=== PATIENT | female | born 1970 | race African-American/Black ===

== ENCOUNTER 2016-06-13 09:30 | Inpatient (IN) | payer OTHER ==
[2016-06-13 10:55] VITALS: BMI 25.2
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
[2016-06-13] MEDS ORDERED: guaiFENesin/D-METHORPHAN HB 10 ML UNIT-DOSE CUPS PO PRN (13:16)
[2016-06-13] MEDS ORDERED: ACETAMINOPHEN 325 MG TABLET (FP) PO PRN (13:16)
[2016-06-13] MEDS ORDERED: MAGNESIUM CITRATE 300 ML BOTTLE PO PRN (13:16)
[2016-06-13] MEDS ORDERED: MAGNESIUM HYDROX 2400MG/30ML ORAL SUSPENSION 30 ML CUP PO PRN (13:16)
[2016-06-13] MEDS ORDERED: LOPERAMIDE HCL 2 MG CAPSULE PO PRN (13:16)
[2016-06-13] MEDS ORDERED: IBUPROFEN 400 MG TABLET (FP) PO PRN (13:16)
[2016-06-13] MEDS ORDERED: MENTHOL/PHENOL 1 EACH UD MM PRN (13:16)
[2016-06-13] MEDS ORDERED: P-EPHED 60MG/TRIPROLIDI 2.5MG TABLET PO PRN (13:16)
[2016-06-13] MEDS ORDERED: MAG HYDROX/AL HYDROX/SIMETH 30 ML UNIT-DOSE CUP PO PRN (13:16)
[2016-06-13] MEDS ORDERED: NICOTINE POLACRILEX 2 MG GUM BUC PRN (13:19)
[2016-06-13] MEDS ORDERED: METHADONE HCL 10 MG TABLET (FOR DETOX USE ONLY) PO ONE ×2 (13:52→23:00)
[2016-06-13] MEDS: chlordiazePOXIDE HCL 25 MG CAPSULE PO PRN (14:44)
[2016-06-13] MEDS: NICOTINE 21 MG/24 HOURS TOPICAL PATCH TD SCH (14:45)
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
[2016-06-13] MEDS: chlordiazePOXIDE HCL 25 MG CAPSULE PO SCH ×2 (17:32→22:56)
[2016-06-13 20:03] LABS: URINE APPEARANCE TURBID; URINE BILIRUBIN NEGATIVE (NEGATIVE); URINE BLOOD NEGATIVE (NEGATIVE); URINE COLOR YELLOW; URINE GLUCOSE (UA) NEGATIVE (NEGATIVE); URINE KETONE NEGATIVE (NEGATIVE); URINE LEUK ESTERASE NEGATIVE (NEGATIVE); URINE NITRITE NEGATIVE (NEGATIVE); URINE PROTEIN NEGATIVE (NEGATIVE); URINE UROBILINOGEN NEGATIVE E.U./dl (0.2-1.0)
[2016-06-13] MEDS ORDERED: QUEtiapine FUMARATE 50 MG TABLET PO SCH (22:00)
[2016-06-13] MEDS: NEO/POLYMYX B SULF/DEXAMETH OPHTHALMIC OINTMENT 3.5 GM OU SCH (22:56)
[2016-06-13] MEDS: THIAMINE HCL 100 MG TABLET (FP) PO SCH (22:57)
[2016-06-14] MEDS: chlordiazePOXIDE HCL 25 MG CAPSULE PO PRN ×2 (02:25→19:56)
[2016-06-14] MEDS: chlordiazePOXIDE HCL 25 MG CAPSULE PO SCH ×4 (05:48→22:42)
[2016-06-14] MEDS ORDERED: METHADONE HCL 10 MG TABLET (FOR DETOX USE ONLY) PO SCH (10:00)
[2016-06-14 10:29] LABS: MCH 30.6 pg (25.7-33.7); MCHC 32.4 g/dl (32.0-36.0); MEAN CELL VOLUME 94.3 fl (80-96); MEAN PLT VOLUME 9.6 fl (7.5-11.1); PLATELET COUNT 344 K/MM3 (134-434); RDW 20.3 % (11.6-15.6); WHITE BLOOD COUNT 6.7 K/mm3 (4.0-10.0)
[2016-06-14] MEDS ORDERED: COLLOIDAL OATMEAL 1 BAR EACH TP PRN (10:39)
[2016-06-14 10:59] LABS: ALBUMIN 3.8 g/dl (3.4-5.0); ALK PHOS 112 U/L (45-117); ANION GAP 10 (8-16); BILIRUBIN,TOTAL 0.3 mg/dL (0.2-1.0); CALCIUM 9.2 mg/dL (8.5-10.1); CO2 28 mmol/L (21-32); CREATININE 0.8 mg/dL (0.55-1.02); GLUCOSE,RANDOM 161 mg/dL (74-106); SGOT/AST 47 U/L (15-37); SGPT/ALT 48 U/L (12-78); TOT PROT 7.2 g/dl (6.4-8.2)
[2016-06-14] MEDS: NEO/POLYMYX B SULF/DEXAMETH OPHTHALMIC OINTMENT 3.5 GM OU SCH ×2 (11:03→22:42)
[2016-06-14] MEDS: PRENATAL VITAMINS W/ FOLIC ACID TABLET (FP) PO SCH (11:04)
[2016-06-14] MEDS: NICOTINE 21 MG/24 HOURS TOPICAL PATCH TD SCH (11:04)
[2016-06-14] MEDS: FLUoxetine HCL 10 MG TABLET PO SCH (11:05)
[2016-06-14] MEDS: diphenhydrAMINE HCL 25 MG CAPSULE (FP) PO PRN ×2 (11:06→18:18)
--- NOTE | 2016-06-14 13:15 | PN ---
BHS COWS - Scale Resting Pulse: 1= [place] 81-100 Sweatin= Chills/Flushing Restless Observation: 3= Extraneous Movement Pupil Size: 1= Pupils >than Normal Bone or Joint Aches: 2= Severe Diffuse Aches Runny Nose/ Eye Tearin= Runny Nose/Eyes GI Upset > 30mins: 3= Vomiting/Diarrhea Tremor Observation of Outstretched Hands: 2= Slight Tremor Visible Yawning Observation: 1= 1-2x During Session Anxiety or Irritability: 2=Irritable/Anxious Goose Flesh Skin: 0=Smooth Skin COWS Score: 18 S Progress Note (SOAP) Subjective: ALERT,IRRITABLE,ANXIOUS,INTERRUPTED SLEEP,TREMOR,PAIN IN THE BODY,JOINT AND BACK ,TREMOR ITCHING OF FACIAL AREA Objective: 06/14/16 13:14 Vital Signs Temperature 98.4 F 06/14/16 10:56 Pulse Rate 90 06/14/16 10:56 Respiratory Rate 139 H 06/14/16 10:56 Blood Pressure 131/79 06/14/16 10:56 O2 Sat by Pulse Oximetry (%) Laboratory Last Values WBC 6.7 K/mm3 (4.0-10.0) D 06/14/16 06:20 RBC 4.53 M/mm3 (3.60-5.2) 06/14/16 06:20 Hgb 13.8 GM/dL (10.7-15.3) D 06/14/16 06:20 Hct 42.7 % (32.4-45.2) 06/14/16 06:20 MCV 94.3 fl (80-96) 06/14/16 06:20 MCHC 32.4 g/dl (32.0-36.0) 06/14/16 06:20 RDW 20.3 % (11.6-15.6) H D 06/14/16 06:20 Plt Count 344 K/MM3 (134-434) D 06/14/16 06:20 MPV 9.6 fl (7.5-11.1) 06/14/16 06:20 Sodium 139 mmol/L (136-145) 06/14/16 06:20 Potassium 4.4 mmol/L (3.5-5.1) 06/14/16 06:20 Chloride 101 mmol/L (98-107) 06/14/16 06:20 Carbon Dioxide 28 mmol/L (21-32) 06/14/16 06:20 Anion Gap 10 (8-16) 06/14/16 06:20 BUN 11 mg/dL (7-18) 06/14/16 06:20 Creatinine 0.8 mg/dL (0.55-1.02) D 06/14/16 06:20 Creat Clearance w eGFR > 60 (>60) 06/14/16 06:20 Random Glucose 161 mg/dL (74-106) H 06/14/16 06:20 Calcium 9.2 mg/dL (8.5-10.1) 06/14/16 06:20 Total Bilirubin 0.3 mg/dL (0.2-1.0) D 06/14/16 06:20 AST 47 U/L (15-37) H D 06/14/16 06:20 ALT 48 U/L (12-78) D 06/14/16 06:20 Alkaline Phosphatase 112 U/L (45-117) 06/14/16 06:20 Total Protein 7.2 g/dl (6.4-8.2) 06/14/16 06:20 Albumin 3.8 g/dl (3.4-5.0) 06/14/16 06:20 Urine Color Yellow 06/13/16 19:45 Urine Appearance Turbid 06/13/16 19:45 Urine pH 8.0 (5.0-8.0) 06/13/16 19:45 Ur Specific [place] 1.018 (1.001-1.035) 06/13/16 19:45 Urine Protein Negative (NEGATIVE) 06/13/16 19:45 Urine Glucose (UA) Negative (NEGATIVE) 06/13/16 19:45 Urine Ketones Negative (NEGATIVE) 06/13/16 19:45 Urine Blood Negative (NEGATIVE) 06/13/16 19:45 Urine Nitrite Negative (NEGATIVE) 06/13/16 19:45 Urine Bilirubin Negative (NEGATIVE) 06/13/16 19:45 Urine Urobilinogen Negative E.U./dl (0.2-1.0) 06/13/16 19:45 Ur Leukocyte Esterase Negative (NEGATIVE) 06/13/16 19:45 Assessment: 06/14/16 13:15 WITHDRAWAL SYMPTOM Plan: CONTINUE DETOX,BGM MONITORING INITIAL GLUCOSE IS 161
--- NOTE | 2016-06-14 18:31 | EKG ---
Test Reason : Blood Pressure : / mmHG Vent. Rate : 098 BPM Atrial Rate : 098 BPM P-R Int : 122 ms QRS Dur : 078 ms QT Int : 348 ms P-R-T Axes : 062 042 037 degrees QTc Int : 444 ms NORMAL SINUS RHYTHM POSSIBLE LEFT ATRIAL ENLARGEMENT SEPTAL INFARCT , AGE UNDETERMINED ABNORMAL ECG NO PREVIOUS ECGS AVAILABLE Confirmed by IRINA CHRIS MD ([id number]) on 06/14/2016 6:31:14 PM Referred By: Confirmed By:IRINA CHRIS MD
[2016-06-14] MEDS: diphenhydrAMINE HCL 50 MG CAPSULE PO PRN (22:41)
[2016-06-14] MEDS: THIAMINE HCL 100 MG TABLET (FP) PO SCH (22:41)
[2016-06-14] MEDS: QUEtiapine FUMARATE 100 MG TABLET (FP) PO SCH (22:42)
[2016-06-14] MEDS: HYDROCORTISONE 1% TOPICAL CREAM 30 GM TUBE TP SCH (22:42)
[2016-06-15] MEDS: hydrOXYzine PAMOATE 50 MG CAPSULE (FP) PO PRN (03:51)
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
[2016-06-15] MEDS: chlordiazePOXIDE HCL 25 MG CAPSULE PO SCH ×2 (06:24→10:42)
[2016-06-15] MEDS: PRENATAL VITAMINS W/ FOLIC ACID TABLET (FP) PO SCH (10:40)
[2016-06-15] MEDS: METHADONE HCL 5 MG TABLET (FOR DETOX USE ONLY) PO SCH (10:42)
[2016-06-15] MEDS: HYDROCORTISONE 1% TOPICAL CREAM 30 GM TUBE TP SCH ×2 (10:42→22:45)
[2016-06-15] MEDS: NEO/POLYMYX B SULF/DEXAMETH OPHTHALMIC OINTMENT 3.5 GM OU SCH ×2 (10:42→22:47)
[2016-06-15] MEDS: NICOTINE 21 MG/24 HOURS TOPICAL PATCH TD SCH (10:43)
[2016-06-15] MEDS: FLUoxetine HCL 10 MG TABLET PO SCH (10:45)
[2016-06-15] MEDS: chlordiazePOXIDE HCL 25 MG CAPSULE PO PRN (13:46)
--- NOTE | 2016-06-15 17:10 | PN ---
S CIWA - CIWA Score Nausea/Vomitin Muscle Tremors: 4-Moderate,w/Arms Extend Anxiety: 4-Mod. Anxious/Guarded Agitation: 4-Moderately Restless Paroxysmal Sweats: No Perspiration Orientation: 0-Oriented Tacttile Disturbances: 1-Very Mild Itch/Numbness Auditory Disturbances: 0-None Visual Disturbances: 0-None Headache: 2-Mild CIWA-Ar Total Score: 18 BHS COWS - Scale Resting Pulse: 1= [place] 81-100 Sweatin= Chills/Flushing Restless Observation: 3= Extraneous Movement Pupil Size: 0= Normal to Room Light Bone or Joint Aches: 2= Severe Diffuse Aches Runny Nose/ Eye Tearin= Runny Nose/Eyes GI Upset > 30mins: 2= Nausea/Diarrhea Tremor Observation of Outstretched Hands: 2= Slight Tremor Visible Yawning Observation: 0= None Anxiety or Irritability: 2=Irritable/Anxious Goose Flesh Skin: 0=Smooth Skin COWS Score: 15 BHS Progress Note (SOAP) Subjective: Back pain, rhinorrhea, sweating, anxious, restless, interrupted sleep, chills; patient reported she was sitting at edge of her bed last night and fell to the floor hitting her left shoulder. She denies hitting her head and denies shoulder pain. Objective: 06/15/16 17:09 Last Vital Signs Temp Pulse Resp BP Pulse Ox 98.1 F 81 18 103/64 06/15/16 16:50 06/15/16 16:50 06/15/16 16:50 06/15/16 16:50 Laboratory Tests 06/13/16 06/14/16 06/14/16 19:45 06:20 06:20 WBC 6.7 D RBC 4.53 Hgb 13.8 D Hct 42.7 MCV 94.3 MCHC 32.4 RDW 20.3 H D Plt Count 344 D MPV 9.6 Sodium 139 Potassium 4.4 Chloride 101 Carbon Dioxide 28 Anion Gap 10 BUN 11 Creatinine 0.8 D Creat Clearance w eGFR > 60 POC Glucometer Random Glucose 161 H Calcium 9.2 Total Bilirubin 0.3 D AST 47 H D ALT 48 D Alkaline Phosphatase 112 Total Protein 7.2 Albumin 3.8 Urine Color Yellow Urine Appearance Turbid Urine pH 8.0 Ur Specific [place] 1.018 Urine Protein Negative Urine Glucose (UA) Negative Urine Ketones Negative Urine Blood Negative Urine Nitrite Negative Urine Bilirubin Negative Urine Urobilinogen Negative Ur Leukocyte Esterase Negative RPR Titer 06/14/16 06/14/16 06/15/16 06:20 16:34 06:32 WBC RBC Hgb Hct MCV MCHC RDW Plt Count MPV Sodium Potassium Chloride Carbon Dioxide Anion Gap BUN Creatinine Creat Clearance w eGFR POC Glucometer 105 119 Random Glucose Calcium Total Bilirubin AST ALT Alkaline Phosphatase Total Protein Albumin Urine Color Urine Appearance Urine pH Ur Specific [place] Urine Protein Urine Glucose (UA) Urine Ketones Urine Blood Urine Nitrite Urine Bilirubin Urine Urobilinogen Ur Leukocyte Esterase RPR Titer Nonreactive Labs noted RN reported + ppd reading Assessment: 06/15/16 17:09 Withdrawal symptoms Noted with PPD + S/P Fall without injury Plan: Continue detox Positive PPD: chest xray PA/Lateral in AM S/P Fall: fall precaution maintained, continue safe milieu
[2016-06-15] MEDS: chlordiazePOXIDE 5 MG CAPSULE PO SCH ×2 (17:25→22:46)
[2016-06-15] MEDS: diphenhydrAMINE HCL 25 MG CAPSULE (FP) PO PRN (18:25)
[2016-06-15] MEDS: AMMONIUM LACTATE 12% LOTION 225 GM BOTTLE TP SCH (22:46)
[2016-06-15] MEDS: THIAMINE HCL 100 MG TABLET (FP) PO SCH (22:47)
[2016-06-15] MEDS: QUEtiapine FUMARATE 100 MG TABLET (FP) PO SCH (22:47)
[2016-06-15] MEDS: diphenhydrAMINE HCL 50 MG CAPSULE PO PRN (22:49)
[2016-06-16] MEDS: hydrOXYzine PAMOATE 50 MG CAPSULE (FP) PO PRN (01:35)
[2016-06-16] MEDS: chlordiazePOXIDE 5 MG CAPSULE PO SCH ×2 (05:46→10:43)
[2016-06-16] MEDS: PRENATAL VITAMINS W/ FOLIC ACID TABLET (FP) PO SCH (10:43)
[2016-06-16] MEDS: HYDROCORTISONE 1% TOPICAL CREAM 30 GM TUBE TP SCH ×2 (10:43→22:31)
[2016-06-16] MEDS: NEO/POLYMYX B SULF/DEXAMETH OPHTHALMIC OINTMENT 3.5 GM OU SCH ×2 (10:43→22:32)
[2016-06-16] MEDS: METHADONE HCL 5 MG TABLET (FOR DETOX USE ONLY) PO SCH (10:43)
[2016-06-16] MEDS: FLUoxetine HCL 10 MG TABLET PO SCH (10:44)
[2016-06-16] MEDS: NICOTINE 21 MG/24 HOURS TOPICAL PATCH TD SCH (10:44)
[2016-06-16] MEDS: AMMONIUM LACTATE 12% LOTION 225 GM BOTTLE TP SCH ×2 (10:44→22:31)
--- NOTE | 2016-06-16 12:20 | PN ---
BHS Progress Note (SOAP) Subjective: interrupted sleep, sweats, itchy eyes-skin Objective: 06/16/16 12:18 Vital Signs Temperature 97.9 F 06/16/16 10:00 Pulse Rate 90 06/16/16 10:00 Respiratory Rate 20 06/16/16 10:00 Blood Pressure 126/74 06/16/16 10:00 O2 Sat by Pulse Oximetry (%) Laboratory Tests 06/13/16 06/14/16 06/14/16 19:45 06:20 06:20 WBC 6.7 D RBC 4.53 Hgb 13.8 D Hct 42.7 MCV 94.3 MCHC 32.4 RDW 20.3 H D Plt Count 344 D MPV 9.6 Sodium 139 Potassium 4.4 Chloride 101 Carbon Dioxide 28 Anion Gap 10 BUN 11 Creatinine 0.8 D Creat Clearance w eGFR > 60 POC Glucometer Random Glucose 161 H Calcium 9.2 Total Bilirubin 0.3 D AST 47 H D ALT 48 D Alkaline Phosphatase 112 Total Protein 7.2 Albumin 3.8 Urine Color Yellow Urine Appearance Turbid Urine pH 8.0 Ur Specific [place] 1.018 Urine Protein Negative Urine Glucose (UA) Negative Urine Ketones Negative Urine Blood Negative Urine Nitrite Negative Urine Bilirubin Negative Urine Urobilinogen Negative Ur Leukocyte Esterase Negative RPR Titer 06/14/16 06/14/16 06/15/16 06:20 16:34 06:32 WBC RBC Hgb Hct MCV MCHC RDW Plt Count MPV Sodium Potassium Chloride Carbon Dioxide Anion Gap BUN Creatinine Creat Clearance w eGFR POC Glucometer 105 119 Random Glucose Calcium Total Bilirubin AST ALT Alkaline Phosphatase Total Protein Albumin Urine Color Urine Appearance Urine pH Ur Specific [place] Urine Protein Urine Glucose (UA) Urine Ketones Urine Blood Urine Nitrite Urine Bilirubin Urine Urobilinogen Ur Leukocyte Esterase RPR Titer Nonreactive 06/15/16 06/16/16 16:48 06:29 WBC RBC Hgb Hct MCV MCHC RDW Plt Count MPV Sodium Potassium Chloride Carbon Dioxide Anion Gap BUN Creatinine Creat Clearance w eGFR POC Glucometer 134 199 Random Glucose Calcium Total Bilirubin AST ALT Alkaline Phosphatase Total Protein Albumin Urine Color Urine Appearance Urine pH Ur Specific [place] Urine Protein Urine Glucose (UA) Urine Ketones Urine Blood Urine Nitrite Urine Bilirubin Urine Urobilinogen Ur Leukocyte Esterase RPR Titer pt aox3 in nad ambulating eyes emir lateral skin redness Assessment: 06/16/16 12:19 withdrawl sx's itchy eye s Plan: cont. detox increase fluids cont ab/sterriod cream
--- NOTE | 2016-06-16 13:50 | CONSULT ---
[facility] Psychiatric Consult - Data Date of interview: 06/16/16 Admission source: [facility] Psychiatric Findings - Problem List ([place] 1, 2,3) (1) Alcohol dependence with uncomplicated withdrawal Current Visit: Yes Status: Acute (2) Opioid dependence with withdrawal Current Visit: Yes Status: Acute (3) Opioid dependence on agonist therapy Current Visit: Yes Status: Acute (4) Nicotine dependence Current Visit: Yes Status: Acute (5) Substance induced mood disorder Current Visit: Yes Status: Acute (6) Chronic low back pain Current Visit: Yes Status: Chronic (7) Insomnia Current Visit: Yes Status: Acute
[2016-06-16] MEDS: chlordiazePOXIDE HCL 10 MG CAPSULE PO SCH ×2 (17:13→22:32)
[2016-06-16] MEDS: diphenhydrAMINE HCL 25 MG CAPSULE (FP) PO PRN (17:15)
--- NOTE | 2016-06-16 17:44 | PN ---
Psychiatric Progress Note Vital Signs: Vital Signs Period Temp Pulse Resp BP Sys/Barton Pulse Ox Last 24 Hr 97.9 F-98.2 F 75-90 16-20 103-126/63-76 Date of Session: 06/16/16 Chief Complaint:: " I cannot sleep at night." HPI: Day 4 of detox treatment for alcohol and heroin dependence.Uneventful hospital course except for complaint of chronic insomnia.Patient is requesting zolpidem at bedtime.This is the reason for this re-consult. ROS: Unremarkable.Patient is ambulatory,visible and well controlled.Intact cognition. Current Medications: Active Medications Generic Name Dose Route Start Last Admin Trade Name Freq PRN Reason Stop Dose Admin Acetaminophen 650 mg 06/13/16 13:16 Tylenol - PO Q4H PRN FEVER OR PAIN Al Hydroxide/Mg Hydroxide 30 ml 06/13/16 13:16 Mylanta Oral Suspension - PO Q6H PRN DYSPEPSIA Chlordiazepoxide HCl 10 mg 06/16/16 17:00 06/16/16 17:13 Librium - PO 06/17/16 11:01 10 mg [id number] NORIS Administration Colloidal Oatmeal 1 applic 06/14/16 10:39 06/14/16 18:19 Aveeno Soap - TP 1 applic DAILY PRN Administration HYGEINE Diphenhydramine HCl 50 mg 06/13/16 13:16 06/15/16 22:49 Benadryl - PO 50 mg HSMR1 PRN Administration INSOMNIA Diphenhydramine HCl 25 mg 06/14/16 10:39 06/16/16 17:15 Benadryl - PO 25 mg Q6H PRN Administration FOR ITCHING Eucalyptus/Menthol/Phenol/Sorbitol 1 each 06/13/16 13:16 Cepastat Lozenge - MM Q4H PRN SORE THROAT Fluoxetine HCl 10 mg 06/14/16 10:00 06/16/16 10:44 Prozac - PO 10 mg DAILY NORIS Administration Guaifenesin 10 ml 06/13/16 13:16 Robitussin Dm - PO Q6H PRN COUGH Hydrocortisone 1 applic 06/14/16 22:00 06/16/16 10:43 Hytone 1% Cream - TP 1 applic BID NORIS Administration Hydroxyzine Pamoate 50 mg 06/15/16 00:41 06/16/16 01:35 Vistaril - PO 50 mg Q4H PRN Administration FOR ITCHING Ibuprofen 400 mg 06/13/16 13:16 06/15/16 18:25 Motrin - PO 400 mg Q6H PRN Administration SEVERE PAIN Lactic Acid 1 applic 06/15/16 22:00 06/16/16 10:44 Lac-Hydrin 12 TP 1 applic BID NORIS Administration Loperamide HCl 4 mg 06/13/16 13:16 Imodium - PO Q6H PRN DIARRHEA Magnesium Citrate 300 ml 06/13/16 13:16 Citroma - PO Q48H PRN CONSTIPATION Magnesium Hydroxide 30 ml 06/13/16 13:16 Milk Of Magnesia - PO DAILY PRN CONSTIPATION Methadone HCl 10 mg 06/17/16 10:00 Dolophine - PO 06/17/16 10:01 DAILY NORIS Methadone HCl 5 mg 06/18/16 06:00 Dolophine - PO 06/18/16 06:01 DAILY@0600 NORIS Neomycin/Polymyxin/Dexamethasone 1 applic 06/13/16 22:00 06/16/16 10:43 Maxitrol Eye Ointment - OU 1 applic BID NORIS Administration Nicotine 21 mg 06/13/16 13:52 06/16/16 10:44 Nicoderm Patch - TD Not Given DAILY NORIS Nicotine Polacrilex 2 mg 06/13/16 13:19 Nicorette Gum - BUC Q2H PRN NICOTINE REPLACEMENT RX Multivit/Folic Acid/Iron 1 tab 06/14/16 10:00 06/16/16 10:43 Vitamins ([facility]) - PO 1 tab DAILY NORIS Administration Pseudoephedrine/Triprolidine 1 combo 06/13/16 13:16 Actifed - PO TID PRN NASAL CONGESTION Quetiapine Fumarate 100 mg 06/14/16 22:00 06/15/16 22:47 Seroquel - PO 100 mg HS NORIS Administration Thiamine HCl 100 mg 06/13/16 22:00 06/15/16 22:47 Vitamin B1 - PO 100 mg HS NORIS Administration Medication(s) Change(s): Ambien 10 mg po hs prn.Patient is made aware of the risk of parasomnias.She states that she never experienced adverse effects with zolpidem.She agrees with this careplan. Current Side Effect: No Lab tests ordered: No Lab tests reviewed: Yes Provider note:: Patient is doing fine.No evidence of psychosis or mood swings.Ms Butler has clearly indicated to this verse writer that she wanted " ambien to be given to me at bedtime ".No other request or complaints.Ms Butler expressed her satisfaction at the information that zolpidem will be added to her regimen of medications.Stable mental status (see report).Unremarkable hospital course. Total face to face time:: 30 Mental Status Exam - Mental Status Exam Alert and Oriented to: Time, Place, Person Cognitive Function: Good Patient Appearance: Well Groomed Mood: Hopeful, Euthymic Affect: Appropriate, Normal Range Patient Behavior: Appropriate, Cooperative Speech Pattern: Clear Voice Loudness: Normal Thought Process: Goal Oriented Thought Disorder: Not Present Hallucinations: Denies Suicidal Ideation: Denies Homicidal Ideation: Denies Insight/Judgement: Poor Sleep: Poorly, Difficulty falling asleep Appetite: Good Muscle strength/Tone: Normal Gait/Station: Normal Psychiatric Treatment Plan - Problem List (1) Alcohol dependence with uncomplicated withdrawal Current Visit: Yes (2) Opioid dependence with withdrawal Current Visit: Yes (3) Opioid dependence on agonist therapy Current Visit: Yes (4) Nicotine dependence Current Visit: Yes (5) Substance induced mood disorder Current Visit: Yes (6) Chronic low back pain Current Visit: Yes (7) Insomnia Current Visit: Yes
[2016-06-16] MEDS ORDERED: ZOLPIDEM TARTRATE 10 MG TABLET (PARK CARE ONLY) PO PRN (17:48)
[2016-06-16] MEDS: diphenhydrAMINE HCL 50 MG CAPSULE PO PRN (22:30)
[2016-06-16] MEDS: QUEtiapine FUMARATE 100 MG TABLET (FP) PO SCH (22:32)
[2016-06-16] MEDS: THIAMINE HCL 100 MG TABLET (FP) PO SCH (22:32)
[2016-06-17] MEDS: chlordiazePOXIDE HCL 10 MG CAPSULE PO SCH ×2 (05:49→10:26)
[2016-06-17] MEDS: diphenhydrAMINE HCL 25 MG CAPSULE (FP) PO PRN ×2 (05:51→15:42)
[2016-06-17] MEDS ORDERED: chlordiazePOXIDE 5 MG CAPSULE ONE (09:23)
[2016-06-17] MEDS ORDERED: METHADONE HCL 10 MG TABLET (FOR DETOX USE ONLY) PO SCH (10:00)
[2016-06-17] MEDS: PRENATAL VITAMINS W/ FOLIC ACID TABLET (FP) PO SCH (10:24)
[2016-06-17] MEDS: NICOTINE 21 MG/24 HOURS TOPICAL PATCH TD SCH (10:25)
[2016-06-17] MEDS: FLUoxetine HCL 10 MG TABLET PO SCH (10:25)
[2016-06-17] MEDS: NEO/POLYMYX B SULF/DEXAMETH OPHTHALMIC OINTMENT 3.5 GM OU SCH ×2 (10:25→22:55)
[2016-06-17] MEDS: AMMONIUM LACTATE 12% LOTION 225 GM BOTTLE TP SCH ×2 (10:27→22:55)
[2016-06-17] MEDS: HYDROCORTISONE 1% TOPICAL CREAM 30 GM TUBE TP SCH ×2 (10:33→22:56)
--- NOTE | 2016-06-17 10:53 | PN ---
BHS Progress Note (SOAP) Subjective: irritable agitation interrupted sleep Objective: 06/17/16 10:52 Vital Signs Temperature 99.6 F 06/17/16 10:06 Pulse Rate 78 06/17/16 10:06 Respiratory Rate 18 06/17/16 10:06 Blood Pressure 125/75 06/17/16 10:06 O2 Sat by Pulse Oximetry (%) awake/alert ambulating no acute distress Assessment: 06/17/16 10:53 withdrawal sx Plan: continue detox increase fluids d/c in am
[2016-06-17] MEDS: QUEtiapine FUMARATE 100 MG TABLET (FP) PO SCH (22:55)
[2016-06-17] MEDS: THIAMINE HCL 100 MG TABLET (FP) PO SCH (22:55)
[2016-06-17] MEDS: diphenhydrAMINE HCL 50 MG CAPSULE PO PRN (22:56)
[2016-06-18] MEDS: hydrOXYzine PAMOATE 50 MG CAPSULE (FP) PO PRN ×3 (02:19→11:04)
[2016-06-18] MEDS ORDERED: METHADONE HCL 5 MG TABLET (FOR DETOX USE ONLY) PO SCH (06:00)
--- NOTE | 2016-06-18 09:27 | DS ---
[facility] Detox Discharge Summary Admission Date: 06/13/16 - History Present History: Alcohol Dependence, Cocaine Dependence, Opioid Dependence - Physical Exam Results Vital Signs: Vital Signs Temperature 97.1 F L 06/18/16 07:02 Pulse Rate 84 06/18/16 07:02 Respiratory Rate 18 06/18/16 07:02 Blood Pressure 110/60 06/18/16 07:02 O2 Sat by Pulse Oximetry (%) - Treatment Hospital Course: Detox Protocol Followed, Detoxed Safely, Responded well, Discharged Condition Good - Medication Discharge Medications: Ambulatory Orders Fluoxetine HCl [Prozac -] 10 mg PO DAILY #30 capsule 06/14/16 Quetiapine Fumarate [Seroquel] 100 mg PO HS #30 tablet 06/14/16 - AMA Did Patient Leave Against Medical Advice: No
[2016-06-18] MEDS ORDERED: FLUoxetine HCL 10 MG CAPSULE (FP) PO SCH (10:00)
[2016-06-18 10:49] VITALS: BP 127/60; PULSE 91; TEMP 98.2
[2016-06-18] MEDS: PRENATAL VITAMINS W/ FOLIC ACID TABLET (FP) PO SCH (10:59)
[2016-06-18] MEDS: HYDROCORTISONE 1% TOPICAL CREAM 30 GM TUBE TP SCH (11:00)
[2016-06-18] MEDS: NEO/POLYMYX B SULF/DEXAMETH OPHTHALMIC OINTMENT 3.5 GM OU SCH (11:01)
[2016-06-18] MEDS: NICOTINE 21 MG/24 HOURS TOPICAL PATCH TD SCH (11:03)
[2016-06-18] MEDS: AMMONIUM LACTATE 12% LOTION 225 GM BOTTLE TP SCH (11:04)
== END 2016-06-18 11:11 | disposition other institution (70) | DRG 773 ==
LOC: YASAS 09:30 → Y6N 13:24
PROVIDERS: ADMIT Internal Medicine; ATTEND Internal Medicine
PROC: HZ2ZZZZ Detoxification Services for Substance Abuse Treatment (ICD-10-PCS; principal; 2016-06-13)
DX: F11.23 Opioid dependence with withdrawal (principal); F10.230 Alcohol dependence with withdrawal, uncomplicated; F14.20 Cocaine dependence, uncomplicated; F17.210 Nicotine dependence, cigarettes, uncomplicated; F19.24 Other psychoactive substance dependence with psychoactive substance-induced mood disorder; M54.5 Low back pain; G89.29 Other chronic pain; G47.00 Insomnia, unspecified; H57.8 Other specified disorders of eye and adnexa; R76.11 Nonspecific reaction to tuberculin skin test without active tuberculosis; I10 Essential (primary) hypertension; M19.90 Unspecified osteoarthritis, unspecified site; Z91.14 Patient's other noncompliance with medication regimen; W06.XXXA Fall from bed, initial encounter; Z91.81 History of falling; Y93.89 Activity, other specified; Y92.230 Patient room in hospital as the place of occurrence of the external cause
CPT/HCPCS: 36415; 71020-TC; 80053; 81003; 85027; 86593; 93005; 93010

== ENCOUNTER 2016-06-18 11:26 | Inpatient (IN) | payer OTHER ==
--- NOTE | 2016-06-18 13:51 | HP ---
Psychiatrist Admission - Data Date of interview: 06/18/16 Admission source: [address] [place] [address] detox Identifying data: This is the fourth admission to [address] [place] [address] for this 45 years old AA single mother of 4 adult children, unemployed,homeless,supported by PA and family. Medical History: Significant for Low back pain. Psychiatric History: Patient reports first contact with psychiatrist at school age due to behavioral problems,poor concentration.She was dx with ADHD and placed on Ritalin for a while.Patient denies psychiatric admissions.she was seen psychiatrist on outpatient basis mostly when she is at Drug rehabilitation treatment .Currently she is on Seroquel 100 mg po hs and Prozac 10 mg po daily prescribed by psychiatrist at [facility] a few months ago and then continued in Detox on [address] [place] [address] . Vital Signs: Vital Signs - 24 hr 06/18/16 11:53 Temperature 98.1 F Pulse Rate 91 H Respiratory 18 Rate Blood Pressure 121/79 Allergies/Adverse Reactions: Allergies Allergy/AdvReac Type Severity Reaction Status Date / Time pork derived (porcine) Allergy Severe Hives Verified 06/13/16 12:23 No Known Drug Allergies Allergy Verified 06/13/16 12:23 red sauce Allergy Severe Hives Uncoded 06/13/16 12:23 NKDA Allergy Uncoded 06/13/16 12:23 Date of last physical exam: 06/13/16 Concur with the findings of this exam: Yes - Substance Abuse/Tx History Hx Alcohol Use: Yes (reports drinking since 19 yo,2 pints of vodka) Hx Substance Use: Yes (heroin since 42 -5 bags,cocaine) Substance Use Type: Alcohol, Cocaine, Heroin Hx Substance Use Treatment: Yes (completed this program in 2016) - Admission Criteria Previous failed treatment: Yes Poor recovery environment: Yes Comorbidities: Yes Lacks judgement: Yes Mental Status Exam - Mental Status Exam Alert and Oriented to: Time, Place, Person Cognitive Function: Grossly Intact Patient Appearance: Unkempt Mood: Sad, Irritable Affect: Labile Patient Behavior: Cooperative Speech Pattern: Clear Voice Loudness: Mildly Loud Thought Process: Goal Oriented Thought Disorder: Being Controlled Hallucinations: Denies Suicidal Ideation: Denies Homicidal Ideation: Denies Insight/Judgement: Fair Sleep: Difficulty falling asleep Appetite: Good Muscle strength/Tone: Normal Gait/Station: Normal Psychiatric Findings - Problem List ([place] 1, 2,3) (1) Nicotine dependence Current Visit: No Status: Acute (2) Opioid dependence on agonist therapy Current Visit: No Status: Acute (3) Substance induced mood disorder Current Visit: No Status: Acute (4) Alcohol dependence Current Visit: No Status: Chronic - Initial Treatment Plan Initial Treatment Plan: Continue Seroquel 100 mg po hs,start Belsomra 10 mg po hs. Will monitor progress.
--- NOTE | 2016-06-18 14:26 | HP ---
[facility] Rehab Assess/Revision - Admission History Admitted to Rehab from: [facility] Date of Admission to Rehab: 06/18/16 - Vital signs Vital Signs: Vital Signs Period Temp Pulse Resp BP Sys/Barton Pulse Ox Last 24 Hr 98.1 F 91 18 121/79 - Findings Detox History & Physical reviewed: Yes Concur with findings: Yes
[2016-06-18] MEDS ORDERED: P-EPHED 60MG/TRIPROLIDI 2.5MG TABLET PO PRN (14:29)
[2016-06-18] MEDS ORDERED: NICOTINE POLACRILEX 2 MG GUM BUC PRN (14:29)
[2016-06-18] MEDS ORDERED: MENTHOL/PHENOL 1 EACH UD MM PRN (14:29)
[2016-06-18] MEDS ORDERED: guaiFENesin/D-METHORPHAN HB 10 ML UNIT-DOSE CUPS PO PRN (14:29)
[2016-06-18] MEDS ORDERED: MAGNESIUM HYDROX 2400MG/30ML ORAL SUSPENSION 30 ML CUP PO PRN (14:29)
[2016-06-18] MEDS ORDERED: MAGNESIUM CITRATE 300 ML BOTTLE PO PRN (14:29)
[2016-06-18] MEDS ORDERED: LOPERAMIDE HCL 2 MG CAPSULE PO PRN (14:29)
[2016-06-18] MEDS ORDERED: MAG HYDROX/AL HYDROX/SIMETH 30 ML UNIT-DOSE CUP PO PRN (14:29)
[2016-06-18] MEDS ORDERED: diphenhydrAMINE HCL 50 MG CAPSULE PO PRN (14:29)
[2016-06-18] MEDS: hydrOXYzine PAMOATE 50 MG CAPSULE (FP) PO PRN (17:09)
[2016-06-18] MEDS: QUEtiapine FUMARATE 100 MG TABLET (FP) PO SCH (21:50)
[2016-06-18] MEDS: THIAMINE HCL 100 MG TABLET (FP) PO SCH (21:50)
[2016-06-18] MEDS ORDERED: PT OWN MED DRAWER 7, Y5N ONE (21:51)
[2016-06-18] MEDS: NEO/POLYMYX B SULF/DEXAMETH OPHTHALMIC OINTMENT 3.5 GM OU SCH (21:52)
[2016-06-19] MEDS: IBUPROFEN 400 MG TABLET (FP) PO PRN (03:50)
[2016-06-19] MEDS: hydrOXYzine PAMOATE 50 MG CAPSULE (FP) PO PRN ×3 (03:54→15:22)
[2016-06-19] MEDS: ACETAMINOPHEN 325 MG TABLET (FP) PO PRN (03:55)
[2016-06-19] MEDS: AMMONIUM LACTATE 12% LOTION 225 GM BOTTLE TP PRN (06:37)
[2016-06-19] MEDS ORDERED: PT OWN MED DRAWER 7, Y5N ONE ×2 (08:29→10:34)
[2016-06-19] MEDS: NEO/POLYMYX B SULF/DEXAMETH OPHTHALMIC OINTMENT 3.5 GM OU SCH (10:28)
[2016-06-19] MEDS: PRENATAL VITAMINS W/ FOLIC ACID TABLET (FP) PO SCH (10:28)
[2016-06-19] MEDS: QUEtiapine FUMARATE 100 MG TABLET (FP) PO SCH (21:50)
[2016-06-19] MEDS: THIAMINE HCL 100 MG TABLET (FP) PO SCH (21:50)
[2016-06-19] MEDS: NEO/POLYMYX B SULF/DEXAMETH OPHTHALMIC OINTMENT 3.5 GM TP SCH (21:51)
[2016-06-20] MEDS: ACETAMINOPHEN 325 MG TABLET (FP) PO PRN (00:33)
[2016-06-20] MEDS: hydrOXYzine PAMOATE 50 MG CAPSULE (FP) PO PRN ×5 (00:34→21:56)
[2016-06-20] MEDS: COLLOIDAL OATMEAL 1 BAR EACH TP PRN (06:19)
[2016-06-20] MEDS: AMMONIUM LACTATE 12% LOTION 225 GM BOTTLE TP PRN (06:19)
[2016-06-20] MEDS ORDERED: PT OWN MED DRAWER 7, Y5N ONE ×3 (08:38→20:08)
[2016-06-20] MEDS: PRENATAL VITAMINS W/ FOLIC ACID TABLET (FP) PO SCH (10:36)
[2016-06-20] MEDS: NEO/POLYMYX B SULF/DEXAMETH OPHTHALMIC OINTMENT 3.5 GM TP SCH ×2 (10:37→21:53)
--- NOTE | 2016-06-20 15:05 | PN ---
BHS Progress Note Note: edema of right leg,swelling of right leg ,denied trauma,pain on palpation,homann 's sign negative,will do venous droppler of right lower leg to r/o dvt on thu06/23/16
[2016-06-20] MEDS: THIAMINE HCL 100 MG TABLET (FP) PO SCH (21:53)
[2016-06-20] MEDS: QUEtiapine FUMARATE 100 MG TABLET (FP) PO SCH (21:53)
[2016-06-21] MEDS: hydrOXYzine PAMOATE 50 MG CAPSULE (FP) PO PRN ×4 (04:16→19:51)
[2016-06-21] MEDS: PRENATAL VITAMINS W/ FOLIC ACID TABLET (FP) PO SCH (10:38)
[2016-06-21] MEDS: NEO/POLYMYX B SULF/DEXAMETH OPHTHALMIC OINTMENT 3.5 GM TP SCH ×2 (10:38→21:44)
[2016-06-21] MEDS ORDERED: PT OWN MED DRAWER 7, Y5N ONE (10:39)
[2016-06-21] MEDS: AMMONIUM LACTATE 12% LOTION 225 GM BOTTLE TP PRN (10:42)
[2016-06-21] MEDS: diphenhydrAMINE HCL 25 MG CAPSULE (FP) PO PRN (14:02)
[2016-06-21] MEDS: THIAMINE HCL 100 MG TABLET (FP) PO SCH (21:44)
[2016-06-21] MEDS: QUEtiapine FUMARATE 100 MG TABLET (FP) PO SCH (21:44)
[2016-06-22] MEDS: hydrOXYzine PAMOATE 50 MG CAPSULE (FP) PO PRN ×3 (05:10→15:24)
[2016-06-22] MEDS: NEO/POLYMYX B SULF/DEXAMETH OPHTHALMIC OINTMENT 3.5 GM TP SCH ×2 (10:01→21:50)
[2016-06-22] MEDS: PRENATAL VITAMINS W/ FOLIC ACID TABLET (FP) PO SCH (10:02)
[2016-06-22] MEDS ORDERED: PT OWN MED DRAWER 7, Y5N ONE (14:05)
[2016-06-22] MEDS: diphenhydrAMINE HCL 25 MG CAPSULE (FP) PO PRN (18:11)
[2016-06-22] MEDS: QUEtiapine FUMARATE 100 MG TABLET (FP) PO SCH (21:49)
[2016-06-22] MEDS: THIAMINE HCL 100 MG TABLET (FP) PO SCH (21:49)
[2016-06-23] MEDS: hydrOXYzine PAMOATE 50 MG CAPSULE (FP) PO PRN ×4 (06:25→22:02)
[2016-06-23] MEDS ORDERED: PT OWN MED DRAWER 7, Y5N ONE (06:26)
[2016-06-23] MEDS: AMMONIUM LACTATE 12% LOTION 225 GM BOTTLE TP PRN (06:26)
[2016-06-23] MEDS: PRENATAL VITAMINS W/ FOLIC ACID TABLET (FP) PO SCH (10:39)
[2016-06-23] MEDS: NEO/POLYMYX B SULF/DEXAMETH OPHTHALMIC OINTMENT 3.5 GM TP SCH (10:39)
[2016-06-23] MEDS: IBUPROFEN 400 MG TABLET (FP) PO PRN (15:33)
[2016-06-23] MEDS: QUEtiapine FUMARATE 100 MG TABLET (FP) PO SCH (22:01)
[2016-06-23] MEDS: THIAMINE HCL 100 MG TABLET (FP) PO SCH (22:01)
[2016-06-24] MEDS: hydrOXYzine PAMOATE 50 MG CAPSULE (FP) PO PRN ×2 (06:07→13:33)
[2016-06-24] MEDS: COLLOIDAL OATMEAL 1 BAR EACH TP PRN (06:26)
[2016-06-24] MEDS: diphenhydrAMINE HCL 50 MG CAPSULE PO PRN ×2 (08:28→22:42)
[2016-06-24] MEDS: PRENATAL VITAMINS W/ FOLIC ACID TABLET (FP) PO SCH (10:41)
[2016-06-24] MEDS: BACITRACIN 0.9 GM PACKET TP SCH ×2 (15:23→21:59)
[2016-06-24] MEDS ORDERED: PT OWN MED DRAWER 7, Y5N ONE (20:23)
[2016-06-24] MEDS: QUEtiapine FUMARATE 100 MG TABLET (FP) PO SCH (21:59)
[2016-06-24] MEDS: THIAMINE HCL 100 MG TABLET (FP) PO SCH (22:00)
[2016-06-25] MEDS: ACETAMINOPHEN 325 MG TABLET (FP) PO PRN (06:43)
[2016-06-25] MEDS: hydrOXYzine PAMOATE 50 MG CAPSULE (FP) PO PRN ×3 (06:46→15:45)
[2016-06-25] MEDS: PRENATAL VITAMINS W/ FOLIC ACID TABLET (FP) PO SCH (10:45)
[2016-06-25] MEDS: BACITRACIN 0.9 GM PACKET TP SCH ×2 (10:45→23:22)
[2016-06-25] MEDS: QUEtiapine FUMARATE 100 MG TABLET (FP) PO SCH (23:21)
[2016-06-25] MEDS: diphenhydrAMINE HCL 50 MG CAPSULE PO PRN (23:22)
[2016-06-25] MEDS: THIAMINE HCL 100 MG TABLET (FP) PO SCH (23:22)
[2016-06-26] MEDS: hydrOXYzine PAMOATE 50 MG CAPSULE (FP) PO PRN ×3 (06:30→18:02)
[2016-06-26] MEDS: BACITRACIN 0.9 GM PACKET TP SCH ×2 (11:05→21:36)
[2016-06-26] MEDS: PRENATAL VITAMINS W/ FOLIC ACID TABLET (FP) PO SCH (11:05)
[2016-06-26] MEDS: diphenhydrAMINE HCL 50 MG CAPSULE PO PRN (21:36)
[2016-06-26] MEDS: QUEtiapine FUMARATE 100 MG TABLET (FP) PO SCH (21:36)
[2016-06-26] MEDS: THIAMINE HCL 100 MG TABLET (FP) PO SCH (21:37)
[2016-06-26] MEDS ORDERED: PT OWN MED DRAWER 7, Y5N ONE (22:21)
[2016-06-27] MEDS: hydrOXYzine PAMOATE 50 MG CAPSULE (FP) PO PRN (07:10)
[2016-06-27] MEDS: IBUPROFEN 400 MG TABLET (FP) PO PRN ×2 (09:06→15:53)
[2016-06-27] MEDS ORDERED: PT OWN MED DRAWER 7, Y5N ONE (09:13)
[2016-06-27] MEDS: PRENATAL VITAMINS W/ FOLIC ACID TABLET (FP) PO SCH (10:27)
[2016-06-27] MEDS: BACITRACIN 0.9 GM PACKET TP SCH ×2 (10:28→21:34)
[2016-06-27] MEDS: diphenhydrAMINE HCL 25 MG CAPSULE (FP) PO PRN (15:53)
[2016-06-27] MEDS: THIAMINE HCL 100 MG TABLET (FP) PO SCH (21:34)
[2016-06-27] MEDS: QUEtiapine FUMARATE 100 MG TABLET (FP) PO SCH (21:34)
[2016-06-28] MEDS: hydrOXYzine PAMOATE 50 MG CAPSULE (FP) PO PRN ×2 (07:01→15:26)
[2016-06-28] MEDS: PRENATAL VITAMINS W/ FOLIC ACID TABLET (FP) PO SCH (10:10)
[2016-06-28] MEDS: BACITRACIN 0.9 GM PACKET TP SCH ×2 (10:10→21:25)
[2016-06-28] MEDS ORDERED: PT OWN MED DRAWER 7, Y5N ONE (21:24)
[2016-06-28] MEDS: QUEtiapine FUMARATE 100 MG TABLET (FP) PO SCH (21:25)
[2016-06-28] MEDS: THIAMINE HCL 100 MG TABLET (FP) PO SCH (21:25)
[2016-06-28] MEDS: diphenhydrAMINE HCL 50 MG CAPSULE PO PRN (21:25)
[2016-06-28] MEDS: AMMONIUM LACTATE 12% LOTION 225 GM BOTTLE TP PRN (21:26)
[2016-06-29] MEDS: diphenhydrAMINE HCL 25 MG CAPSULE (FP) PO PRN (06:20)
[2016-06-29] MEDS: BACITRACIN 0.9 GM PACKET TP SCH ×2 (10:09→22:01)
[2016-06-29] MEDS: PRENATAL VITAMINS W/ FOLIC ACID TABLET (FP) PO SCH (10:09)
[2016-06-29] MEDS: hydrOXYzine PAMOATE 50 MG CAPSULE (FP) PO PRN ×2 (10:10→18:35)
[2016-06-29] MEDS: THIAMINE HCL 100 MG TABLET (FP) PO SCH (21:23)
[2016-06-29] MEDS: QUEtiapine FUMARATE 100 MG TABLET (FP) PO SCH (21:23)
[2016-06-29] MEDS: diphenhydrAMINE HCL 50 MG CAPSULE PO PRN (21:24)
[2016-06-30] MEDS: hydrOXYzine PAMOATE 50 MG CAPSULE (FP) PO PRN ×2 (02:43→07:40)
[2016-06-30 07:10] VITALS: BP 118/83; PULSE 86; TEMP 99
[2016-06-30] MEDS: PRENATAL VITAMINS W/ FOLIC ACID TABLET (FP) PO SCH (09:33)
[2016-06-30] MEDS: BACITRACIN 0.9 GM PACKET TP SCH (09:33)
--- NOTE | 2016-06-30 10:01 | PN ---
Psychiatric Progress Note Vital Signs: Vital Signs Period Temp Pulse Resp BP Sys/Barton Pulse Ox Last 24 Hr 99.0 F 86 18-18 118/83 Date of Session: 06/30/16 Chief Complaint:: Psychiatrist Discharge Note HPI: Patient addressing Alcohol Dependence comorbid with Opoid Dependence on Agonist Therapy, Nicotine Dependence and Substance-Induced Mood Disorder Current Medications: Active Medications Generic Name Dose Route Start Last Admin Trade Name Freq PRN Reason Stop Dose Admin Acetaminophen 650 mg 06/18/16 14:29 06/25/16 06:43 Tylenol - PO 650 mg Q4H PRN Administration FEVER OR PAIN Al Hydroxide/Mg Hydroxide 30 ml 06/18/16 14:29 Mylanta Oral Suspension - PO Q6H PRN DYSPEPSIA Bacitracin 0.9 gm 06/24/16 13:54 06/30/16 09:33 Bacitracin - TP 0.9 gm BID NORIS Administration Colloidal Oatmeal 1 applic 06/18/16 14:30 06/24/16 06:26 Aveeno Soap - TP 1 applic DAILY PRN Administration HYGEINE Diphenhydramine HCl 50 mg 06/23/16 16:52 06/29/16 21:24 Benadryl - PO 50 mg HSMR1 PRN Administration ANXIETY Diphenhydramine HCl 25 mg 06/26/16 14:18 06/29/16 06:20 Benadryl - PO 25 mg Q4H PRN Administration FOR ITCHING Eucalyptus/Menthol/Phenol/Sorbitol 1 each 06/18/16 14:29 Cepastat Lozenge - MM Q4H PRN SORE THROAT Guaifenesin 10 ml 06/18/16 14:29 Robitussin Dm - PO Q6H PRN COUGH Hydroxyzine Pamoate 50 mg 06/18/16 15:17 06/30/16 07:40 Vistaril - PO 50 mg Q4H PRN Administration ANXIETY Ibuprofen 400 mg 06/18/16 14:29 06/27/16 15:53 Motrin - PO 400 mg Q6H PRN Administration PAIN Lactic Acid 1 applic 06/18/16 14:31 06/28/16 21:26 Lac-Hydrin 12 TP 1 applic BID PRN Administration DRY SKIN Loperamide HCl 4 mg 06/18/16 14:29 Imodium - PO Q6H PRN DIARRHEA Magnesium Hydroxide 30 ml 06/18/16 14:29 Milk Of Magnesia - PO DAILY PRN CONSTIPATION Nicotine Polacrilex 2 mg 06/18/16 14:29 Nicorette Gum - BUC Q2H PRN NICOTINE REPLACEMENT RX Multivit/Folic Acid/Iron 1 tab 06/19/16 10:00 06/30/16 09:33 Vitamins (Sjr) - PO 1 tab DAILY NORIS Administration Pseudoephedrine/Triprolidine 1 combo 06/18/16 14:29 Actifed - PO TID PRN NASAL CONGESTION Quetiapine Fumarate 100 mg 06/18/16 22:00 06/29/16 21:23 Seroquel - PO 100 mg HS NORIS Administration Thiamine HCl 100 mg 06/18/16 22:00 06/29/16 21:23 Vitamin B1 - PO 100 mg HS NORIS Administration Current Side Effect: No Lab tests ordered: Yes Lab tests reviewed: Yes Provider note:: Patient has completed this program today. She has met her treatment goals and will continue to address her issues in outpatient program at [facility]. Told content writer that her participation in this program, she has learned how to stay clean.She responded well to Seroquel 100 mg po HS. Script for that medication is electronically transmitted to [facility] at [address] [place] [id number] Total face to face time:: 35 Mental Status Exam - Mental Status Exam Alert and Oriented to: Time, Place, Person Cognitive Function: Fair Patient Appearance: Well Groomed Mood: Hopeful, Euthymic Affect: Appropriate Patient Behavior: Cooperative Speech Pattern: Clear Voice Loudness: Normal Thought Process: Intact Thought Disorder: Not Present Hallucinations: Denies Suicidal Ideation: Denies Homicidal Ideation: Denies Insight/Judgement: Fair Sleep: Fair Appetite: Fair Muscle strength/Tone: Normal Gait/Station: Normal
== END 2016-06-30 10:24 | disposition home or self-care (01) | DRG 772 ==
LOC: YASAS 11:26 → Y3E 11:27
PROVIDERS: ADMIT Psychiatry & Neurology Psychiatry; ATTEND Psychiatry & Neurology Psychiatry
PROC: HZ42ZZZ Group Counseling for Substance Abuse Treatment, Cognitive-Behavioral (ICD-10-PCS; principal; 2016-06-30)
DX: F11.20 Opioid dependence, uncomplicated (principal); F10.230 Alcohol dependence with withdrawal, uncomplicated; F17.210 Nicotine dependence, cigarettes, uncomplicated; F19.24 Other psychoactive substance dependence with psychoactive substance-induced mood disorder
CPT/HCPCS: 93971-TC

== ENCOUNTER 2016-12-13 11:00 | Inpatient (IN) | payer OTHER ==
[2016-12-13 11:16] VITALS: BMI 26.7
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
[2016-12-13] MEDS ORDERED: ACETAMINOPHEN 325 MG TABLET (FP) PO PRN (11:42)
[2016-12-13] MEDS ORDERED: guaiFENesin/D-METHORPHAN HB 10 ML UNIT-DOSE CUPS PO PRN (11:42)
[2016-12-13] MEDS ORDERED: IBUPROFEN 400 MG TABLET (FP) PO PRN (11:42)
[2016-12-13] MEDS ORDERED: MAGNESIUM HYDROX 2400MG/30ML ORAL SUSPENSION 30 ML CUP PO PRN (11:42)
[2016-12-13] MEDS ORDERED: chlordiazePOXIDE HCL 25 MG CAPSULE PO PRN (11:42)
[2016-12-13] MEDS ORDERED: chlordiazePOXIDE HCL 25 MG CAPSULE PO ONE ×2 (11:42→12:30)
[2016-12-13] MEDS ORDERED: MAGNESIUM CITRATE 300 ML BOTTLE PO PRN (11:42)
[2016-12-13] MEDS ORDERED: P-EPHED 60MG/TRIPROLIDI 2.5MG TABLET PO PRN (11:42)
[2016-12-13] MEDS ORDERED: LOPERAMIDE HCL 2 MG CAPSULE PO PRN (11:42)
[2016-12-13] MEDS ORDERED: MENTHOL/PHENOL 1 EACH UD MM PRN (11:42)
[2016-12-13] MEDS ORDERED: MAG HYDROX/AL HYDROX/SIMETH 30 ML UNIT-DOSE CUP PO PRN (11:42)
[2016-12-13] MEDS ORDERED: METHADONE HCL 10 MG TABLET (FOR DETOX USE ONLY) PO ONE ×2 (11:49→23:00)
[2016-12-13] MEDS: BACITRACIN 0.9 GM PACKET TP SCH ×2 (13:39→22:14)
[2016-12-13] MEDS ORDERED: chlordiazePOXIDE HCL 25 MG CAPSULE PO SCH (17:00)
[2016-12-13] MEDS: chlordiazePOXIDE HCL 25 MG CAPSULE PO SCH ×2 (17:04→22:13)
[2016-12-13 17:18] LABS: URINE APPEARANCE CLEAR; URINE BILIRUBIN NEGATIVE (NEGATIVE); URINE BLOOD NEGATIVE (NEGATIVE); URINE COLOR YELLOW; URINE GLUCOSE (UA) NEGATIVE (NEGATIVE); URINE KETONE NEGATIVE (NEGATIVE); URINE LEUK ESTERASE NEGATIVE (NEGATIVE); URINE NITRITE NEGATIVE (NEGATIVE); URINE PROTEIN NEGATIVE (NEGATIVE); URINE UROBILINOGEN NEGATIVE mg/dL (0.2-1.0)
[2016-12-13] MEDS: chlordiazePOXIDE HCL 25 MG CAPSULE PO PRN (18:03)
[2016-12-13] MEDS: hydrOXYzine PAMOATE 50 MG CAPSULE (FP) PO PRN (18:03)
[2016-12-13] MEDS ORDERED: diphenhydrAMINE HCL 50 MG CAPSULE PO PRN (22:00)
[2016-12-13] MEDS: THIAMINE HCL 100 MG TABLET (FP) PO SCH (22:13)
[2016-12-14] MEDS: chlordiazePOXIDE HCL 25 MG CAPSULE PO SCH ×4 (07:01→22:41)
--- NOTE | 2016-12-14 08:46 | EKG ---
Test Reason : Blood Pressure : / mmHG Vent. Rate : 076 BPM Atrial Rate : 076 BPM P-R Int : 112 ms QRS Dur : 082 ms QT Int : 398 ms P-R-T Axes : 058 059 057 degrees QTc Int : 447 ms NORMAL SINUS RHYTHM NORMAL ECG Confirmed by MD VIGNESH, WADE ([id number]) on 12/14/2016 8:46:06 AM Referred By: Confirmed By:WADE MEDELLIN MD
--- NOTE | 2016-12-14 08:59 | PN ---
[facility] CIWA - CIWA Score Nausea/Vomitin Muscle Tremors: 3 Anxiety: 3 Agitation: 3 Paroxysmal Sweats: 1-Minimal Palms Moist Orientation: 0-Oriented Tacttile Disturbances: 1-Very Mild Itch/Numbness Auditory Disturbances: 1-Very Mild Visual Disturbances: 0-None Headache: 2-Mild CIWA-Ar Total Score: 17 BHS COWS - Scale Resting Pulse: 1= [place] 81-100 Sweatin= Chills/Flushing Restless Observation: 3= Extraneous Movement Pupil Size: 1= Pupils >than Normal Bone or Joint Aches: 2= Severe Diffuse Aches Runny Nose/ Eye Tearin= Runny Nose/Eyes GI Upset > 30mins: 3= Vomiting/Diarrhea Tremor Observation of Outstretched Hands: 2= Slight Tremor Visible Yawning Observation: 1= 1-2x During Session Anxiety or Irritability: 2=Irritable/Anxious Goose Flesh Skin: 0=Smooth Skin COWS Score: 18 [facility] Progress Note (SOAP) Subjective: ALERT,IRRITABLE,ANXIOUS,INTERRUPTED SLEEP,PAIN IN THE BODY AND BACK,TREMOR Objective: 12/14/16 08:58 Vital Signs Temperature 98.2 F 12/14/16 06:00 Pulse Rate 95 H 12/14/16 06:00 Respiratory Rate 18 12/14/16 06:00 Blood Pressure 125/80 12/14/16 06:00 O2 Sat by Pulse Oximetry (%) EKG NSR,NORMAL ECG Laboratory Last Values Urine Color Yellow 12/13/16 15:45 Urine Appearance Clear 12/13/16 15:45 Urine pH 6.0 (5.0-8.0) D 12/13/16 15:45 Ur Specific [place] 1.015 (1.005-1.025) 12/13/16 15:45 Urine Protein Negative (NEGATIVE) 12/13/16 15:45 Urine Glucose (UA) Negative (NEGATIVE) 12/13/16 15:45 Urine Ketones Negative (NEGATIVE) 12/13/16 15:45 Urine Blood Negative (NEGATIVE) 12/13/16 15:45 Urine Nitrite Negative (NEGATIVE) 12/13/16 15:45 Urine Bilirubin Negative (NEGATIVE) 12/13/16 15:45 Urine Urobilinogen Negative mg/dL (0.2-1.0) 12/13/16 15:45 LABS PENDING Assessment: 12/14/16 08:59 WITHDRAWAL SYMPTOM Plan: CONTINUE DETOX
[2016-12-14] MEDS ORDERED: METHADONE HCL 10 MG TABLET (FOR DETOX USE ONLY) PO SCH (10:00)
[2016-12-14 10:18] LABS: MCH 30.3 pg (25.7-33.7); MEAN CELL VOLUME 91.7 fl (80-96); MEAN PLT VOLUME 9.1 fl (7.5-11.1); PLATELET COUNT 162 K/MM3 (134-434); RDW 15.7 % (11.6-15.6); WHITE BLOOD COUNT 5.4 K/mm3 (4.0-10.0)
[2016-12-14] MEDS: BACITRACIN 0.9 GM PACKET TP SCH ×2 (10:22→22:44)
[2016-12-14] MEDS: PRENATAL VITAMINS W/ FOLIC ACID TABLET (FP) PO SCH (10:22)
[2016-12-14 10:29] LABS: ALBUMIN 3.2 g/dl (3.4-5.0); ALK PHOS 95 U/L (45-117); ANION GAP 6 (8-16); BILIRUBIN,TOTAL 0.6 mg/dL (0.2-1.0); CALCIUM 8.6 mg/dL (8.5-10.1); CO2 30 mmol/L (21-32); CREATININE 0.8 mg/dL (0.55-1.02); GLUCOSE,RANDOM 121 mg/dL (74-106); SGOT/AST 35 U/L (15-37); SGPT/ALT 40 U/L (12-78); TOT PROT 6.3 g/dl (6.4-8.2)
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
[2016-12-14] MEDS: CIPROFLOXACIN HCL 0.3% OPHTH 2.5ML BOTTLE OD SCH ×3 (15:51→22:44)
[2016-12-14] MEDS ORDERED: chlordiazePOXIDE HCL 25 MG CAPSULE PO SCH (17:00)
[2016-12-14] MEDS: THIAMINE HCL 100 MG TABLET (FP) PO SCH (22:44)
[2016-12-14] MEDS: ZOLPIDEM TARTRATE 10 MG TABLET (PARK CARE ONLY) PO PRN (22:50)
[2016-12-15] MEDS: chlordiazePOXIDE HCL 25 MG CAPSULE PO SCH ×2 (06:46→11:16)
[2016-12-15] MEDS: CIPROFLOXACIN HCL 0.3% OPHTH 2.5ML BOTTLE OD SCH ×5 (06:47→22:18)
[2016-12-15] MEDS ORDERED: CYCLOBENZAPRINE HCL 10 MG TABLET (FP) PO ONE (09:33)
[2016-12-15] MEDS ORDERED: CYCLOBENZAPRINE HCL 10 MG TABLET (FP) PO PRN (09:33)
--- NOTE | 2016-12-15 09:50 | PN ---
S CIWA - CIWA Score Nausea/Vomitin Muscle Tremors: 3 Anxiety: 3 Agitation: 3 Paroxysmal Sweats: 1-Minimal Palms Moist Orientation: 0-Oriented Tacttile Disturbances: 1-Very Mild Itch/Numbness Auditory Disturbances: 1-Very Mild Visual Disturbances: 1-Very Mild Sensitivity Headache: 2-Mild CIWA-Ar Total Score: 18 BHS COWS - Scale Resting Pulse: 0= [place] 80 or Below Sweatin= Chills/Flushing Restless Observation: 3= Extraneous Movement Pupil Size: 1= Pupils >than Normal Bone or Joint Aches: 2= Severe Diffuse Aches Runny Nose/ Eye Tearin= Nasal Congestion GI Upset > 30mins: 3= Vomiting/Diarrhea Tremor Observation of Outstretched Hands: 2= Slight Tremor Visible Yawning Observation: 1= 1-2x During Session Anxiety or Irritability: 2=Irritable/Anxious Goose Flesh Skin: 0=Smooth Skin COWS Score: 16 BHS Progress Note (SOAP) Subjective: ALERT,IRRITABLE,ANXIOUS,INTERRUPTED SLEEP,TREMOR,PAIN IN THE BODY AND BACK, ECCHYMOSIS OF EYEBROW Objective: 12/15/16 09:49 Vital Signs Temperature 97.9 F 12/15/16 06:34 Pulse Rate 61 12/15/16 06:34 Respiratory Rate 16 12/15/16 06:34 Blood Pressure 100/66 12/15/16 06:34 O2 Sat by Pulse Oximetry (%) Laboratory Last Values WBC 5.4 K/mm3 (4.0-10.0) 12/14/16 07:30 RBC 4.41 M/mm3 (3.60-5.2) 12/14/16 07:30 Hgb 13.4 GM/dL (10.7-15.3) 12/14/16 07:30 Hct 40.5 % (32.4-45.2) 12/14/16 07:30 MCV 91.7 fl (80-96) 12/14/16 07:30 MCH 30.3 pg (25.7-33.7) 12/14/16 07:30 MCHC 33.0 g/dl (32.0-36.0) 12/14/16 07:30 RDW 15.7 % (11.6-15.6) H D 12/14/16 07:30 Plt Count 162 K/MM3 (134-434) D 12/14/16 07:30 MPV 9.1 fl (7.5-11.1) 12/14/16 07:30 Sodium 139 mmol/L (136-145) 12/14/16 07:30 Potassium 3.7 mmol/L (3.5-5.1) 12/14/16 07:30 Chloride 103 mmol/L (98-107) 12/14/16 07:30 Carbon Dioxide 30 mmol/L (21-32) 12/14/16 07:30 Anion Gap 6 (8-16) L 12/14/16 07:30 BUN 11 mg/dL (7-18) 12/14/16 07:30 Creatinine 0.8 mg/dL (0.55-1.02) 12/14/16 07:30 Creat Clearance w eGFR > 60 (>60) 12/14/16 07:30 Random Glucose 121 mg/dL (74-106) H D 12/14/16 07:30 Calcium 8.6 mg/dL (8.5-10.1) 12/14/16 07:30 Total Bilirubin 0.6 mg/dL (0.2-1.0) D 12/14/16 07:30 AST 35 U/L (15-37) D 12/14/16 07:30 ALT 40 U/L (12-78) 12/14/16 07:30 Alkaline Phosphatase 95 U/L (45-117) 12/14/16 07:30 Total Protein 6.3 g/dl (6.4-8.2) L 12/14/16 07:30 Albumin 3.2 g/dl (3.4-5.0) L 12/14/16 07:30 Urine Color Yellow 12/13/16 15:45 Urine Appearance Clear 12/13/16 15:45 Urine pH 6.0 (5.0-8.0) D 12/13/16 15:45 Ur Specific [place] 1.015 (1.005-1.025) 12/13/16 15:45 Urine Protein Negative (NEGATIVE) 12/13/16 15:45 Urine Glucose (UA) Negative (NEGATIVE) 12/13/16 15:45 Urine Ketones Negative (NEGATIVE) 12/13/16 15:45 Urine Blood Negative (NEGATIVE) 12/13/16 15:45 Urine Nitrite Negative (NEGATIVE) 12/13/16 15:45 Urine Bilirubin Negative (NEGATIVE) 12/13/16 15:45 Urine Urobilinogen Negative mg/dL (0.2-1.0) 12/13/16 15:45 RPR Titer Nonreactive (NONREACTIVE) 12/14/16 07:30 Assessment: 12/15/16 09:50 WITHDRAWAL SYMPTOM Plan: CONTINUE DETOX,BGM 121,CONTINUE DETOX,FASTING GLUCOSE IN AM
[2016-12-15] MEDS: BACITRACIN 0.9 GM PACKET TP SCH ×2 (11:16→22:13)
[2016-12-15] MEDS: PRENATAL VITAMINS W/ FOLIC ACID TABLET (FP) PO SCH (11:16)
[2016-12-15] MEDS: METHADONE HCL 5 MG TABLET (FOR DETOX USE ONLY) PO SCH (11:17)
[2016-12-15] MEDS: cloNIDine HCL 0.1 MG TABLET PO SCH ×2 (11:24→22:17)
[2016-12-15] MEDS: chlordiazePOXIDE HCL 25 MG CAPSULE PO PRN (15:08)
[2016-12-15] MEDS ORDERED: chlordiazePOXIDE 5 MG CAPSULE PO SCH (17:00)
[2016-12-15] MEDS: chlordiazePOXIDE 5 MG CAPSULE PO SCH ×2 (17:55→22:14)
[2016-12-15] MEDS: THIAMINE HCL 100 MG TABLET (FP) PO SCH (22:14)
[2016-12-15] MEDS: ZOLPIDEM TARTRATE 10 MG TABLET (PARK CARE ONLY) PO PRN (22:16)
[2016-12-16] MEDS: chlordiazePOXIDE 5 MG CAPSULE PO SCH ×2 (06:44→10:29)
[2016-12-16] MEDS: CIPROFLOXACIN HCL 0.3% OPHTH 2.5ML BOTTLE OD SCH ×4 (06:44→22:21)
--- NOTE | 2016-12-16 09:41 | PN ---
BHS Progress Note (SOAP) Subjective: nausea, sweats, interrupted sleep, anxiety, tremors Objective: 12/16/16 09:43 Vital Signs - 8 hr 12/16/16 12/16/16 03:30 06:38 Temperature 96.3 F L Pulse Rate 64 Respiratory 18 16 Rate Blood Pressure 135/77 Laboratory Tests 12/13/16 12/14/16 12/14/16 15:45 07:30 07:30 WBC 5.4 RBC 4.41 Hgb 13.4 Hct 40.5 MCV 91.7 MCH 30.3 MCHC 33.0 RDW 15.7 H D Plt Count 162 D MPV 9.1 Sodium 139 Potassium 3.7 Chloride 103 Carbon Dioxide 30 Anion Gap 6 L BUN 11 Creatinine 0.8 Creat Clearance w eGFR > 60 Random Glucose 121 H D Calcium 8.6 Total Bilirubin 0.6 D AST 35 D ALT 40 Alkaline Phosphatase 95 Total Protein 6.3 L Albumin 3.2 L Urine Color Yellow Urine Appearance Clear Urine pH 6.0 D Ur Specific Early 1.015 Urine Protein Negative Urine Glucose (UA) Negative Urine Ketones Negative Urine Blood Negative Urine Nitrite Negative Urine Bilirubin Negative Urine Urobilinogen Negative RPR Titer 12/14/16 07:30 WBC RBC Hgb Hct MCV MCH MCHC RDW Plt Count MPV Sodium Potassium Chloride Carbon Dioxide Anion Gap BUN Creatinine Creat Clearance w eGFR Random Glucose Calcium Total Bilirubin AST ALT Alkaline Phosphatase Total Protein Albumin Urine Color Urine Appearance Urine pH Ur Specific Early Urine Protein Urine Glucose (UA) Urine Ketones Urine Blood Urine Nitrite Urine Bilirubin Urine Urobilinogen RPR Titer Nonreactive Assessment: 12/16/16 09:44 withdrawal sx, hypoalbuminemia/malnutrition 2/2 substance use Plan: cont detox, fluids, encourage ambulation.
[2016-12-16] MEDS: METHADONE HCL 5 MG TABLET (FOR DETOX USE ONLY) PO SCH (10:29)
[2016-12-16] MEDS: cloNIDine HCL 0.1 MG TABLET PO SCH ×2 (10:30→22:21)
[2016-12-16] MEDS: BACITRACIN 0.9 GM PACKET TP SCH ×2 (10:30→22:20)
[2016-12-16] MEDS: PRENATAL VITAMINS W/ FOLIC ACID TABLET (FP) PO SCH (10:30)
[2016-12-16] MEDS ORDERED: chlordiazePOXIDE HCL 10 MG CAPSULE PO SCH (17:00)
[2016-12-16] MEDS: chlordiazePOXIDE HCL 10 MG CAPSULE PO SCH ×2 (17:42→22:19)
[2016-12-16] MEDS: ZOLPIDEM TARTRATE 10 MG TABLET (PARK CARE ONLY) PO PRN (22:19)
[2016-12-16] MEDS: THIAMINE HCL 100 MG TABLET (FP) PO SCH (22:19)
[2016-12-17] MEDS: chlordiazePOXIDE HCL 10 MG CAPSULE PO SCH ×2 (05:34→10:35)
[2016-12-17] MEDS: CIPROFLOXACIN HCL 0.3% OPHTH 2.5ML BOTTLE OD SCH ×6 (06:02→22:09)
--- NOTE | 2016-12-17 08:24 | PN ---
BHS Progress Note (SOAP) Subjective: ALERT,IRRITABLE,ANXIOUS,INTERRUPTED SLEEP,PAIN IN THE BODY Objective: 12/17/16 08:23 Vital Signs Temperature 98.1 F 12/17/16 06:15 Pulse Rate 69 12/17/16 06:15 Respiratory Rate 16 12/17/16 06:15 Blood Pressure 139/74 12/17/16 06:15 O2 Sat by Pulse Oximetry (%) 12/17/16 08:24 Assessment: 12/17/16 08:24 WITHDRAWAL SYMPTOM Plan: CONTINUE DETOX,DISCHARGE IN AM
[2016-12-17] MEDS ORDERED: METHADONE HCL 10 MG TABLET (FOR DETOX USE ONLY) PO SCH (10:00)
[2016-12-17] MEDS: cloNIDine HCL 0.1 MG TABLET PO SCH ×2 (10:35→22:10)
[2016-12-17] MEDS: PRENATAL VITAMINS W/ FOLIC ACID TABLET (FP) PO SCH (10:35)
[2016-12-17] MEDS: BACITRACIN 0.9 GM PACKET TP SCH ×2 (10:35→22:10)
--- NOTE | 2016-12-17 10:43 | PN ---
BHS Progress Note (SOAP) Subjective: ALERT,IRRITABLE,ANXIOUS,INTERRUPTED SLEEP,PAIN IN THE BACK Objective: 12/17/16 10:40 Vital Signs Temperature 98.9 F 12/17/16 10:33 Pulse Rate 80 12/17/16 10:33 Respiratory Rate 20 12/17/16 10:33 Blood Pressure 113/71 12/17/16 10:33 O2 Sat by Pulse Oximetry (%) WITHDRAWAL SYMPTOM Assessment: WITHDRAWAL SYMPTOM Plan: CONTINUE DETOX
[2016-12-17] MEDS: THIAMINE HCL 100 MG TABLET (FP) PO SCH (22:09)
[2016-12-17] MEDS: ZOLPIDEM TARTRATE 10 MG TABLET (PARK CARE ONLY) PO PRN (22:09)
[2016-12-17 22:30] VITALS: BP 118/63; PULSE 85; TEMP 97.7
[2016-12-18] MEDS ORDERED: METHADONE HCL 5 MG TABLET (FOR DETOX USE ONLY) PO SCH (06:00)
[2016-12-18] MEDS: CIPROFLOXACIN HCL 0.3% OPHTH 2.5ML BOTTLE OD SCH (06:58)
[2016-12-18] MEDS: hydrOXYzine PAMOATE 50 MG CAPSULE (FP) PO PRN (06:59)
--- NOTE | 2016-12-18 08:37 | DS ---
[facility] Detox Discharge Summary Admission Date: 12/13/16 Discharge Date: 12/18/16 - History Present History: Alcohol Dependence, Opioid Dependence Additional Comments: FOLLOW UP WITH AFTER CARE PROGRAM ARRANGEMENT Pertinent Past History: NICOTINE DEPENDENCE ABRASION OF RIGHT ORBIT SUBCONJUNCTIVAL HEMORRHAGE OF RIGHT EYE - Physical Exam Results Vital Signs: Vital Signs Temperature 97.7 F 12/17/16 22:30 Pulse Rate 85 12/17/16 22:30 Respiratory Rate 18 12/18/16 00:30 Blood Pressure 118/63 12/17/16 22:30 O2 Sat by Pulse Oximetry (%) Pertinent Admission Physical Exam Findings: WITHDRAWAL SYMPTOM - Treatment Hospital Course: Detox Protocol Followed, Detoxed Safely, Responded well, Discharged Condition Good Patient has Accepted a Rehab Referral to: [facility] - Medication Discharge Medications: Ambulatory Orders Fluoxetine HCl [Prozac -] 10 mg PO DAILY #30 capsule 06/14/16 Quetiapine Fumarate [Seroquel] 100 mg PO HS #30 tablet 06/14/16 - AMA Did Patient Leave Against Medical Advice: No
[2016-12-18] MEDS: PRENATAL VITAMINS W/ FOLIC ACID TABLET (FP) PO SCH (10:17)
[2016-12-18] MEDS: BACITRACIN 0.9 GM PACKET TP SCH (10:17)
[2016-12-18] MEDS: cloNIDine HCL 0.1 MG TABLET PO SCH (10:17)
== END 2016-12-18 11:34 | disposition other institution (70) | DRG 773 ==
LOC: YASAS 11:00 → Y6N 12:21
PROVIDERS: ADMIT Internal Medicine; ATTEND Internal Medicine
PROC: HZ2ZZZZ Detoxification Services for Substance Abuse Treatment (ICD-10-PCS; principal; 2016-12-13)
DX: F11.23 Opioid dependence with withdrawal (principal); F10.230 Alcohol dependence with withdrawal, uncomplicated; F17.210 Nicotine dependence, cigarettes, uncomplicated; F19.24 Other psychoactive substance dependence with psychoactive substance-induced mood disorder; M54.5 Low back pain; G89.29 Other chronic pain; R76.11 Nonspecific reaction to tuberculin skin test without active tuberculosis; S00.211D Abrasion of right eyelid and periocular area, subsequent encounter; E88.09 Other disorders of plasma-protein metabolism, not elsewhere classified; E46 Unspecified protein-calorie malnutrition; Z68.26 Body mass index [BMI] 26.0-26.9, adult; Z91.018 Allergy to other foods; X58.XXXD Exposure to other specified factors, subsequent encounter; H11.31 Conjunctival hemorrhage, right eye
CPT/HCPCS: 36415; 80053; 81003; 85027; 86593; 93005; 93010

== ENCOUNTER 2016-12-18 12:09 | Inpatient (IN) | payer OTHER ==
[2016-12-18 12:43] VITALS: BMI 29.5
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
[2016-12-18] MEDS ORDERED: P-EPHED 60MG/TRIPROLIDI 2.5MG TABLET PO PRN (13:37)
[2016-12-18] MEDS ORDERED: MENTHOL/PHENOL 1 EACH UD MM PRN (13:37)
[2016-12-18] MEDS ORDERED: MAGNESIUM CITRATE 300 ML BOTTLE PO PRN (13:37)
[2016-12-18] MEDS ORDERED: MAG HYDROX/AL HYDROX/SIMETH 30 ML UNIT-DOSE CUP PO PRN (13:37)
[2016-12-18] MEDS ORDERED: guaiFENesin/D-METHORPHAN HB 10 ML UNIT-DOSE CUPS PO PRN (13:37)
[2016-12-18] MEDS ORDERED: IBUPROFEN 400 MG TABLET (FP) PO PRN (13:37)
[2016-12-18] MEDS ORDERED: MAGNESIUM HYDROX 2400MG/30ML ORAL SUSPENSION 30 ML CUP PO PRN (13:37)
[2016-12-18] MEDS ORDERED: NICOTINE POLACRILEX 2 MG GUM BUC PRN (13:37)
[2016-12-18] MEDS ORDERED: LOPERAMIDE HCL 2 MG CAPSULE PO PRN (13:37)
--- NOTE | 2016-12-18 13:39 | HP ---
[facility] Rehab Assess/Revision - Admission History Admitted to Rehab from: [facility] Date of Admission to Rehab: 12/18/2016 - Vital signs Vital Signs: Vital Signs Period Temp Pulse Resp BP Sys/Barton Pulse Ox Last 24 Hr 98.4 F 75 19 123/74 - Findings Detox History & Physical reviewed: Yes Concur with findings: Yes Inpatient Rehab Admission - Initial Determination Are CD services needed?: Yes Free of communicable disease: Yes Not in need of hospitalization: Yes - Rehab Admission Criteria Comorbidities: Yes Patient is meeting Inpatient Rehab admission criteria:: Yes
[2016-12-18] MEDS: hydrOXYzine PAMOATE 50 MG CAPSULE (FP) PO PRN (15:15)
[2016-12-18] MEDS: THIAMINE HCL 100 MG TABLET (FP) PO SCH (22:14)
[2016-12-19] MEDS: hydrOXYzine PAMOATE 50 MG CAPSULE (FP) PO PRN ×2 (06:30→14:45)
[2016-12-19] MEDS: NICOTINE 14 MG/24 HOURS TOPICAL PATCH TD SCH (10:22)
[2016-12-19] MEDS: PRENATAL VITAMINS W/ FOLIC ACID TABLET (FP) PO SCH (10:22)
[2016-12-19] MEDS ORDERED: cloNIDine HCL 0.1 MG TABLET PO ONE (15:54)
[2016-12-19] MEDS: PANTOPRAZOLE 40 MG TABLET (FP) PO SCH (16:02)
[2016-12-19] MEDS: BACITRACIN 0.9 GM PACKET TP SCH (16:59)
[2016-12-19] MEDS: THIAMINE HCL 100 MG TABLET (FP) PO SCH (22:57)
[2016-12-19] MEDS: NAPROXEN 500 MG TABLET (FP) PO SCH (22:57)
[2016-12-19] MEDS: cloNIDine HCL 0.1 MG TABLET PO SCH (22:57)
[2016-12-19] MEDS: HYDROCORTISONE 0.5% TOPICAL OINTMENT TUBE TP SCH (22:57)
[2016-12-20] MEDS: hydrOXYzine PAMOATE 50 MG CAPSULE (FP) PO PRN ×3 (07:20→17:59)
[2016-12-20] MEDS: PANTOPRAZOLE 40 MG TABLET (FP) PO SCH (10:33)
[2016-12-20] MEDS: BACITRACIN 0.9 GM PACKET TP SCH (10:33)
[2016-12-20] MEDS: NICOTINE 14 MG/24 HOURS TOPICAL PATCH TD SCH (10:33)
[2016-12-20] MEDS: NAPROXEN 500 MG TABLET (FP) PO SCH ×2 (10:33→21:31)
[2016-12-20] MEDS: PRENATAL VITAMINS W/ FOLIC ACID TABLET (FP) PO SCH (10:33)
[2016-12-20] MEDS: cloNIDine HCL 0.1 MG TABLET PO SCH ×2 (10:33→21:31)
[2016-12-20] MEDS: HYDROCORTISONE 0.5% TOPICAL OINTMENT TUBE TP SCH ×2 (10:35→21:31)
[2016-12-20] MEDS: THIAMINE HCL 100 MG TABLET (FP) PO SCH (21:31)
[2016-12-21] MEDS: PANTOPRAZOLE 40 MG TABLET (FP) PO SCH (09:57)
[2016-12-21] MEDS: NAPROXEN 500 MG TABLET (FP) PO SCH ×2 (09:57→21:51)
[2016-12-21] MEDS: cloNIDine HCL 0.1 MG TABLET PO SCH ×2 (09:57→21:48)
[2016-12-21] MEDS: PRENATAL VITAMINS W/ FOLIC ACID TABLET (FP) PO SCH (09:57)
[2016-12-21] MEDS: BACITRACIN 0.9 GM PACKET TP SCH (09:57)
[2016-12-21] MEDS: NICOTINE 14 MG/24 HOURS TOPICAL PATCH TD SCH (09:58)
[2016-12-21] MEDS: HYDROCORTISONE 0.5% TOPICAL OINTMENT TUBE TP SCH ×2 (09:59→21:48)
[2016-12-21] MEDS: hydrOXYzine PAMOATE 50 MG CAPSULE (FP) PO PRN ×2 (12:42→21:48)
[2016-12-21] MEDS ORDERED: SUVOREXANT 10 MG TABLET PO PRN (15:25)
[2016-12-21] MEDS: THIAMINE HCL 100 MG TABLET (FP) PO SCH (21:48)
[2016-12-22] MEDS: PRENATAL VITAMINS W/ FOLIC ACID TABLET (FP) PO SCH (09:53)
[2016-12-22] MEDS: BACITRACIN 0.9 GM PACKET TP SCH (09:53)
[2016-12-22] MEDS: PANTOPRAZOLE 40 MG TABLET (FP) PO SCH (09:53)
[2016-12-22] MEDS: NAPROXEN 500 MG TABLET (FP) PO SCH (09:53)
[2016-12-22] MEDS: HYDROCORTISONE 0.5% TOPICAL OINTMENT TUBE TP SCH ×2 (09:53→21:16)
[2016-12-22] MEDS: NICOTINE 14 MG/24 HOURS TOPICAL PATCH TD SCH (09:53)
[2016-12-22] MEDS: cloNIDine HCL 0.1 MG TABLET PO SCH ×2 (09:53→21:15)
[2016-12-22] MEDS: hydrOXYzine PAMOATE 50 MG CAPSULE (FP) PO PRN ×3 (09:54→21:15)
[2016-12-22] MEDS ORDERED: SUMAtriptan SUCCINATE 25 MG TABLET PO ONE (13:59)
[2016-12-22] MEDS: THIAMINE HCL 100 MG TABLET (FP) PO SCH (21:15)
[2016-12-23] MEDS: hydrOXYzine PAMOATE 50 MG CAPSULE (FP) PO PRN ×2 (06:27→15:09)
[2016-12-23] MEDS: cloNIDine HCL 0.1 MG TABLET PO SCH ×2 (10:10→21:39)
[2016-12-23] MEDS: PRENATAL VITAMINS W/ FOLIC ACID TABLET (FP) PO SCH (10:10)
[2016-12-23] MEDS: PANTOPRAZOLE 40 MG TABLET (FP) PO SCH (10:10)
[2016-12-23] MEDS: HYDROCORTISONE 0.5% TOPICAL OINTMENT TUBE TP SCH ×2 (10:11→21:39)
[2016-12-23] MEDS: BACITRACIN 0.9 GM PACKET TP SCH (10:11)
[2016-12-23] MEDS: NICOTINE 14 MG/24 HOURS TOPICAL PATCH TD SCH (10:12)
[2016-12-23] MEDS: GABAPENTIN 100 MG CAPSULE (FP) PO SCH ×2 (15:52→21:39)
[2016-12-23] MEDS: AMITRIPTYLINE HCL 25 MG TABLET (FP) PO SCH (21:39)
[2016-12-23] MEDS: THIAMINE HCL 100 MG TABLET (FP) PO SCH (21:39)
[2016-12-24] MEDS: GABAPENTIN 100 MG CAPSULE (FP) PO SCH ×3 (06:43→21:42)
[2016-12-24] MEDS: PRENATAL VITAMINS W/ FOLIC ACID TABLET (FP) PO SCH (09:50)
[2016-12-24] MEDS: cloNIDine HCL 0.1 MG TABLET PO SCH ×2 (09:50→21:42)
[2016-12-24] MEDS: hydrOXYzine PAMOATE 50 MG CAPSULE (FP) PO PRN ×3 (09:50→21:42)
[2016-12-24] MEDS: PANTOPRAZOLE 40 MG TABLET (FP) PO SCH (09:51)
[2016-12-24] MEDS: BACITRACIN 0.9 GM PACKET TP SCH (09:51)
[2016-12-24] MEDS: HYDROCORTISONE 0.5% TOPICAL OINTMENT TUBE TP SCH ×2 (09:52→21:42)
[2016-12-24] MEDS: NICOTINE 14 MG/24 HOURS TOPICAL PATCH TD SCH (09:52)
[2016-12-24] MEDS: ACETAMINOPHEN 325 MG TABLET (FP) PO PRN (18:17)
[2016-12-24] MEDS: THIAMINE HCL 100 MG TABLET (FP) PO SCH (21:41)
[2016-12-24] MEDS: AMITRIPTYLINE HCL 25 MG TABLET (FP) PO SCH (21:42)
[2016-12-24] MEDS ORDERED: SUVOREXANT 10 MG TABLET PO PRN (22:00)
[2016-12-25] MEDS: GABAPENTIN 100 MG CAPSULE (FP) PO SCH ×3 (05:57→22:12)
[2016-12-25] MEDS: PRENATAL VITAMINS W/ FOLIC ACID TABLET (FP) PO SCH (10:28)
[2016-12-25] MEDS: PANTOPRAZOLE 40 MG TABLET (FP) PO SCH (10:29)
[2016-12-25] MEDS: cloNIDine HCL 0.1 MG TABLET PO SCH ×2 (10:29→22:12)
[2016-12-25] MEDS: BACITRACIN 0.9 GM PACKET TP SCH (10:29)
[2016-12-25] MEDS: hydrOXYzine PAMOATE 50 MG CAPSULE (FP) PO PRN (10:30)
[2016-12-25] MEDS: NICOTINE 14 MG/24 HOURS TOPICAL PATCH TD SCH (10:31)
[2016-12-25] MEDS: HYDROCORTISONE 0.5% TOPICAL OINTMENT TUBE TP SCH ×2 (10:31→22:11)
[2016-12-25] MEDS: COLLOIDAL OATMEAL 1 BAR EACH TP PRN (13:10)
[2016-12-25] MEDS: THIAMINE HCL 100 MG TABLET (FP) PO SCH (22:11)
[2016-12-25] MEDS: AMITRIPTYLINE HCL 25 MG TABLET (FP) PO SCH (22:12)
[2016-12-26] MEDS: GABAPENTIN 100 MG CAPSULE (FP) PO SCH ×3 (06:33→21:44)
[2016-12-26] MEDS: PRENATAL VITAMINS W/ FOLIC ACID TABLET (FP) PO SCH (10:01)
[2016-12-26] MEDS: HYDROCORTISONE 0.5% TOPICAL OINTMENT TUBE TP SCH ×2 (10:01→21:42)
[2016-12-26] MEDS: cloNIDine HCL 0.1 MG TABLET PO SCH ×2 (10:01→21:43)
[2016-12-26] MEDS: PANTOPRAZOLE 40 MG TABLET (FP) PO SCH (10:01)
[2016-12-26] MEDS: BACITRACIN 0.9 GM PACKET TP SCH (10:01)
[2016-12-26] MEDS: hydrOXYzine PAMOATE 50 MG CAPSULE (FP) PO PRN ×2 (10:01→14:22)
[2016-12-26] MEDS: NICOTINE 14 MG/24 HOURS TOPICAL PATCH TD SCH (10:02)
[2016-12-26] MEDS: AMITRIPTYLINE HCL 25 MG TABLET (FP) PO SCH (21:43)
[2016-12-26] MEDS: THIAMINE HCL 100 MG TABLET (FP) PO SCH (21:43)
[2016-12-27] MEDS: GABAPENTIN 100 MG CAPSULE (FP) PO SCH ×3 (06:23→21:17)
[2016-12-27] MEDS: ACETAMINOPHEN 325 MG TABLET (FP) PO PRN (09:06)
[2016-12-27] MEDS: BACITRACIN 0.9 GM PACKET TP SCH (09:06)
[2016-12-27] MEDS: cloNIDine HCL 0.1 MG TABLET PO SCH ×2 (09:07→21:17)
[2016-12-27] MEDS: PRENATAL VITAMINS W/ FOLIC ACID TABLET (FP) PO SCH (09:07)
[2016-12-27] MEDS: HYDROCORTISONE 0.5% TOPICAL OINTMENT TUBE TP SCH ×2 (09:07→21:19)
[2016-12-27] MEDS: PANTOPRAZOLE 40 MG TABLET (FP) PO SCH (09:07)
[2016-12-27] MEDS: NICOTINE 14 MG/24 HOURS TOPICAL PATCH TD SCH (09:07)
[2016-12-27] MEDS: hydrOXYzine PAMOATE 50 MG CAPSULE (FP) PO PRN ×2 (09:08→14:01)
[2016-12-27] MEDS: THIAMINE HCL 100 MG TABLET (FP) PO SCH (21:17)
[2016-12-27] MEDS: AMITRIPTYLINE HCL 25 MG TABLET (FP) PO SCH (21:18)
[2016-12-28] MEDS: GABAPENTIN 100 MG CAPSULE (FP) PO SCH ×3 (06:17→21:54)
[2016-12-28] MEDS ORDERED: SUVOREXANT 10 MG TABLET PO PRN (07:53)
[2016-12-28] MEDS: BACITRACIN 0.9 GM PACKET TP SCH (09:48)
[2016-12-28] MEDS: PRENATAL VITAMINS W/ FOLIC ACID TABLET (FP) PO SCH (09:49)
[2016-12-28] MEDS: PANTOPRAZOLE 40 MG TABLET (FP) PO SCH (09:49)
[2016-12-28] MEDS: NICOTINE 14 MG/24 HOURS TOPICAL PATCH TD SCH (09:49)
[2016-12-28] MEDS: HYDROCORTISONE 0.5% TOPICAL OINTMENT TUBE TP SCH ×2 (09:49→21:55)
[2016-12-28] MEDS: cloNIDine HCL 0.1 MG TABLET PO SCH ×2 (09:49→21:54)
[2016-12-28] MEDS: hydrOXYzine PAMOATE 50 MG CAPSULE (FP) PO PRN ×3 (09:50→21:57)
[2016-12-28] MEDS: AMITRIPTYLINE HCL 25 MG TABLET (FP) PO SCH (21:54)
[2016-12-28] MEDS: THIAMINE HCL 100 MG TABLET (FP) PO SCH (21:54)
[2016-12-29] MEDS: GABAPENTIN 100 MG CAPSULE (FP) PO SCH ×3 (06:37→21:18)
[2016-12-29] MEDS: PRENATAL VITAMINS W/ FOLIC ACID TABLET (FP) PO SCH (09:59)
[2016-12-29] MEDS: HYDROCORTISONE 0.5% TOPICAL OINTMENT TUBE TP SCH ×2 (09:59→21:18)
[2016-12-29] MEDS: BACITRACIN 0.9 GM PACKET TP SCH (09:59)
[2016-12-29] MEDS: NICOTINE 14 MG/24 HOURS TOPICAL PATCH TD SCH (09:59)
[2016-12-29] MEDS: cloNIDine HCL 0.1 MG TABLET PO SCH ×2 (09:59→21:18)
[2016-12-29] MEDS: PANTOPRAZOLE 40 MG TABLET (FP) PO SCH (09:59)
[2016-12-29] MEDS: hydrOXYzine PAMOATE 50 MG CAPSULE (FP) PO PRN (10:01)
[2016-12-29] MEDS: THIAMINE HCL 100 MG TABLET (FP) PO SCH (21:18)
[2016-12-29] MEDS: AMITRIPTYLINE HCL 25 MG TABLET (FP) PO SCH (21:18)
[2016-12-29] MEDS: diphenhydrAMINE HCL 50 MG CAPSULE PO PRN (21:26)
[2016-12-30] MEDS: ACETAMINOPHEN 325 MG TABLET (FP) PO PRN (06:17)
[2016-12-30] MEDS: GABAPENTIN 100 MG CAPSULE (FP) PO SCH (06:18)
[2016-12-30] MEDS: hydrOXYzine PAMOATE 50 MG CAPSULE (FP) PO PRN ×2 (06:19→10:11)
[2016-12-30] MEDS: NICOTINE 14 MG/24 HOURS TOPICAL PATCH TD SCH (10:10)
[2016-12-30] MEDS: HYDROCORTISONE 0.5% TOPICAL OINTMENT TUBE TP SCH ×2 (10:10→21:09)
[2016-12-30] MEDS: PANTOPRAZOLE 40 MG TABLET (FP) PO SCH (10:10)
[2016-12-30] MEDS: PRENATAL VITAMINS W/ FOLIC ACID TABLET (FP) PO SCH (10:10)
[2016-12-30] MEDS: cloNIDine HCL 0.1 MG TABLET PO SCH ×3 (10:10→21:08)
[2016-12-30] MEDS: BACITRACIN 0.9 GM PACKET TP SCH (10:10)
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
[2016-12-30] MEDS: GABAPENTIN 300 MG CAPSULE (FP) PO SCH ×2 (13:39→21:08)
[2016-12-30] MEDS: diphenhydrAMINE HCL 50 MG CAPSULE PO PRN (21:09)
[2016-12-30] MEDS: THIAMINE HCL 100 MG TABLET (FP) PO SCH (21:09)
[2016-12-30] MEDS ORDERED: AMITRIPTYLINE HCL 25 MG TABLET (FP) PO SCH (22:00)
[2016-12-31] MEDS: GABAPENTIN 300 MG CAPSULE (FP) PO SCH ×3 (05:59→21:41)
[2016-12-31] MEDS: cloNIDine HCL 0.1 MG TABLET PO SCH ×3 (05:59→21:40)
--- NOTE | 2016-12-31 07:18 | PN ---
Psychiatric Progress Note Vital Signs: Vital Signs Period Temp Pulse Resp BP Sys/Barton Pulse Ox Last 24 Hr 97.8 F 87-96 18-18 116-132/75-91 Date of Session: 12/31/16 Chief Complaint:: Discharge Note HPI: Patient addressing Alcohol and Opoid Dependence comorbid with Nicotine Dependence and Substance-Induced Mood Disorder ROS: Subconjunctival hemorrhage right eye, chronic low back pain, +PPD Current Medications: Active Medications Generic Name Dose Route Start Last Admin Trade Name Freq PRN Reason Stop Dose Admin Acetaminophen 650 mg 12/18/16 13:37 12/30/16 06:17 Tylenol - PO 650 mg Q4H PRN Administration FEVER OR PAIN Al Hydroxide/Mg Hydroxide 30 ml 12/18/16 13:37 Mylanta Oral Suspension - PO Q6H PRN DYSPEPSIA Amitriptyline HCl 50 mg 12/30/16 22:00 12/30/16 21:09 Elavil - PO 50 mg HS NORIS Administration Bacitracin 0.9 gm 12/19/16 16:00 12/30/16 10:10 Bacitracin - TP 0.9 gm DAILY NORIS Administration Clonidine 0.1 mg 12/30/16 14:00 12/31/16 05:59 Catapres - PO 0.1 mg TID NORIS Administration Colloidal Oatmeal 1 applic 12/24/16 15:59 12/25/16 13:10 Aveeno Soap - TP 1 bar DAILY PRN Administration HYGEINE Diphenhydramine HCl 50 mg 12/18/16 13:37 12/30/16 21:09 Benadryl - PO 50 mg HSMR1 PRN Administration FOR ITCHING Eucalyptus/Menthol/Phenol/Sorbitol 1 each 12/18/16 13:37 Cepastat Lozenge - MM Q4H PRN SORE THROAT Gabapentin 300 mg 12/30/16 14:00 12/31/16 05:59 Neurontin - PO 300 mg TID NORIS Administration Guaifenesin 10 ml 12/18/16 13:37 Robitussin Dm - PO Q6H PRN COUGH Hydrocortisone 1 applic 12/19/16 22:00 12/30/16 21:09 Hytone 0.5% Ointment - TP 1 applic BID NORIS Administration Hydroxyzine Pamoate 50 mg 12/18/16 13:37 12/30/16 10:11 Vistaril - PO 50 mg Q4H PRN Administration AGITATION Loperamide HCl 4 mg 12/18/16 13:37 Imodium - PO Q6H PRN DIARRHEA Magnesium Hydroxide 30 ml 12/18/16 13:37 Milk Of Magnesia - PO DAILY PRN CONSTIPATION Nicotine 14 mg 12/19/16 10:00 12/30/16 10:10 Nicoderm Patch - TD Not Given DAILY NORIS Nicotine Polacrilex 2 mg 12/18/16 13:37 Nicorette Gum - BUC Q2H PRN NICOTINE REPLACEMENT RX Pantoprazole Sodium 40 mg 12/19/16 16:00 12/30/16 10:10 Protonix - PO 40 mg DAILY NORIS Administration Multivit/Folic Acid/Iron 1 tab 12/19/16 10:00 12/30/16 10:10 Vitamins (Sjr) - PO 1 tab DAILY NORIS Administration Pseudoephedrine/Triprolidine 1 combo 12/18/16 13:37 Actifed - PO TID PRN NASAL CONGESTION Thiamine HCl 100 mg 12/18/16 22:00 12/30/16 21:09 Vitamin B1 - PO 100 mg HS NORIS Administration Current Side Effect: No Lab tests ordered: Yes Lab tests reviewed: Yes Provider note:: Patient will complete this program on 01/01/17. She has met her treatment goals and will continue to address her issues in. She is stable for discharge on 01/01/17 Total face to face time:: 35 Mental Status Exam - Mental Status Exam Alert and Oriented to: Time, Place, Person Cognitive Function: Fair Patient Appearance: Well Groomed Mood: Hopeful, Euthymic Affect: Appropriate Patient Behavior: Cooperative Speech Pattern: Clear Voice Loudness: Normal Thought Process: Intact, Goal Oriented Thought Disorder: Not Present Hallucinations: Denies Suicidal Ideation: Denies Homicidal Ideation: Denies Insight/Judgement: Fair Sleep: Fair Appetite: Good Muscle strength/Tone: Normal Gait/Station: Normal Psychiatric Treatment Plan - Problem List (1) Alcohol dependence Current Visit: Yes (2) Opioid dependence Current Visit: Yes (3) Nicotine dependence Current Visit: No Qualifiers: Nicotine product type: cigarettes (4) Substance induced mood disorder Current Visit: No (5) Abrasion of right orbit Current Visit: No Qualifiers: Encounter type: subsequent encounter Qualified Code(s): S00.211D - Abrasion of right eyelid and periocular area, subsequent encounter; S00.211D - Abrasion of right eyelid and periocular area, subsequent encounter Comment: evaluated at [facility] ED yesterday per patient (6) Subconjunctival hemorrhage of right eye Current Visit: No (7) Chronic low back pain Current Visit: No (8) PPD positive Current Visit: No Comment: not treated but CXR negative 06/16/16 Initial treatment plan: Patient will be discharged tomorro and referred to
[2016-12-31] MEDS: BACITRACIN 0.9 GM PACKET TP SCH (10:10)
[2016-12-31] MEDS: PANTOPRAZOLE 40 MG TABLET (FP) PO SCH (10:10)
[2016-12-31] MEDS: HYDROCORTISONE 0.5% TOPICAL OINTMENT TUBE TP SCH ×2 (10:10→21:42)
[2016-12-31] MEDS: PRENATAL VITAMINS W/ FOLIC ACID TABLET (FP) PO SCH (10:10)
[2016-12-31] MEDS: NICOTINE 14 MG/24 HOURS TOPICAL PATCH TD SCH (10:11)
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
[2016-12-31] MEDS: COLLOIDAL OATMEAL 1 BAR EACH TP PRN (21:40)
[2016-12-31] MEDS: THIAMINE HCL 100 MG TABLET (FP) PO SCH (21:40)
[2016-12-31] MEDS ORDERED: AMITRIPTYLINE HCL 25 MG TABLET (FP) PO SCH (22:00)
[2017-01-01 07:05] VITALS: BP 142/94; PULSE 94; TEMP 98.6
[2017-01-01] MEDS: GABAPENTIN 300 MG CAPSULE (FP) PO SCH (07:10)
[2017-01-01] MEDS: cloNIDine HCL 0.1 MG TABLET PO SCH (07:12)
== END 2017-01-01 09:45 | disposition home or self-care (01) | DRG 772 ==
LOC: YASAS 12:09 → Y3W 12:10
PROVIDERS: ADMIT Psychiatry & Neurology Psychiatry; ATTEND Psychiatry & Neurology Psychiatry
PROC: HZ42ZZZ Group Counseling for Substance Abuse Treatment, Cognitive-Behavioral (ICD-10-PCS; principal; 2016-12-18)
DX: F11.20 Opioid dependence, uncomplicated (principal); F10.20 Alcohol dependence, uncomplicated; F17.210 Nicotine dependence, cigarettes, uncomplicated; F19.24 Other psychoactive substance dependence with psychoactive substance-induced mood disorder; R51 Headache; H11.31 Conjunctival hemorrhage, right eye; M54.5 Low back pain; G89.29 Other chronic pain; R76.11 Nonspecific reaction to tuberculin skin test without active tuberculosis; S00.211D Abrasion of right eyelid and periocular area, subsequent encounter; X58.XXXD Exposure to other specified factors, subsequent encounter

== ENCOUNTER 2017-03-18 09:30 | Inpatient (IN) | payer OTHER ==
[2017-03-18 12:07] VITALS: BMI 31.2
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
[2017-03-18] MEDS ORDERED: chlordiazePOXIDE HCL 25 MG CAPSULE PO ONE (14:25)
[2017-03-18] MEDS ORDERED: MAGNESIUM HYDROX 2400MG/30ML ORAL SUSPENSION 30 ML CUP PO PRN (14:25)
[2017-03-18] MEDS ORDERED: IBUPROFEN 400 MG TABLET (FP) PO PRN (14:25)
[2017-03-18] MEDS ORDERED: chlordiazePOXIDE HCL 25 MG CAPSULE PO PRN (14:25)
[2017-03-18] MEDS ORDERED: ACETAMINOPHEN 325 MG TABLET (FP) PO PRN (14:25)
[2017-03-18] MEDS ORDERED: LOPERAMIDE HCL 2 MG CAPSULE PO PRN (14:25)
[2017-03-18] MEDS ORDERED: MAGNESIUM CITRATE 300 ML BOTTLE PO PRN (14:25)
[2017-03-18] MEDS ORDERED: MAG HYDROX/AL HYDROX/SIMETH 30 ML UNIT-DOSE CUP PO PRN (14:25)
[2017-03-18] MEDS ORDERED: NICOTINE POLACRILEX 2 MG GUM BUC PRN (14:25)
[2017-03-18] MEDS ORDERED: MENTHOL/PHENOL 1 EACH UD MM PRN (14:25)
[2017-03-18] MEDS ORDERED: P-EPHED 60MG/TRIPROLIDI 2.5MG TABLET PO PRN (14:25)
[2017-03-18] MEDS ORDERED: guaiFENesin/D-METHORPHAN HB 10 ML UNIT-DOSE CUPS PO PRN (14:25)
[2017-03-18] MEDS ORDERED: METHADONE HCL 10 MG TABLET (FOR DETOX USE ONLY) PO ONE ×2 (14:34→23:00)
[2017-03-18] MEDS ORDERED: COLLOIDAL OATMEAL 1 BAR EACH TP PRN (14:39)
[2017-03-18] MEDS: NICOTINE 14 MG/24 HOURS TOPICAL PATCH TD SCH (15:02)
--- NOTE | 2017-03-18 16:08 | CONSULT ---
[facility] Psychiatric Consult - Data Date of interview: 03/18/17 Admission source: [facility] Identifying data: Pt. is a 46 year old female, mother of four, single and unemployed. Pt. with multiple admissions to [facility]. Pt. admitted to for Substance Abuse History: Following information confirmed with Ms. Butler: - Smoking Cessation. Smoking history: Current every day smoker. Have you smoked in the past 12 months: Yes. Aproximately how many cigarettes per day: 20. Hx Chewing Tobacco Use: No. Initiated information on smoking cessation: Yes. ' Breaking Loose' booklet given: 03/18/17. - Substance & Tx. History. Hx Alcohol Use: Yes (BEER/VODKA). Hx Substance Use: Yes (HEROIN). Substance Use Type: Alcohol, Heroin. Hx Substance Use Treatment: Yes (LAST TX AT [facility]) . - Substances Abused. Alcohol. Route: Oral. Frequency: Daily. Amount used: 6pack beer, 5th vodka. Age of first use: 19. Date of Last Use: . Heroin. Route: Inhalation. Frequency: Daily. Amount used: 20+ bags. Age of first use: 22. Date of Last Use: 03/17/17 Medical History: Anemia Psychiatric History: Pt. denies h/o past psychiatric hospitalization and suicide attempt. Pt. reports medication non adherence of prozac for the previous two years. Pt. reports having an outpatient psychiatrist at [facility] since 2013 but "misses lots of appointments." Patient is not interested in resuming prozac since medication has not been effective and is medication non-adherent. As per 's note patient first psychiatric evaluation was at age 9 after she was taken to hospital due to behavioral issues and was diagnosed with ADHD and started on ritalin. Pt. has been on the following medications: Seroquel, trazodone, and prozac. Pt. refusing to take psychotrophic medications at this time but would like to be prescribed a sleep aid, preferrably ambien for insomnia. Physical/Sexual Abuse/Trauma History: Denies Additional Comment: Urine Drug Screen Results: OPI-Opiates, BZO-Benzodiazepines , MTD-Methadone, OXY-Oxycodone Mental Status Exam - Mental Status Exam Alert and Oriented to: Time, Place, Person Cognitive Function: Fair Patient Appearance: Unkempt Mood: Withdrawn Affect: Flat Patient Behavior: Sedated, Guarded Speech Pattern: Delayed Voice Loudness: Moderately Soft/Quiet Thought Process: Goal Oriented Thought Disorder: Not Present Hallucinations: Denies Suicidal Ideation: Denies Homicidal Ideation: Denies Insight/Judgement: Poor Sleep: Poorly Appetite: Fair Muscle strength/Tone: Normal Gait/Station: Other (Did not observe patient's gait. Pt. laying in bed during interview.) Psychiatric Findings - Problem List (Salome 1, 2,3) (1) Alcohol dependence with uncomplicated withdrawal Current Visit: Yes Status: Acute (2) Opioid dependence with withdrawal Current Visit: Yes Status: Acute (3) Alcohol dependence Current Visit: Yes Status: Acute (4) Opioid dependence Current Visit: Yes Status: Acute (5) Insomnia Current Visit: Yes Status: Acute (6) Nicotine dependence Current Visit: Yes Status: Acute Qualifiers: Nicotine product type: cigarettes Substance use status: in withdrawal Qualified Code(s): F17.213 - Nicotine dependence, cigarettes, with withdrawal (7) Substance induced mood disorder Current Visit: No Status: Suspected Comment: Pt. reports a history of taking the following medications: Seroquel, prozac and trazodone. - Initial Treatment Plan Initial Treatment Plan: Psychoeducation provided. Detoxification in progress. Ambien 10mg qhs ordered for insomnia. Pt. reports favorable effect from previously taking ambien. Benefits and side effects discussed. Pt. aware of sleep walking as a side effect. Verbal consent given. Will continue to monitor.
[2017-03-18 17:11] LABS: HEMATOCRIT 39.1 % (32.4-45.2); HEMOGLOBIN 12.9 GM/dL (10.7-15.3); MCH 30.2 pg (25.7-33.7); MCHC 32.9 g/dl (32.0-36.0); MEAN CELL VOLUME 91.6 fl (80-96); MEAN PLT VOLUME 9.3 fl (7.5-11.1); PLATELET COUNT 329 K/MM3 (134-434); RBC 4.27 M/mm3 (3.60-5.2); RDW 15.1 % (11.6-15.6); WHITE BLOOD COUNT 6.9 K/mm3 (4.0-10.0)
[2017-03-18 17:29] LABS: ALBUMIN 3.6 g/dl (3.4-5.0); ANION GAP 12 (8-16); BILIRUBIN,TOTAL 0.2 mg/dL (0.2-1.0); BLOOD UREA NITROGEN 9 mg/dL (7-18); CALCIUM 9.6 mg/dL (8.5-10.1); CHLORIDE 103 mmol/L (98-107); CO2 28 mmol/L (21-32); CREATININE 0.8 mg/dL (0.55-1.02); GLUCOSE,RANDOM 106 mg/dL (74-106); POTASSIUM 3.7 mmol/L (3.5-5.1); SGOT/AST 33 U/L (15-37); SGPT/ALT 32 U/L (12-78); SODIUM 143 mmol/L (136-145); TOT PROT 7.4 g/dl (6.4-8.2)
[2017-03-18 17:30] LABS: ALK PHOS 139 U/L (45-117)
[2017-03-18 18:24] LABS: URINE APPEARANCE SLCLOUDY; URINE BILIRUBIN NEGATIVE (NEGATIVE); URINE BLOOD NEGATIVE (NEGATIVE); URINE COLOR LTYELLOW; URINE GLUCOSE (UA) NEGATIVE (NEGATIVE); URINE KETONE NEGATIVE (NEGATIVE); URINE LEUK ESTERASE NEGATIVE (NEGATIVE); URINE NITRITE NEGATIVE (NEGATIVE); URINE PROTEIN NEGATIVE (NEGATIVE); URINE UROBILINOGEN NEGATIVE mg/dL (0.2-1.0)
[2017-03-18] MEDS: chlordiazePOXIDE HCL 25 MG CAPSULE PO SCH ×2 (20:11→22:42)
[2017-03-18] MEDS: THIAMINE HCL 100 MG TABLET (FP) PO SCH (22:42)
[2017-03-18] MEDS: BACITRACIN 0.9 GM PACKET TP SCH (22:42)
[2017-03-18] MEDS: ZOLPIDEM TARTRATE 10 MG TABLET (PARK CARE ONLY) PO PRN (22:42)
[2017-03-18] MEDS: FLUOCINONIDE 0.05% CREAM (60 GM TUBE) TP SCH (22:43)
[2017-03-19] MEDS: chlordiazePOXIDE HCL 25 MG CAPSULE PO SCH ×4 (06:28→23:20)
[2017-03-19] MEDS ORDERED: METHADONE HCL 10 MG TABLET (FOR DETOX USE ONLY) PO SCH (10:00)
[2017-03-19] MEDS: FLUOCINONIDE 0.05% CREAM (60 GM TUBE) TP SCH ×2 (11:04→23:21)
[2017-03-19] MEDS: PRENATAL VITAMINS W/ FOLIC ACID TABLET (FP) PO SCH (11:05)
[2017-03-19] MEDS: NICOTINE 14 MG/24 HOURS TOPICAL PATCH TD SCH (11:05)
[2017-03-19] MEDS: cloNIDine HCL 0.1 MG TABLET PO PRN (11:07)
[2017-03-19] MEDS: BACITRACIN 0.9 GM PACKET TP SCH ×2 (11:08→23:20)
--- NOTE | 2017-03-19 13:13 | EKG ---
Test Reason : Blood Pressure : / mmHG Vent. Rate : 108 BPM Atrial Rate : 108 BPM P-R Int : 122 ms QRS Dur : 070 ms QT Int : 328 ms P-R-T Axes : 065 053 056 degrees QTc Int : 439 ms SINUS TACHYCARDIA SEPTAL INFARCT , AGE UNDETERMINED ABNORMAL ECG WHEN COMPARED WITH ECG OF 13-DEC-2016 13:00, NO SIGNIFICANT CHANGE WAS FOUND Confirmed by DENI WEST MD ([id number]) on 03/19/2017 1:12:32 PM Referred By: Confirmed By:DENI WEST MD
--- NOTE | 2017-03-19 17:00 | PN ---
[facility] CIWA - CIWA Score Nausea/Vomitin Muscle Tremors: 4-Moderate,w/Arms Extend Anxiety: 4-Mod. Anxious/Guarded Agitation: 4-Moderately Restless Paroxysmal Sweats: 3 Orientation: 0-Oriented Tacttile Disturbances: 0-None Auditory Disturbances: 0-None Visual Disturbances: 0-None Headache: 0-None Present CIWA-Ar Total Score: 18 S COWS - Scale Resting Pulse: 1= NE 81-100 Sweatin= Chills/Flushing Restless Observation: 3= Extraneous Movement Pupil Size: 0= Normal to Room Light Bone or Joint Aches: 2= Severe Diffuse Aches Runny Nose/ Eye Tearin= Runny Nose/Eyes GI Upset > 30mins: 2= Nausea/Diarrhea Tremor Observation of Outstretched Hands: 2= Slight Tremor Visible Yawning Observation: 1= 1-2x During Session Anxiety or Irritability: 2=Irritable/Anxious Goose Flesh Skin: 0=Smooth Skin COWS Score: 16 [facility] Progress Note (SOAP) Subjective: Stomach ache, back pain, diarrhea, sweating, nausea Objective: 03/19/17 16:59 Last Vital Signs Temp Pulse Resp BP Pulse Ox 97.9 F 85 16 117/73 03/19/17 15:30 03/19/17 15:30 03/19/17 15:30 03/19/17 15:30 Laboratory Tests 03/18/17 03/18/17 03/18/17 14:00 14:00 14:00 WBC 6.9 RBC 4.27 Hgb 12.9 Hct 39.1 MCV 91.6 MCH 30.2 MCHC 32.9 RDW 15.1 Plt Count 329 D MPV 9.3 Sodium 143 Potassium 3.7 Chloride 103 Carbon Dioxide 28 Anion Gap 12 BUN 9 Creatinine 0.8 Creat Clearance w eGFR > 60 Random Glucose 106 Calcium 9.6 Total Bilirubin 0.2 D AST 33 ALT 32 Alkaline Phosphatase 139 H D Total Protein 7.4 Albumin 3.6 Urine Color Urine Appearance Urine pH Ur Specific [place] Urine Protein Urine Glucose (UA) Urine Ketones Urine Blood Urine Nitrite Urine Bilirubin Urine Urobilinogen Ur Leukocyte Esterase RPR Titer Nonreactive 03/18/17 14:30 WBC RBC Hgb Hct MCV MCH MCHC RDW Plt Count MPV Sodium Potassium Chloride Carbon Dioxide Anion Gap BUN Creatinine Creat Clearance w eGFR Random Glucose Calcium Total Bilirubin AST ALT Alkaline Phosphatase Total Protein Albumin Urine Color Ltyellow Urine Appearance Slcloudy Urine pH 5.0 Ur Specific [place] 1.006 Urine Protein Negative Urine Glucose (UA) Negative Urine Ketones Negative Urine Blood Negative Urine Nitrite Negative Urine Bilirubin Negative Urine Urobilinogen Negative Ur Leukocyte Esterase Negative RPR Titer Labs noted Assessment: 03/19/17 17:00 Withdrawal symptoms Plan: Continue detox Encouraged to drink lots of water for hydration
[2017-03-19] MEDS: THIAMINE HCL 100 MG TABLET (FP) PO SCH (23:21)
[2017-03-20] MEDS: chlordiazePOXIDE HCL 25 MG CAPSULE PO SCH ×2 (06:56→11:37)
[2017-03-20] MEDS: cloNIDine HCL 0.1 MG TABLET PO PRN (06:56)
[2017-03-20] MEDS: BACITRACIN 0.9 GM PACKET TP SCH ×2 (11:37→23:27)
[2017-03-20] MEDS: METHADONE HCL 5 MG TABLET (FOR DETOX USE ONLY) PO SCH (11:37)
[2017-03-20] MEDS: PRENATAL VITAMINS W/ FOLIC ACID TABLET (FP) PO SCH (11:37)
[2017-03-20] MEDS: FLUOCINONIDE 0.05% CREAM (60 GM TUBE) TP SCH ×2 (11:41→23:27)
[2017-03-20] MEDS: NICOTINE 14 MG/24 HOURS TOPICAL PATCH TD SCH (11:46)
--- NOTE | 2017-03-20 15:57 | PN ---
[facility] CIWA - CIWA Score Nausea/Vomitin-No Nausea/No Vomiting Muscle Tremors: 3 Anxiety: 4-Mod. Anxious/Guarded Agitation: 4-Moderately Restless Paroxysmal Sweats: 3 Orientation: 0-Oriented Tacttile Disturbances: 1-Very Mild Itch/Numbness Auditory Disturbances: 0-None Visual Disturbances: 0-None Headache: 0-None Present CIWA-Ar Total Score: 15 [facility] Progress Note (SOAP) Subjective: Back pain, stomach ache, irritable, angry Objective: 03/20/17 15:56 Last Vital Signs Temp Pulse Resp BP Pulse Ox 98 F 80 20 112/70 03/20/17 14:48 03/20/17 14:48 03/20/17 14:48 03/20/17 14:48 Laboratory Tests 03/18/17 03/18/17 03/18/17 14:00 14:00 14:00 WBC 6.9 RBC 4.27 Hgb 12.9 Hct 39.1 MCV 91.6 MCH 30.2 MCHC 32.9 RDW 15.1 Plt Count 329 D MPV 9.3 Sodium 143 Potassium 3.7 Chloride 103 Carbon Dioxide 28 Anion Gap 12 BUN 9 Creatinine 0.8 Creat Clearance w eGFR > 60 Random Glucose 106 Calcium 9.6 Total Bilirubin 0.2 D AST 33 ALT 32 Alkaline Phosphatase 139 H D Total Protein 7.4 Albumin 3.6 Urine Color Urine Appearance Urine pH Ur Specific [place] Urine Protein Urine Glucose (UA) Urine Ketones Urine Blood Urine Nitrite Urine Bilirubin Urine Urobilinogen Ur Leukocyte Esterase RPR Titer Nonreactive 03/18/17 14:30 WBC RBC Hgb Hct MCV MCH MCHC RDW Plt Count MPV Sodium Potassium Chloride Carbon Dioxide Anion Gap BUN Creatinine Creat Clearance w eGFR Random Glucose Calcium Total Bilirubin AST ALT Alkaline Phosphatase Total Protein Albumin Urine Color Ltyellow Urine Appearance Slcloudy Urine pH 5.0 Ur Specific [place] 1.006 Urine Protein Negative Urine Glucose (UA) Negative Urine Ketones Negative Urine Blood Negative Urine Nitrite Negative Urine Bilirubin Negative Urine Urobilinogen Negative Ur Leukocyte Esterase Negative RPR Titer Labs noted Assessment: 03/20/17 15:57 Withdrawal symptoms Plan: Continue detox Encouraged to drink lots of water
[2017-03-20] MEDS: chlordiazePOXIDE 5 MG CAPSULE PO SCH ×2 (17:14→23:27)
[2017-03-20] MEDS: THIAMINE HCL 100 MG TABLET (FP) PO SCH (23:28)
[2017-03-21] MEDS: chlordiazePOXIDE 5 MG CAPSULE PO SCH ×2 (07:49→10:07)
[2017-03-21] MEDS ORDERED: IBUPROFEN 400 MG TABLET (FP) PO PRN (09:50)
--- NOTE | 2017-03-21 09:53 | PN ---
[facility] Progress Note (SOAP) Subjective: Bone pain,sweating,interrupted sleep,restless Objective: 03/21/17 09:51 Vital Signs - 8 hr 03/21/17 03:30 Respiratory 18 Rate Last Vital Signs Temp Pulse Resp BP Pulse Ox 98.1 F 75 18 135/70 03/20/17 17:52 03/20/17 17:52 03/21/17 03:30 03/20/17 17:52 Laboratory Tests 03/18/17 03/18/17 03/18/17 14:00 14:00 14:00 WBC 6.9 RBC 4.27 Hgb 12.9 Hct 39.1 MCV 91.6 MCH 30.2 MCHC 32.9 RDW 15.1 Plt Count 329 D MPV 9.3 Sodium 143 Potassium 3.7 Chloride 103 Carbon Dioxide 28 Anion Gap 12 BUN 9 Creatinine 0.8 Creat Clearance w eGFR > 60 Random Glucose 106 Calcium 9.6 Total Bilirubin 0.2 D AST 33 ALT 32 Alkaline Phosphatase 139 H D Total Protein 7.4 Albumin 3.6 Urine Color Urine Appearance Urine pH Ur Specific [place] Urine Protein Urine Glucose (UA) Urine Ketones Urine Blood Urine Nitrite Urine Bilirubin Urine Urobilinogen Ur Leukocyte Esterase RPR Titer Nonreactive 03/18/17 14:30 WBC RBC Hgb Hct MCV MCH MCHC RDW Plt Count MPV Sodium Potassium Chloride Carbon Dioxide Anion Gap BUN Creatinine Creat Clearance w eGFR Random Glucose Calcium Total Bilirubin AST ALT Alkaline Phosphatase Total Protein Albumin Urine Color Ltyellow Urine Appearance Slcloudy Urine pH 5.0 Ur Specific [place] 1.006 Urine Protein Negative Urine Glucose (UA) Negative Urine Ketones Negative Urine Blood Negative Urine Nitrite Negative Urine Bilirubin Negative Urine Urobilinogen Negative Ur Leukocyte Esterase Negative RPR Titer labs noted Assessment: 03/21/17 09:53 Withdrawal sx. Plan: Continue detox
[2017-03-21] MEDS: METHADONE HCL 5 MG TABLET (FOR DETOX USE ONLY) PO SCH (10:06)
[2017-03-21] MEDS: PRENATAL VITAMINS W/ FOLIC ACID TABLET (FP) PO SCH (10:07)
[2017-03-21] MEDS: BACITRACIN 0.9 GM PACKET TP SCH ×2 (10:09→22:22)
[2017-03-21] MEDS: NICOTINE 14 MG/24 HOURS TOPICAL PATCH TD SCH (10:10)
[2017-03-21] MEDS: FLUOCINONIDE 0.05% CREAM (60 GM TUBE) TP SCH ×2 (10:10→22:21)
[2017-03-21] MEDS: cloNIDine HCL 0.1 MG TABLET PO PRN ×2 (10:11→22:48)
[2017-03-21] MEDS ORDERED: LIDOCAINE 5% TOPICAL PATCH TP SCH (14:30)
[2017-03-21] MEDS: CYCLOBENZAPRINE HCL 10 MG TABLET (FP) PO SCH ×2 (14:56→22:22)
[2017-03-21] MEDS: chlordiazePOXIDE HCL 10 MG CAPSULE PO SCH ×2 (17:24→22:22)
[2017-03-21 21:22] VITALS: TEMP 98.2
[2017-03-21] MEDS ORDERED: LIDOCAINE PATCH REMOVAL MC SCH (22:00)
[2017-03-21] MEDS: THIAMINE HCL 100 MG TABLET (FP) PO SCH (22:22)
[2017-03-21] MEDS: ZOLPIDEM TARTRATE 10 MG TABLET (PARK CARE ONLY) PO PRN (22:25)
[2017-03-22 06:27] VITALS: BP 107/72; PULSE 78
[2017-03-22] MEDS: chlordiazePOXIDE HCL 10 MG CAPSULE PO SCH (06:27)
[2017-03-22] MEDS: CYCLOBENZAPRINE HCL 10 MG TABLET (FP) PO SCH (06:28)
[2017-03-22] MEDS ORDERED: METHADONE HCL 10 MG TABLET (FOR DETOX USE ONLY) PO SCH (10:00)
--- NOTE | 2017-03-22 13:17 | DS ---
[facility] Detox Discharge Summary Admission Date: 03/18/17 Discharge Date: 03/22/17 - History Present History: Alcohol Dependence, Opioid Dependence, Sedative Dependence Pertinent Past History: Anemia elevated BP without dx of HTN - Physical Exam Results Vital Signs: Vital Signs Temperature 98.2 F 03/22/17 06:00 Pulse Rate 78 03/22/17 06:00 Respiratory Rate 18 03/22/17 06:00 Blood Pressure 107/72 03/22/17 06:00 O2 Sat by Pulse Oximetry (%) Pertinent Admission Physical Exam Findings: Vital Signs Temperature 98.2 F 03/22/17 06:00 Pulse Rate 78 03/22/17 06:00 Respiratory Rate 18 03/22/17 06:00 Blood Pressure 107/72 03/22/17 06:00 O2 Sat by Pulse Oximetry (%) Laboratory Last Values WBC 6.9 K/mm3 (4.0-10.0) 03/18/17 14:00 RBC 4.27 M/mm3 (3.60-5.2) 03/18/17 14:00 Hgb 12.9 GM/dL (10.7-15.3) 03/18/17 14:00 Hct 39.1 % (32.4-45.2) 03/18/17 14:00 MCV 91.6 fl (80-96) 03/18/17 14:00 MCH 30.2 pg (25.7-33.7) 03/18/17 14:00 MCHC 32.9 g/dl (32.0-36.0) 03/18/17 14:00 RDW 15.1 % (11.6-15.6) 03/18/17 14:00 Plt Count 329 K/MM3 (134-434) D 03/18/17 14:00 MPV 9.3 fl (7.5-11.1) 03/18/17 14:00 Sodium 143 mmol/L (136-145) 03/18/17 14:00 Potassium 3.7 mmol/L (3.5-5.1) 03/18/17 14:00 Chloride 103 mmol/L (98-107) 03/18/17 14:00 Carbon Dioxide 28 mmol/L (21-32) 03/18/17 14:00 Anion Gap 12 (8-16) 03/18/17 14:00 BUN 9 mg/dL (7-18) 03/18/17 14:00 Creatinine 0.8 mg/dL (0.55-1.02) 03/18/17 14:00 Creat Clearance w eGFR > 60 (>60) 03/18/17 14:00 Random Glucose 106 mg/dL (74-106) 03/18/17 14:00 Calcium 9.6 mg/dL (8.5-10.1) 03/18/17 14:00 Total Bilirubin 0.2 mg/dL (0.2-1.0) D 03/18/17 14:00 AST 33 U/L (15-37) 03/18/17 14:00 ALT 32 U/L (12-78) 03/18/17 14:00 Alkaline Phosphatase 139 U/L (45-117) H D 03/18/17 14:00 Total Protein 7.4 g/dl (6.4-8.2) 03/18/17 14:00 Albumin 3.6 g/dl (3.4-5.0) 03/18/17 14:00 Urine Color Ltyellow 03/18/17 14:30 Urine Appearance Slcloudy 03/18/17 14:30 Urine pH 5.0 (5.0-8.0) 03/18/17 14:30 Ur Specific [place] 1.006 (1.001-1.035) 03/18/17 14:30 Urine Protein Negative (NEGATIVE) 03/18/17 14:30 Urine Glucose (UA) Negative (NEGATIVE) 03/18/17 14:30 Urine Ketones Negative (NEGATIVE) 03/18/17 14:30 Urine Blood Negative (NEGATIVE) 03/18/17 14:30 Urine Nitrite Negative (NEGATIVE) 03/18/17 14:30 Urine Bilirubin Negative (NEGATIVE) 03/18/17 14:30 Urine Urobilinogen Negative mg/dL (0.2-1.0) 03/18/17 14:30 Ur Leukocyte Esterase Negative (NEGATIVE) 03/18/17 14:30 RPR Titer Nonreactive (NONREACTIVE) 03/18/17 14:00 Labs noted - Medication Discharge Medications: Ambulatory Orders Quetiapine Fumarate [Seroquel] 100 mg PO HS #30 tablet 06/14/16 Fluoxetine HCl [Prozac -] 20 mg PO DAILY 03/18/17 - Diagnosis (1) Alcohol dependence with uncomplicated withdrawal Status: Acute (2) Opioid dependence Status: Acute (3) Elevated blood pressure reading without diagnosis of hypertension Status: Acute (4) Chronic low back pain Status: Chronic Qualifiers: Back pain laterality: unspecified - AMA Did Patient Leave Against Medical Advice: No (Pt d/c s/p non compliance with unit rules)
[2017-03-23] MEDS ORDERED: METHADONE HCL 5 MG TABLET (FOR DETOX USE ONLY) PO SCH (06:00)
== END 2017-03-22 08:54 | disposition home or self-care (01) | DRG 773 ==
LOC: YASAS 09:30 → Y6N 13:17
PROVIDERS: ADMIT Internal Medicine; ATTEND Internal Medicine
PROC: HZ2ZZZZ Detoxification Services for Substance Abuse Treatment (ICD-10-PCS; principal; 2017-03-18)
DX: F11.23 Opioid dependence with withdrawal (principal); F10.230 Alcohol dependence with withdrawal, uncomplicated; F17.213 Nicotine dependence, cigarettes, with withdrawal; F91.8 Other conduct disorders; F19.24 Other psychoactive substance dependence with psychoactive substance-induced mood disorder; R03.0 Elevated blood-pressure reading, without diagnosis of hypertension; M54.5 Low back pain; G89.29 Other chronic pain; G47.00 Insomnia, unspecified; Z91.19 Patient's noncompliance with other medical treatment and regimen; R76.11 Nonspecific reaction to tuberculin skin test without active tuberculosis; Z91.018 Allergy to other foods; Z86.2 Personal history of diseases of the blood and blood-forming organs and certain disorders involving the immune mechanism
CPT/HCPCS: 36415; 80053; 81003; 85027; 86593; 93005; 93010

== ENCOUNTER 2018-04-11 13:03 | Inpatient (IN) | payer OTHER ==
[2018-04-11 13:17] VITALS: BMI 26.5
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
[2018-04-11] MEDS ORDERED: MAGNESIUM HYDROX 2400MG/30ML ORAL SUSPENSION 30 ML CUP PO PRN (15:21)
[2018-04-11] MEDS ORDERED: IBUPROFEN 400 MG TABLET (FP) PO PRN (15:21)
[2018-04-11] MEDS ORDERED: guaiFENesin/D-METHORPHAN HB 10 ML UNIT-DOSE CUPS PO PRN (15:21)
[2018-04-11] MEDS ORDERED: ACETAMINOPHEN 325 MG TABLET (FP) PO PRN (15:21)
[2018-04-11] MEDS ORDERED: MAGNESIUM CITRATE 300 ML BOTTLE PO PRN (15:21)
[2018-04-11] MEDS ORDERED: LOPERAMIDE HCL 2 MG CAPSULE PO PRN (15:21)
[2018-04-11] MEDS ORDERED: MENTHOL/PHENOL 1 EACH UD MM PRN (15:21)
[2018-04-11] MEDS ORDERED: MAG HYDROX/AL HYDROX/SIMETH 30 ML UNIT-DOSE CUP PO PRN (15:21)
[2018-04-11] MEDS ORDERED: P-EPHED 60MG/TRIPROLIDI 2.5MG TABLET PO PRN (15:21)
[2018-04-11] MEDS: chlordiazePOXIDE HCL 25 MG CAPSULE PO SCH ×2 (17:34→22:30)
[2018-04-11] MEDS: chlordiazePOXIDE 5 MG CAPSULE PO PRN (18:45)
[2018-04-11] MEDS: HYDROCORTISONE 1% TOPICAL OINT 30 GM TUBE TP PRN (18:46)
[2018-04-11] MEDS ORDERED: MELATONIN 5 MG TABLETS PO PRN (22:00)
[2018-04-11] MEDS: THIAMINE HCL 100 MG TABLET (FP) PO SCH (22:30)
[2018-04-11] MEDS ORDERED: hydrOXYzine PAMOATE 25 MG CAPSULE (FP) PO ONE (22:41)
[2018-04-12] MEDS: chlordiazePOXIDE 5 MG CAPSULE PO PRN ×2 (01:31→14:59)
[2018-04-12] MEDS ORDERED: METHADONE HCL 10 MG TABLET ONE (04:17)
[2018-04-12] MEDS ORDERED: METHADONE HCL 40 MG DISPERSABLE TABLET ONE (04:18)
[2018-04-12] MEDS: METHADONE 40 MG, METHADONE 20 MG PO SCH (05:55)
[2018-04-12] MEDS: chlordiazePOXIDE HCL 25 MG CAPSULE PO SCH ×2 (05:56→10:08)
[2018-04-12] MEDS ORDERED: METHADONE HCL 5 MG TABLET PO SCH (06:00)
[2018-04-12] MEDS: HYDROCORTISONE 1% TOPICAL OINT 30 GM TUBE TP PRN (06:10)
--- NOTE | 2018-04-12 10:00 | PN ---
[facility] CIWA - CIWA Score Nausea/Vomitin Muscle Tremors: 3 Anxiety: 3 Agitation: 2 Paroxysmal Sweats: 3 Orientation: 0-Oriented Tacttile Disturbances: 0-None Auditory Disturbances: 0-None Visual Disturbances: 0-None Headache: 0-None Present CIWA-Ar Total Score: 14 [facility] Progress Note (SOAP) Subjective: SWEATS DIARRHEA Objective: 04/12/18 09:59 A & o X 3 ambulating on unit Vital Signs Temperature 98.1 F 04/12/18 09:22 Pulse Rate 79 04/12/18 09:22 Respiratory Rate 18 04/12/18 09:22 Blood Pressure 128/87 04/12/18 09:22 O2 Sat by Pulse Oximetry (%) Laboratory Last Values WBC 5.7 K/mm3 (4.0-10.0) 04/12/18 07:55 RBC 4.04 M/mm3 (3.60-5.2) 04/12/18 07:55 Hgb 13.8 GM/dL (10.7-15.3) 04/12/18 07:55 Hct 40.2 % (32.4-45.2) 04/12/18 07:55 MCV 99.5 fl (80-96) H 04/12/18 07:55 MCH 34.1 pg (25.7-33.7) H D 04/12/18 07:55 MCHC 34.2 g/dl (32.0-36.0) 04/12/18 07:55 RDW 14.3 % (11.6-15.6) 04/12/18 07:55 Plt Count 170 K/MM3 (134-434) D 04/12/18 07:55 MPV 9.7 fl (7.5-11.1) 04/12/18 07:55 Sodium 139 mmol/L (136-145) 04/12/18 07:55 Potassium 3.7 mmol/L (3.5-5.1) 04/12/18 07:55 Chloride 100 mmol/L (98-107) 04/12/18 07:55 Carbon Dioxide 31 mmol/L (21-32) 04/12/18 07:55 Anion Gap 8 MMOL/L (8-16) 04/12/18 07:55 BUN 10 mg/dL (7-18) 04/12/18 07:55 Creatinine 0.7 mg/dL (0.55-1.3) 04/12/18 07:55 Creat Clearance w eGFR > 60 (>60) 04/12/18 07:55 Random Glucose 162 mg/dL (74-106) H 04/12/18 07:55 Calcium 9.5 mg/dL (8.5-10.1) 04/12/18 07:55 Total Bilirubin 0.5 mg/dL (0.2-1) 04/12/18 07:55 AST 28 U/L (15-37) 04/12/18 07:55 ALT 25 U/L (13-61) 04/12/18 07:55 Alkaline Phosphatase 173 U/L (45-117) H 04/12/18 07:55 Total Protein 6.6 g/dl (6.4-8.2) 04/12/18 07:55 Albumin 3.7 g/dl (3.4-5.0) 04/12/18 07:55 Urine Color Yellow 04/12/18 07:55 Urine Appearance Cloudy 04/12/18 07:55 Urine pH 7.0 (5.0-8.0) D 04/12/18 07:55 Ur Specific [place] 1.015 (1.010-1.035) 04/12/18 07:55 Urine Protein Negative (NEGATIVE) 04/12/18 07:55 Urine Glucose (UA) Negative (NEGATIVE) 04/12/18 07:55 Urine Ketones Negative (NEGATIVE) 04/12/18 07:55 Urine Blood Negative (NEGATIVE) 04/12/18 07:55 Urine Nitrite Negative (NEGATIVE) 04/12/18 07:55 Urine Bilirubin Negative (<2.0 mg/dL) 04/12/18 07:55 Urine Urobilinogen 4.0 e.u/dl mg/dL (0.2-1.0) H 04/12/18 07:55 Ur Leukocyte Esterase Negative (NEGATIVE) 04/12/18 07:55 labs noted high serum sugar Assessment: 04/12/18 11:15 withdrawal sx Plan: Continue detox increase hydration monitor blood glucose
[2018-04-12 10:07] LABS: HEMATOCRIT 40.2 % (32.4-45.2); HEMOGLOBIN 13.8 GM/dL (10.7-15.3); MCH 34.1 pg (25.7-33.7); MCHC 34.2 g/dl (32.0-36.0); MEAN CELL VOLUME 99.5 fl (80-96); MEAN PLT VOLUME 9.7 fl (7.5-11.1); PLATELET COUNT 170 K/MM3 (134-434); RBC 4.04 M/mm3 (3.60-5.2); RDW 14.3 % (11.6-15.6); WHITE BLOOD COUNT 5.7 K/mm3 (4.0-10.0)
[2018-04-12] MEDS: PRENATAL VITAMINS W/ FOLIC ACID TABLET (FP) PO SCH (10:07)
[2018-04-12 10:16] LABS: ALBUMIN 3.7 g/dl (3.4-5.0); ALK PHOS 173 U/L (45-117); ANION GAP 8 MMOL/L (8-16); BILIRUBIN,TOTAL 0.5 mg/dL (0.2-1); BLOOD UREA NITROGEN 10 mg/dL (7-18); CALCIUM 9.5 mg/dL (8.5-10.1); CHLORIDE 100 mmol/L (98-107); CO2 31 mmol/L (21-32); CREATININE 0.7 mg/dL (0.55-1.3); GLUCOSE,RANDOM 162 mg/dL (74-106); POTASSIUM 3.7 mmol/L (3.5-5.1); SGOT/AST 28 U/L (15-37); SGPT/ALT 25 U/L (13-61); SODIUM 139 mmol/L (136-145); TOT PROT 6.6 g/dl (6.4-8.2)
[2018-04-12 10:17] LABS: URINE APPEARANCE CLOUDY; URINE BILIRUBIN NEGATIVE (<2.0 mg/dL); URINE COLOR YELLOW; URINE GLUCOSE (UA) NEGATIVE (NEGATIVE); URINE KETONE NEGATIVE (NEGATIVE); URINE LEUK ESTERASE NEGATIVE (NEGATIVE); URINE NITRITE NEGATIVE (NEGATIVE); URINE PROTEIN NEGATIVE (NEGATIVE); URINE UROBILINOGEN 4.0 E.U/dl mg/dL (0.2-1.0)
[2018-04-12] MEDS ORDERED: IBUPROFEN 400 MG TABLET (FP) PO PRN (14:45)
[2018-04-12] MEDS ORDERED: INDOMETHACIN 25 MG CAPSULE PO SCH (14:45)
[2018-04-12] MEDS ORDERED: chlordiazePOXIDE HCL 25 MG CAPSULE PO SCH (17:00)
[2018-04-12] MEDS: chlordiazePOXIDE 5 MG CAPSULE PO SCH ×2 (17:52→22:10)
[2018-04-12] MEDS: INDOMETHACIN 25 MG CAPSULE PO SCH (17:54)
[2018-04-12] MEDS: THIAMINE HCL 100 MG TABLET (FP) PO SCH (22:11)
[2018-04-13] MEDS: hydrOXYzine PAMOATE 50 MG CAPSULE (FP) PO PRN ×3 (02:51→22:32)
[2018-04-13] MEDS ORDERED: METHADONE HCL 10 MG TABLET ONE (03:15)
[2018-04-13] MEDS ORDERED: METHADONE HCL 40 MG DISPERSABLE TABLET ONE (03:15)
[2018-04-13] MEDS: METHADONE 40 MG, METHADONE 20 MG PO SCH (05:58)
[2018-04-13] MEDS: chlordiazePOXIDE 5 MG CAPSULE PO SCH ×2 (05:58→10:25)
[2018-04-13] MEDS: INDOMETHACIN 25 MG CAPSULE PO SCH ×3 (10:25→17:46)
[2018-04-13] MEDS: PRENATAL VITAMINS W/ FOLIC ACID TABLET (FP) PO SCH (10:25)
--- NOTE | 2018-04-13 14:08 | PN ---
[facility] CIWA - CIWA Score Nausea/Vomitin-No Nausea/No Vomiting Muscle Tremors: 3 Anxiety: 3 Agitation: 1-Slight > Activity Paroxysmal Sweats: No Perspiration Orientation: 4Disoriented Place/Person Tacttile Disturbances: 2-Mild Itch/Numbness/Burn Auditory Disturbances: 0-None Visual Disturbances: 3-Moderate Sensitivity Headache: 0-None Present CIWA-Ar Total Score: 16 [facility] Progress Note (SOAP) Subjective: Body Aches, Anxious, Tremors, Hot / Cold Sensations, Diarrhea. Objective: PATIENT A & O X 2 (UNCERTAIN ABOUT CURRENT LOCATION). PATIENT OBSERVED AMBULATING ON UNIT. IN NO ACUTE DISTRESS. 04/13/18 14:04 Vital Signs Temperature 96.4 F L 04/13/18 13:22 Pulse Rate 70 04/13/18 13:22 Respiratory Rate 16 04/13/18 13:22 Blood Pressure 117/79 04/13/18 13:22 O2 Sat by Pulse Oximetry (%) Laboratory Tests 04/12/18 04/12/18 04/12/18 07:55 07:55 07:55 WBC 5.7 RBC 4.04 Hgb 13.8 Hct 40.2 MCV 99.5 H MCH 34.1 H D MCHC 34.2 RDW 14.3 Plt Count 170 D MPV 9.7 Sodium 139 Potassium 3.7 Chloride 100 Carbon Dioxide 31 Anion Gap 8 BUN 10 Creatinine 0.7 Creat Clearance w eGFR > 60 Random Glucose 162 H Calcium 9.5 Total Bilirubin 0.5 AST 28 ALT 25 Alkaline Phosphatase 173 H Total Protein 6.6 Albumin 3.7 Urine Color Urine Appearance Urine pH Ur Specific [place] Urine Protein Urine Glucose (UA) Urine Ketones Urine Blood Urine Nitrite Urine Bilirubin Urine Urobilinogen Ur Leukocyte Esterase RPR Titer Nonreactive 04/12/18 07:55 WBC RBC Hgb Hct MCV MCH MCHC RDW Plt Count MPV Sodium Potassium Chloride Carbon Dioxide Anion Gap BUN Creatinine Creat Clearance w eGFR Random Glucose Calcium Total Bilirubin AST ALT Alkaline Phosphatase Total Protein Albumin Urine Color Yellow Urine Appearance Cloudy Urine pH 7.0 D Ur Specific [place] 1.015 Urine Protein Negative Urine Glucose (UA) Negative Urine Ketones Negative Urine Blood Negative Urine Nitrite Negative Urine Bilirubin Negative Urine Urobilinogen 4.0 e.u/dl H Ur Leukocyte Esterase Negative RPR Titer LABS NOTED. Assessment: 01/22/19 14:08 WITHDRAWAL SYMPTOMS. Plan: CONTINUE DETOX. INCREASE DAILY PO FLUID INTAKE. PRN IMMODIUM FOR DIARRHEA. BGM ACBK FOR ELEVATED ADMISSION RANDOM GLUCOSE VALUE.
[2018-04-13] MEDS: chlordiazePOXIDE HCL 10 MG CAPSULE PO SCH ×2 (17:46→22:32)
[2018-04-13] MEDS: THIAMINE HCL 100 MG TABLET (FP) PO SCH (22:30)
[2018-04-14] MEDS: hydrOXYzine PAMOATE 50 MG CAPSULE (FP) PO PRN (03:05)
[2018-04-14] MEDS ORDERED: METHADONE HCL 10 MG TABLET ONE (04:28)
[2018-04-14] MEDS ORDERED: METHADONE HCL 40 MG DISPERSABLE TABLET ONE (04:28)
[2018-04-14] MEDS: chlordiazePOXIDE HCL 10 MG CAPSULE PO SCH ×2 (05:53→10:31)
[2018-04-14] MEDS: METHADONE 40 MG, METHADONE 20 MG PO SCH (05:53)
[2018-04-14] MEDS: HYDROCORTISONE 1% TOPICAL OINT 30 GM TUBE TP PRN (06:10)
[2018-04-14] MEDS: PRENATAL VITAMINS W/ FOLIC ACID TABLET (FP) PO SCH (10:31)
[2018-04-14] MEDS: INDOMETHACIN 25 MG CAPSULE PO SCH ×3 (10:32→17:28)
--- NOTE | 2018-04-14 11:43 | PN ---
[facility] Progress Note (SOAP) Subjective: feeling better less tremor mild sweating sleep better at night methadone 60 mg daily Objective: 04/14/18 11:41 Vital Signs Temperature 97.5 F L 04/14/18 09:20 Pulse Rate 87 04/14/18 09:20 Respiratory Rate 18 04/14/18 09:20 Blood Pressure 127/83 04/14/18 09:20 O2 Sat by Pulse Oximetry (%) Laboratory Last Values WBC 5.7 K/mm3 (4.0-10.0) 04/12/18 07:55 RBC 4.04 M/mm3 (3.60-5.2) 04/12/18 07:55 Hgb 13.8 GM/dL (10.7-15.3) 04/12/18 07:55 Hct 40.2 % (32.4-45.2) 04/12/18 07:55 MCV 99.5 fl (80-96) H 04/12/18 07:55 MCH 34.1 pg (25.7-33.7) H D 04/12/18 07:55 MCHC 34.2 g/dl (32.0-36.0) 04/12/18 07:55 RDW 14.3 % (11.6-15.6) 04/12/18 07:55 Plt Count 170 K/MM3 (134-434) D 04/12/18 07:55 MPV 9.7 fl (7.5-11.1) 04/12/18 07:55 Sodium 139 mmol/L (136-145) 04/12/18 07:55 Potassium 3.7 mmol/L (3.5-5.1) 04/12/18 07:55 Chloride 100 mmol/L (98-107) 04/12/18 07:55 Carbon Dioxide 31 mmol/L (21-32) 04/12/18 07:55 Anion Gap 8 MMOL/L (8-16) 04/12/18 07:55 BUN 10 mg/dL (7-18) 04/12/18 07:55 Creatinine 0.7 mg/dL (0.55-1.3) 04/12/18 07:55 Creat Clearance w eGFR > 60 (>60) 04/12/18 07:55 POC Glucometer 140 UNITS (80-120) 04/14/18 05:52 Random Glucose 162 mg/dL (74-106) H 04/12/18 07:55 Calcium 9.5 mg/dL (8.5-10.1) 04/12/18 07:55 Total Bilirubin 0.5 mg/dL (0.2-1) 04/12/18 07:55 AST 28 U/L (15-37) 04/12/18 07:55 ALT 25 U/L (13-61) 04/12/18 07:55 Alkaline Phosphatase 173 U/L (45-117) H 04/12/18 07:55 Total Protein 6.6 g/dl (6.4-8.2) 04/12/18 07:55 Albumin 3.7 g/dl (3.4-5.0) 04/12/18 07:55 Urine Color Yellow 04/12/18 07:55 Urine Appearance Cloudy 04/12/18 07:55 Urine pH 7.0 (5.0-8.0) D 04/12/18 07:55 Ur Specific [place] 1.015 (1.010-1.035) 04/12/18 07:55 Urine Protein Negative (NEGATIVE) 04/12/18 07:55 Urine Glucose (UA) Negative (NEGATIVE) 04/12/18 07:55 Urine Ketones Negative (NEGATIVE) 04/12/18 07:55 Urine Blood Negative (NEGATIVE) 04/12/18 07:55 Urine Nitrite Negative (NEGATIVE) 04/12/18 07:55 Urine Bilirubin Negative (<2.0 mg/dL) 04/12/18 07:55 Urine Urobilinogen 4.0 e.u/dl mg/dL (0.2-1.0) H 04/12/18 07:55 Ur Leukocyte Esterase Negative (NEGATIVE) 04/12/18 07:55 RPR Titer Nonreactive (NONREACTIVE) 04/12/18 07:55 lab noted Assessment: 04/14/18 11:42 mild withdrawal sx Plan: continue detox
[2018-04-14] MEDS: chlordiazePOXIDE 5 MG CAPSULE PO SCH ×2 (17:28→22:21)
[2018-04-14] MEDS: THIAMINE HCL 100 MG TABLET (FP) PO SCH (22:21)
[2018-04-15] MEDS ORDERED: METHADONE HCL 40 MG DISPERSABLE TABLET ONE ×2 (05:08→05:10)
[2018-04-15] MEDS ORDERED: METHADONE HCL 10 MG TABLET ONE ×2 (05:08→05:10)
[2018-04-15] MEDS: chlordiazePOXIDE 5 MG CAPSULE PO SCH (05:24)
[2018-04-15] MEDS: METHADONE 40 MG, METHADONE 20 MG PO SCH (05:24)
[2018-04-15 06:21] VITALS: BP 125/83; PULSE 93; TEMP 97
--- NOTE | 2018-04-15 12:16 | DS ---
[facility] Detox Discharge Summary Admission Date: 04/11/18 Discharge Date: 04/15/18 - History Present History: Alcohol Dependence Additional Comments: 47 years old female admitted on 04/11/18 for alcohol withdrawal stabilization completed detox regimen tolerated well aftercare methadone maintenance program - Physical Exam Results Vital Signs: Vital Signs Temperature 97 F L 04/15/18 06:21 Pulse Rate 93 H 04/15/18 06:21 Respiratory Rate 16 04/15/18 06:21 Blood Pressure 125/83 04/15/18 06:21 O2 Sat by Pulse Oximetry (%) Pertinent Admission Physical Exam Findings: alcohol withdrawal sx Laboratory Last Values WBC 5.7 K/mm3 (4.0-10.0) 04/12/18 07:55 RBC 4.04 M/mm3 (3.60-5.2) 04/12/18 07:55 Hgb 13.8 GM/dL (10.7-15.3) 04/12/18 07:55 Hct 40.2 % (32.4-45.2) 04/12/18 07:55 MCV 99.5 fl (80-96) H 04/12/18 07:55 MCH 34.1 pg (25.7-33.7) H D 04/12/18 07:55 MCHC 34.2 g/dl (32.0-36.0) 04/12/18 07:55 RDW 14.3 % (11.6-15.6) 04/12/18 07:55 Plt Count 170 K/MM3 (134-434) D 04/12/18 07:55 MPV 9.7 fl (7.5-11.1) 04/12/18 07:55 Sodium 139 mmol/L (136-145) 04/12/18 07:55 Potassium 3.7 mmol/L (3.5-5.1) 04/12/18 07:55 Chloride 100 mmol/L (98-107) 04/12/18 07:55 Carbon Dioxide 31 mmol/L (21-32) 04/12/18 07:55 Anion Gap 8 MMOL/L (8-16) 04/12/18 07:55 BUN 10 mg/dL (7-18) 04/12/18 07:55 Creatinine 0.7 mg/dL (0.55-1.3) 04/12/18 07:55 Creat Clearance w eGFR > 60 (>60) 04/12/18 07:55 POC Glucometer 116 UNITS (80-120) 04/15/18 05:50 Random Glucose 162 mg/dL (74-106) H 04/12/18 07:55 Calcium 9.5 mg/dL (8.5-10.1) 04/12/18 07:55 Total Bilirubin 0.5 mg/dL (0.2-1) 04/12/18 07:55 AST 28 U/L (15-37) 04/12/18 07:55 ALT 25 U/L (13-61) 04/12/18 07:55 Alkaline Phosphatase 173 U/L (45-117) H 04/12/18 07:55 Total Protein 6.6 g/dl (6.4-8.2) 04/12/18 07:55 Albumin 3.7 g/dl (3.4-5.0) 04/12/18 07:55 Urine Color Yellow 04/12/18 07:55 Urine Appearance Cloudy 04/12/18 07:55 Urine pH 7.0 (5.0-8.0) D 04/12/18 07:55 Ur Specific [place] 1.015 (1.010-1.035) 04/12/18 07:55 Urine Protein Negative (NEGATIVE) 04/12/18 07:55 Urine Glucose (UA) Negative (NEGATIVE) 04/12/18 07:55 Urine Ketones Negative (NEGATIVE) 04/12/18 07:55 Urine Blood Negative (NEGATIVE) 04/12/18 07:55 Urine Nitrite Negative (NEGATIVE) 04/12/18 07:55 Urine Bilirubin Negative (<2.0 mg/dL) 04/12/18 07:55 Urine Urobilinogen 4.0 e.u/dl mg/dL (0.2-1.0) H 04/12/18 07:55 Ur Leukocyte Esterase Negative (NEGATIVE) 04/12/18 07:55 RPR Titer Nonreactive (NONREACTIVE) 04/12/18 07:55 lab noted - Treatment Hospital Course: Detox Protocol Followed, Detoxed Safely, Responded well, Discharged Condition Good, Rehab Referral Accepted Patient has Accepted a Rehab Referral to: return to methadone maintenance program for medical mental and addiction is - Medication Discharge Medications: Ambulatory Orders Methadone [Dolophine -] 60 mg PO DAILY 04/11/18 Indomethacin [Indocin -] 25 mg PO TID #90 capsule 04/14/18 - Diagnosis (1) Alcohol dependence with uncomplicated withdrawal Status: Acute (2) Opioid dependence on agonist therapy Status: Chronic (3) Nicotine dependence Status: Acute Qualifiers: Nicotine product type: cigarettes Substance use status: in withdrawal Qualified Code(s): F17.213 - Nicotine dependence, cigarettes, with withdrawal (4) PPD positive Status: Resolved (5) Substance induced mood disorder Status: Suspected - AMA Did Patient Leave Against Medical Advice: No
== END 2018-04-15 07:30 | disposition home or self-care (01) | DRG 773 ==
LOC: YASAS 13:03 → Y3N 16:00
PROVIDERS: ADMIT Neuromusculoskeletal Medicine & OMM; ATTEND Neuromusculoskeletal Medicine & OMM
PROC: HZ2ZZZZ Detoxification Services for Substance Abuse Treatment (ICD-10-PCS; principal; 2018-04-11)
DX: F10.230 Alcohol dependence with withdrawal, uncomplicated (principal); F11.20 Opioid dependence, uncomplicated; F17.210 Nicotine dependence, cigarettes, uncomplicated; F19.24 Other psychoactive substance dependence with psychoactive substance-induced mood disorder; R76.11 Nonspecific reaction to tuberculin skin test without active tuberculosis; F32.9 Major depressive disorder, single episode, unspecified; Z91.018 Allergy to other foods
CPT/HCPCS: 36415; 80053; 81003; 82962; 85027; 86593

== ENCOUNTER 2018-04-30 13:19 | Inpatient (IN) | payer OTHER ==
[2018-04-30 13:37] VITALS: BMI 27.8
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
[2018-04-30] MEDS ORDERED: IBUPROFEN 400 MG TABLET (FP) PO PRN (16:01)
[2018-04-30] MEDS ORDERED: NICOTINE POLACRILEX 2 MG GUM BC PRN (16:01)
[2018-04-30] MEDS ORDERED: MAGNESIUM CITRATE 300 ML BOTTLE PO PRN (16:01)
[2018-04-30] MEDS ORDERED: MAGNESIUM HYDROX 2400MG/30ML ORAL SUSPENSION 30 ML CUP PO PRN (16:01)
[2018-04-30] MEDS ORDERED: MENTHOL/PHENOL 1 EACH UD MM PRN (16:01)
[2018-04-30] MEDS ORDERED: MAG HYDROX/AL HYDROX/SIMETH 30 ML UNIT-DOSE CUP PO PRN (16:01)
[2018-04-30] MEDS ORDERED: TUBERCULIN PPD 5 TU/0.1ML VIAL ID ONE (18:29)
[2018-04-30] MEDS ORDERED: MELATONIN 5 MG TABLETS PO PRN (22:00)
[2018-04-30] MEDS: THIAMINE HCL 100 MG TABLET (FP) PO SCH (23:12)
[2018-04-30] MEDS: TRIAMCINOLONE ACET 0.1% OINT 15 GM TUBE TP SCH (23:12)
[2018-05-01] MEDS: TRIAMCINOLONE ACET 0.1% OINT 15 GM TUBE TP SCH ×3 (06:39→21:17)
[2018-05-01] MEDS: ACETAMINOPHEN 325 MG TABLET (FP) PO PRN (06:39)
[2018-05-01] MEDS ORDERED: CYCLOBENZAPRINE HCL 5 MG TABLET PO PRN (06:46)
[2018-05-01] MEDS ORDERED: IBUPROFEN 400 MG TABLET (FP) PO ONE (06:47)
[2018-05-01] MEDS ORDERED: IBUPROFEN 400 MG TABLET (FP) PO PRN (06:48)
[2018-05-01] MEDS: LIDOCAINE 5% TOPICAL PATCH TP SCH ×2 (07:25→09:34)
[2018-05-01] MEDS ORDERED: METHADONE HCL 10 MG TABLET PO SCH (09:15)
[2018-05-01] MEDS ORDERED: METHADONE HCL 10 MG TABLET ONE (09:22)
[2018-05-01] MEDS ORDERED: METHADONE HCL 40 MG DISPERSABLE TABLET ONE (09:23)
[2018-05-01] MEDS: METHADONE 40 MG, METHADONE 20 MG PO SCH (09:32)
[2018-05-01] MEDS: PRENATAL VITAMINS W/ FOLIC ACID TABLET (FP) PO SCH (09:33)
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
[2018-05-01] MEDS: GABAPENTIN 300 MG CAPSULE (FP) PO PRN (21:17)
[2018-05-01] MEDS: THIAMINE HCL 100 MG TABLET (FP) PO SCH (21:17)
[2018-05-01] MEDS: LIDOCAINE PATCH REMOVAL MC SCH (21:18)
[2018-05-02] MEDS ORDERED: METHADONE HCL 40 MG DISPERSABLE TABLET ONE (03:41)
[2018-05-02] MEDS ORDERED: METHADONE HCL 10 MG TABLET ONE (03:41)
[2018-05-02] MEDS: METHADONE 40 MG, METHADONE 20 MG PO SCH (06:21)
[2018-05-02] MEDS: TRIAMCINOLONE ACET 0.1% OINT 15 GM TUBE TP SCH ×3 (06:22→21:13)
[2018-05-02] MEDS: LIDOCAINE 5% TOPICAL PATCH TP SCH (09:45)
[2018-05-02] MEDS: PRENATAL VITAMINS W/ FOLIC ACID TABLET (FP) PO SCH (09:45)
[2018-05-02] MEDS: GABAPENTIN 300 MG CAPSULE (FP) PO PRN ×2 (10:15→21:13)
[2018-05-02 12:11] LABS: URINE APPEARANCE SLCLOUDY; URINE BILIRUBIN NEGATIVE (<2.0 mg/dL); URINE COLOR YELLOW; URINE GLUCOSE (UA) NEGATIVE (NEGATIVE); URINE KETONE NEGATIVE (NEGATIVE); URINE LEUK ESTERASE NEGATIVE (NEGATIVE); URINE NITRITE NEGATIVE (NEGATIVE); URINE PROTEIN NEGATIVE (NEGATIVE); URINE UROBILINOGEN NEGATIVE mg/dL (0.2-1.0)
[2018-05-02] MEDS: ACETAMINOPHEN 325 MG TABLET (FP) PO PRN (17:47)
[2018-05-02] MEDS: THIAMINE HCL 100 MG TABLET (FP) PO SCH (21:13)
[2018-05-02] MEDS: LIDOCAINE PATCH REMOVAL MC SCH (21:13)
[2018-05-03] MEDS ORDERED: METHADONE HCL 40 MG DISPERSABLE TABLET ONE (03:16)
[2018-05-03] MEDS ORDERED: METHADONE HCL 10 MG TABLET ONE (03:16)
[2018-05-03] MEDS: TRIAMCINOLONE ACET 0.1% OINT 15 GM TUBE TP SCH ×3 (07:16→21:08)
[2018-05-03] MEDS: METHADONE 40 MG, METHADONE 20 MG PO SCH (07:17)
[2018-05-03] MEDS: IBUPROFEN 600 MG TABLET (FP) PO PRN (09:11)
[2018-05-03] MEDS: PRENATAL VITAMINS W/ FOLIC ACID TABLET (FP) PO SCH (10:09)
[2018-05-03] MEDS: LIDOCAINE 5% TOPICAL PATCH TP SCH (10:09)
[2018-05-03] MEDS ORDERED: COLLOIDAL OATMEAL 1 BAR EACH TP PRN (11:03)
--- NOTE | 2018-05-03 11:14 | PN ---
S Progress Note Note: PATIENT C/O INSOMNIA AND DRY SKIN. PATIENT STATES SHE HAS NOT BEEN SLEEPING FOR A FULL NIGHT SINCE ADMISSION. PATIENT CURRENTLY ORDERED MELATONIN PRN FOR INSOMNIA. Vital Signs Temperature 97.7 F 05/03/18 07:01 Pulse Rate 80 05/03/18 07:01 Respiratory Rate 18 05/03/18 07:01 Blood Pressure 116/80 05/03/18 07:01 O2 Sat by Pulse Oximetry (%) PE: ALERT AND ORIENTED X 3 SKIN +DRY PATCHES ON BOTH ARMS, WARM EYES: +PERRLA, EOMS INTACT BL EXT FULL ROM, NO VISIBLE EDEMA +ANXIOUS/RESTLESS A/P: INSOMNIA/ANXIETY DRY SKIN WILL D/C GABAPENTIN/FLEXERIL PER PATIENT REQUEST SHE STATES MEDS DO NOT HELP HER PAIN CONTINUE LIDOCAINE PATCH DAILY ADD VISTARIL 50MG PRN FOR ANXIETY/INSOMNIA AVEENO SOAP/VIT A/D OINTMENT FOR DRY SKIN CONTINUE TO MONITOR
[2018-05-03] MEDS ORDERED: MINERAL OIL/PETROLAT/WATER TOPICAL CREAM 113 GM JAR TP SCH (11:15)
[2018-05-03] MEDS: VITAMINS A AND D TOPICAL OINTMENT 60 GM TUBE TP SCH ×2 (12:55→21:07)
[2018-05-03] MEDS: GABAPENTIN 300 MG CAPSULE (FP) PO SCH ×2 (13:05→21:08)
[2018-05-03] MEDS: hydrOXYzine PAMOATE 50 MG CAPSULE (FP) PO PRN ×2 (13:08→21:08)
[2018-05-03] MEDS ORDERED: GABAPENTIN 300 MG CAPSULE (FP) PO SCH (14:00)
[2018-05-03] MEDS ORDERED: PT OWN MED DRAWER 7, Y5N ONE (14:12)
[2018-05-03] MEDS: THIAMINE HCL 100 MG TABLET (FP) PO SCH (21:07)
[2018-05-04] MEDS: VITAMINS A AND D TOPICAL OINTMENT 60 GM TUBE TP SCH ×4 (00:45→19:53)
[2018-05-04] MEDS ORDERED: METHADONE HCL 10 MG TABLET ONE (06:05)
[2018-05-04] MEDS ORDERED: METHADONE HCL 40 MG DISPERSABLE TABLET ONE (06:06)
[2018-05-04] MEDS: METHADONE 40 MG, METHADONE 20 MG PO SCH (07:26)
[2018-05-04] MEDS: TRIAMCINOLONE ACET 0.1% OINT 15 GM TUBE TP SCH ×3 (07:32→21:52)
[2018-05-04] MEDS: hydrOXYzine PAMOATE 50 MG CAPSULE (FP) PO PRN ×2 (07:32→19:52)
[2018-05-04] MEDS: GABAPENTIN 300 MG CAPSULE (FP) PO SCH ×2 (10:06→21:52)
[2018-05-04] MEDS: PRENATAL VITAMINS W/ FOLIC ACID TABLET (FP) PO SCH (10:06)
[2018-05-04] MEDS ORDERED: guaiFENesin 200 MG/10 ML 10 ML UNIT-DOSE CUPS PO PRN (10:46)
[2018-05-04] MEDS ORDERED: BENZOCAINE 20 % GEL TUBE MM PRN (10:48)
--- NOTE | 2018-05-04 10:55 | PN ---
[facility] Progress Note Note: PATIENT SEEN FOR C/O MOUTH SORES ON LEFT SIDE OF LOWER GUM LINE. PATIENT HAS + TOOTH DECAY AND MISSING TEETH. LEFT LOWER GUM LINE WITH MILDLY INFLAMED. NO VISIBLE SORES/LESIONS NOTED. WILL ORDER ORAGEL FOR SYMPTOM MANAGEMENT/PAIN. CONTINUE TO MONITOR CLINICALLY. Vital Signs Temperature 97.7 F 05/04/18 07:14 Pulse Rate 83 05/04/18 07:14 Respiratory Rate 18 05/04/18 07:14 Blood Pressure 108/72 05/04/18 07:14 O2 Sat by Pulse Oximetry (%)
[2018-05-04] MEDS: THIAMINE HCL 100 MG TABLET (FP) PO SCH (21:52)
[2018-05-05] MEDS: VITAMINS A AND D TOPICAL OINTMENT 60 GM TUBE TP SCH ×4 (00:11→18:25)
[2018-05-05] MEDS ORDERED: METHADONE HCL 10 MG TABLET ONE (03:18)
[2018-05-05] MEDS ORDERED: METHADONE HCL 40 MG DISPERSABLE TABLET ONE (03:18)
[2018-05-05] MEDS: TRIAMCINOLONE ACET 0.1% OINT 15 GM TUBE TP SCH ×3 (06:36→21:45)
[2018-05-05] MEDS: METHADONE 40 MG, METHADONE 20 MG PO SCH (06:36)
[2018-05-05] MEDS: hydrOXYzine PAMOATE 50 MG CAPSULE (FP) PO PRN ×3 (06:37→21:46)
[2018-05-05] MEDS: GABAPENTIN 300 MG CAPSULE (FP) PO SCH ×2 (09:08→21:44)
[2018-05-05] MEDS: PRENATAL VITAMINS W/ FOLIC ACID TABLET (FP) PO SCH (09:08)
--- NOTE | 2018-05-05 11:20 | PN ---
[facility] Progress Note Note: PATIENT'S CXR NEGATIVE FOR ABNORMALITIES. PATIENT REPORTS COUGH WITH YELLOW/ BROWN PHLEGM. NO FEVER, SOB, CP REPORTED. LIKELY RELATED TO TOBACCO USE. WILL CONTINUE ROBITUSSIN PRN, ENCOURAGE ORAL FLUIDS AND CONTINUE TO MONITOR CLINICALLY. Vital Signs Temperature 97.1 F L 05/05/18 06:59 Pulse Rate 93 H 05/05/18 06:59 Respiratory Rate 18 05/05/18 06:59 Blood Pressure 106/69 05/05/18 06:59 O2 Sat by Pulse Oximetry (%) Laboratory Tests 05/02/18 09:15 Urine Color Yellow Urine Appearance Slcloudy Urine pH 7.0 Ur Specific [place] 1.020 Urine Protein Negative Urine Glucose (UA) Negative Urine Ketones Negative Urine Blood Negative Urine Nitrite Negative Urine Bilirubin Negative Urine Urobilinogen Negative Ur Leukocyte Esterase Negative
--- NOTE | 2018-05-05 11:34 | PN ---
[facility] Progress Note Note: CXR REVIEWED. IMPRESSION:NORMAL CHEST EXCEPT FOR SCOLIOSIS ON CXR. Vital Signs 05/05/18 06:59 Temperature 97.1 F L Pulse Rate 93 H Respiratory 18 Rate Blood Pressure 106/69 Laboratory Tests 05/02/18 09:15 Urine Color Yellow Urine Appearance Slcloudy Urine pH 7.0 Ur Specific [employer] 1.020 Urine Protein Negative Urine Glucose (UA) Negative Urine Ketones Negative Urine Blood Negative Urine Nitrite Negative Urine Bilirubin Negative Urine Urobilinogen Negative Ur Leukocyte Esterase Negative
[2018-05-05] MEDS ORDERED: PT OWN MED DRAWER 7, Y5N ONE ×2 (12:03→15:07)
--- NOTE | 2018-05-05 16:05 | PN ---
Psychiatric Progress Note Vital Signs: Vital Signs Period Temp Pulse Resp BP Sys/Barton Pulse Ox Last 24 Hr 97.1 F 93 18-18 106/69 Date of Session: 05/05/18 Chief Complaint:: Eric not sleeping well,i need my medications back. HPI: Patient addressed Alcohol and Opioid dependence (MMTP 60 mg) comorbid with Bipolar disorder. ROS: Significant for BA. Current Medications: Active Medications Generic Name Dose Route Start Last Admin Trade Name Freq PRN Reason Stop Dose Admin Acetaminophen 650 mg 04/30/18 16:01 05/02/18 17:47 Tylenol - PO 650 mg Q4H PRN Administration FEVER Al Hydroxide/Mg Hydroxide 30 ml 04/30/18 16:01 Mylanta Oral Suspension - PO Q6H PRN DYSPEPSIA Benzocaine 1 applic 05/04/18 10:48 Anbesol - MM Q6H PRN ORAL PAIN/MOUTH SORES Colloidal Oatmeal 1 applic 05/03/18 11:03 05/04/18 10:08 Aveeno Soap - TP 1 bar DAILY PRN Administration HYGEINE Eucalyptus/Menthol/Phenol/Sorbitol 1 each 04/30/18 16:01 Cepastat Lozenge - MM Q4H PRN SORE THROAT Gabapentin 600 mg 05/03/18 11:30 05/05/18 09:08 Neurontin - PO 600 mg BID NORIS Administration Guaifenesin 10 ml 05/04/18 10:46 05/05/18 10:25 Robitussin - PO 10 ml Q6H PRN Administration COUGH Hydroxyzine Pamoate 50 mg 05/03/18 11:06 05/05/18 14:53 Vistaril - PO 50 mg Q6H PRN Administration ANXIETY Ibuprofen 600 mg 05/01/18 09:22 05/03/18 09:11 Motrin - PO 600 mg Q6H PRN Administration PAIN LEVEL 6-10 Magnesium Citrate 300 ml 04/30/18 16:01 Citroma - PO Q48H PRN CONSTIPATION Magnesium Hydroxide 30 ml 04/30/18 16:01 Milk Of Magnesia - PO DAILY PRN CONSTIPATION Melatonin 5 mg 04/30/18 22:00 05/02/18 21:13 Melatonin PO 5 mg HS PRN Administration INSOMNIA Methadone HCl 40 mg/ Methadone 60 mg 05/01/18 09:30 05/05/18 06:36 HCl 20 mg PO 60 mg DAILY@0600 NORIS Administration Nicotine Polacrilex 2 mg 04/30/18 16:01 Nicorette Gum - BC Q2H PRN NICOTINE REPLACEMENT RX Multivit/Folic Acid/Iron 1 tab 05/01/18 10:00 05/05/18 09:08 Vitamins (Sjr) - PO 1 tab DAILY NORIS Administration Thiamine HCl 100 mg 04/30/18 22:00 05/04/18 21:52 Vitamin B1 - PO 100 mg HS NORIS Administration Triamcinolone Acetonide 1 applic 04/30/18 22:00 05/05/18 14:37 Aristocort 0.1% Ointment - TP 1 applic TID NORIS Administration Vitamin A/Vitamin D 1 applic 05/03/18 12:00 05/05/18 12:02 Vitamin A & D Top Oint - TP 1 applic Q6HPO NORIS Administration Current Side Effect: No Lab tests ordered: No Lab tests reviewed: Yes Provider note:: Chart was revuewed,patient was seen in my office to address mood instability,irritability,depression,insomnia.Her medication history has been discussed with the patient.Consider her unreliability proposal writer called the patient's pharmacy,confirmed her psychotropic medications:Abilify 5 mg po daily, Prozac 20 mg po daily and Ambien 5 mg po hs. Supportive therapy provided. Mental Status Exam - Mental Status Exam Alert and Oriented to: Time, Place, Person Cognitive Function: Grossly Intact Patient Appearance: Unkempt Mood: Anxious, Irritable Affect: Mood Congruent, Labile Patient Behavior: Restless, Distractible, Impulsive Speech Pattern: Clear Voice Loudness: Mildly Loud Thought Process: Goal Oriented Thought Disorder: Not Present Hallucinations: Denies Suicidal Ideation: Denies Homicidal Ideation: Denies Insight/Judgement: Fair Sleep: Difficulty falling asleep Appetite: Good Muscle strength/Tone: Normal Gait/Station: Normal Psychiatric Treatment Plan - Problem List (1) Alcohol dependence Qualifiers: Substance use status: in remission Qualified Code(s): F10.21 - Alcohol dependence, in remission (2) Asthma Qualifiers: Asthma severity: mild (3) Nicotine dependence Qualifiers: Nicotine product type: cigarettes
[2018-05-05] MEDS: ARIPiprazole 5 MG TABLET (FP) PO SCH (18:25)
[2018-05-05] MEDS: FLUoxetine HCL 20 MG CAPSULE (FP) PO SCH (18:25)
[2018-05-05] MEDS: THIAMINE HCL 100 MG TABLET (FP) PO SCH (21:44)
[2018-05-05] MEDS: MIRTAZAPINE 15 MG TABLET (FP) PO SCH (21:45)
[2018-05-06] MEDS: VITAMINS A AND D TOPICAL OINTMENT 60 GM TUBE TP SCH ×5 (01:12→23:58)
[2018-05-06] MEDS ORDERED: METHADONE HCL 10 MG TABLET ONE (04:32)
[2018-05-06] MEDS ORDERED: METHADONE HCL 40 MG DISPERSABLE TABLET ONE (04:32)
[2018-05-06] MEDS: METHADONE 40 MG, METHADONE 20 MG PO SCH (06:54)
[2018-05-06] MEDS: TRIAMCINOLONE ACET 0.1% OINT 15 GM TUBE TP SCH ×3 (06:55→22:29)
[2018-05-06] MEDS: hydrOXYzine PAMOATE 50 MG CAPSULE (FP) PO PRN ×2 (06:58→14:28)
[2018-05-06] MEDS: GABAPENTIN 300 MG CAPSULE (FP) PO SCH ×2 (09:53→17:55)
[2018-05-06] MEDS: PRENATAL VITAMINS W/ FOLIC ACID TABLET (FP) PO SCH (09:53)
[2018-05-06] MEDS: ACETAMINOPHEN 325 MG TABLET (FP) PO PRN (09:57)
[2018-05-06] MEDS: ARIPiprazole 5 MG TABLET (FP) PO SCH (09:58)
[2018-05-06] MEDS: FLUoxetine HCL 20 MG CAPSULE (FP) PO SCH (09:58)
[2018-05-06] MEDS ORDERED: PT OWN MED DRAWER 7, Y5N ONE ×3 (12:58→22:27)
[2018-05-06] MEDS: IBUPROFEN 600 MG TABLET (FP) PO PRN (22:28)
[2018-05-06] MEDS: THIAMINE HCL 100 MG TABLET (FP) PO SCH (22:29)
[2018-05-06] MEDS: MIRTAZAPINE 15 MG TABLET (FP) PO SCH (22:29)
[2018-05-07] MEDS ORDERED: METHADONE HCL 10 MG TABLET ONE (05:53)
[2018-05-07] MEDS ORDERED: PT OWN MED DRAWER 7, Y5N ONE (05:54)
[2018-05-07] MEDS ORDERED: METHADONE HCL 40 MG DISPERSABLE TABLET ONE (05:54)
[2018-05-07] MEDS: TRIAMCINOLONE ACET 0.1% OINT 15 GM TUBE TP SCH ×3 (06:41→21:25)
[2018-05-07] MEDS: VITAMINS A AND D TOPICAL OINTMENT 60 GM TUBE TP SCH ×3 (06:41→18:00)
[2018-05-07] MEDS: METHADONE 40 MG, METHADONE 20 MG PO SCH (06:43)
[2018-05-07] MEDS: hydrOXYzine PAMOATE 50 MG CAPSULE (FP) PO PRN (06:47)
[2018-05-07] MEDS: IBUPROFEN 600 MG TABLET (FP) PO PRN ×3 (07:43→21:25)
[2018-05-07] MEDS: ARIPiprazole 5 MG TABLET (FP) PO SCH (10:15)
[2018-05-07] MEDS: FLUoxetine HCL 20 MG CAPSULE (FP) PO SCH (10:15)
[2018-05-07] MEDS: GABAPENTIN 300 MG CAPSULE (FP) PO SCH ×2 (10:16→18:00)
[2018-05-07] MEDS: PRENATAL VITAMINS W/ FOLIC ACID TABLET (FP) PO SCH (10:16)
--- NOTE | 2018-05-07 12:51 | PN ---
Psychiatric Progress Note Vital Signs: Vital Signs Period Temp Pulse Resp BP Sys/Barton Pulse Ox Last 24 Hr 97.9 F 88 16-18 117/81 Date of Session: 05/07/18 Chief Complaint:: I am aggravated easily,sleep is big problem. HPI: Opioid,Alcohol dependence comorbid with Substance induced mood disorder. ROS: BA. Current Medications: Active Medications Generic Name Dose Route Start Last Admin Trade Name Freq PRN Reason Stop Dose Admin Acetaminophen 650 mg 04/30/18 16:01 05/06/18 09:57 Tylenol - PO 650 mg Q4H PRN Administration FEVER Al Hydroxide/Mg Hydroxide 30 ml 04/30/18 16:01 Mylanta Oral Suspension - PO Q6H PRN DYSPEPSIA Aripiprazole 5 mg 05/05/18 16:15 05/07/18 10:15 Abilify PO Not Given DAILY NORIS Benzocaine 1 applic 05/04/18 10:48 Anbesol - MM Q6H PRN ORAL PAIN/MOUTH SORES Colloidal Oatmeal 1 applic 05/03/18 11:03 05/04/18 10:08 Aveeno Soap - TP 1 bar DAILY PRN Administration HYGEINE Eucalyptus/Menthol/Phenol/Sorbitol 1 each 04/30/18 16:01 Cepastat Lozenge - MM Q4H PRN SORE THROAT Fluoxetine HCl 20 mg 05/05/18 16:15 05/07/18 10:15 Prozac - PO Not Given DAILY NORIS Gabapentin 600 mg 05/06/18 18:00 05/07/18 10:16 Neurontin - PO 600 mg BID@1000,1800 NORIS Administration Guaifenesin 10 ml 05/04/18 10:46 05/05/18 10:25 Robitussin - PO 10 ml Q6H PRN Administration COUGH Hydroxyzine Pamoate 50 mg 05/03/18 11:06 05/07/18 06:47 Vistaril - PO 50 mg Q6H PRN Administration ANXIETY Ibuprofen 600 mg 05/01/18 09:22 05/07/18 07:43 Motrin - PO 600 mg Q6H PRN Administration PAIN LEVEL 6-10 Magnesium Citrate 300 ml 04/30/18 16:01 Citroma - PO Q48H PRN CONSTIPATION Magnesium Hydroxide 30 ml 04/30/18 16:01 Milk Of Magnesia - PO DAILY PRN CONSTIPATION Melatonin 5 mg 04/30/18 22:00 05/02/18 21:13 Melatonin PO 5 mg HS PRN Administration INSOMNIA Methadone HCl 40 mg/ Methadone 60 mg 05/08/18 06:00 HCl 20 mg PO 05/14/18 05:59 DAILY@0600 NORIS Mirtazapine 15 mg 05/05/18 22:00 05/06/18 22:29 Remeron - PO Not Given HS NORIS Nicotine Polacrilex 2 mg 04/30/18 16:01 Nicorette Gum - BC Q2H PRN NICOTINE REPLACEMENT RX Multivit/Folic Acid/Iron 1 tab 05/01/18 10:00 05/07/18 10:16 Vitamins (Sjr) - PO 1 tab DAILY NORIS Administration Thiamine HCl 100 mg 04/30/18 22:00 05/06/18 22:29 Vitamin B1 - PO 100 mg HS NORIS Administration Triamcinolone Acetonide 1 applic 04/30/18 22:00 05/07/18 06:41 Aristocort 0.1% Ointment - TP 1 applic TID NORIS Administration Vitamin A/Vitamin D 1 applic 05/03/18 12:00 05/07/18 06:41 Vitamin A & D Top Oint - TP 1 applic Q6HPO NORIS Administration Current Side Effect: No Lab tests ordered: No Lab tests reviewed: Yes Provider note:: Patient was seen in my office to address sleeping difficulties, inavbility to fall asleep and stay in sleep,Patient reports that Remeron makes her feel drowsy. Current medications has been discussed with the patient including side effctes,benefits and dose a adjustment.According to the patient all medications make her drowsy.Abilify 5 mg po daily and Remeron 15 mg po hs will be discontinued. Supportive therapy provided. Mental Status Exam - Mental Status Exam Alert and Oriented to: Time, Place, Person Cognitive Function: Grossly Intact Patient Appearance: Disheveled Mood: Sad, Anxious, Irritable Affect: Mood Congruent, Labile Patient Behavior: Sedated, Distractible, Cooperative Speech Pattern: Clear Voice Loudness: Normal Thought Process: Goal Oriented Thought Disorder: Not Present Hallucinations: Denies Suicidal Ideation: Denies Homicidal Ideation: Denies Insight/Judgement: Fair Sleep: Difficulty falling asleep Appetite: Good Muscle strength/Tone: Normal Gait/Station: Normal Psychiatric Treatment Plan - Problem List (1) Alcohol dependence Qualifiers: Substance use status: in remission Qualified Code(s): F10.21 - Alcohol dependence, in remission (2) Asthma Qualifiers: Asthma severity: mild (3) Nicotine dependence Qualifiers: Nicotine product type: cigarettes
[2018-05-07] MEDS: THIAMINE HCL 100 MG TABLET (FP) PO SCH (21:23)
[2018-05-07] MEDS ORDERED: SUVOREXANT 10 MG TABLET PO PRN (22:00)
[2018-05-08] MEDS: VITAMINS A AND D TOPICAL OINTMENT 60 GM TUBE TP SCH ×4 (00:15→17:15)
[2018-05-08] MEDS ORDERED: METHADONE HCL 10 MG TABLET ONE (05:56)
[2018-05-08] MEDS ORDERED: METHADONE HCL 40 MG DISPERSABLE TABLET ONE (05:56)
[2018-05-08] MEDS: TRIAMCINOLONE ACET 0.1% OINT 15 GM TUBE TP SCH ×3 (06:26→21:59)
[2018-05-08] MEDS: METHADONE 40 MG, METHADONE 20 MG PO SCH (06:27)
[2018-05-08] MEDS: hydrOXYzine PAMOATE 50 MG CAPSULE (FP) PO PRN ×3 (06:29→22:00)
[2018-05-08] MEDS: PRENATAL VITAMINS W/ FOLIC ACID TABLET (FP) PO SCH (10:16)
[2018-05-08] MEDS: GABAPENTIN 300 MG CAPSULE (FP) PO SCH ×2 (10:16→17:15)
[2018-05-08] MEDS: FLUoxetine HCL 20 MG CAPSULE (FP) PO SCH (10:17)
[2018-05-08 11:16] LABS: ALBUMIN 3.6 g/dl (3.4-5.0); ALK PHOS 133 U/L (45-117); ANION GAP 4 MMOL/L (8-16); BILIRUBIN,TOTAL 0.2 mg/dL (0.2-1); BLOOD UREA NITROGEN 18 mg/dL (7-18); CALCIUM 8.7 mg/dL (8.5-10.1); CHLORIDE 102 mmol/L (98-107); CO2 35 mmol/L (21-32); CREATININE 0.7 mg/dL (0.55-1.3); GLUCOSE,RANDOM 148 mg/dL (74-106); POTASSIUM 4.4 mmol/L (3.5-5.1); SGOT/AST 55 U/L (15-37); SGPT/ALT 98 U/L (13-61); SODIUM 141 mmol/L (136-145)
[2018-05-08] MEDS ORDERED: PT OWN MED DRAWER 7, Y5N ONE (11:46)
[2018-05-08] MEDS: THIAMINE HCL 100 MG TABLET (FP) PO SCH (21:59)
[2018-05-09] MEDS: VITAMINS A AND D TOPICAL OINTMENT 60 GM TUBE TP SCH ×5 (00:15→23:05)
[2018-05-09] MEDS: ACETAMINOPHEN 325 MG TABLET (FP) PO PRN ×2 (05:27→16:08)
[2018-05-09] MEDS ORDERED: METHADONE HCL 40 MG DISPERSABLE TABLET ONE (06:02)
[2018-05-09] MEDS ORDERED: METHADONE HCL 10 MG TABLET ONE (06:02)
[2018-05-09] MEDS ORDERED: PT OWN MED DRAWER 7, Y5N ONE (06:03)
[2018-05-09] MEDS: METHADONE 40 MG, METHADONE 20 MG PO SCH (06:37)
[2018-05-09] MEDS: TRIAMCINOLONE ACET 0.1% OINT 15 GM TUBE TP SCH ×3 (06:37→21:47)
[2018-05-09] MEDS: hydrOXYzine PAMOATE 50 MG CAPSULE (FP) PO PRN ×2 (06:38→19:29)
[2018-05-09] MEDS: GABAPENTIN 300 MG CAPSULE (FP) PO SCH ×2 (10:02→17:05)
[2018-05-09] MEDS: PRENATAL VITAMINS W/ FOLIC ACID TABLET (FP) PO SCH (10:02)
[2018-05-09] MEDS: FLUoxetine HCL 20 MG CAPSULE (FP) PO SCH (10:03)
[2018-05-09] MEDS: THIAMINE HCL 100 MG TABLET (FP) PO SCH (21:47)
[2018-05-10] MEDS ORDERED: METHADONE HCL 10 MG TABLET ONE (06:06)
[2018-05-10] MEDS ORDERED: METHADONE HCL 40 MG DISPERSABLE TABLET ONE (06:06)
[2018-05-10] MEDS ORDERED: PT OWN MED DRAWER 7, Y5N ONE ×2 (06:08→13:05)
[2018-05-10] MEDS: METHADONE 40 MG, METHADONE 20 MG PO SCH (06:46)
[2018-05-10] MEDS: VITAMINS A AND D TOPICAL OINTMENT 60 GM TUBE TP SCH ×4 (06:46→23:35)
[2018-05-10] MEDS: TRIAMCINOLONE ACET 0.1% OINT 15 GM TUBE TP SCH ×3 (06:46→21:51)
[2018-05-10] MEDS: hydrOXYzine PAMOATE 50 MG CAPSULE (FP) PO PRN ×3 (07:50→21:32)
[2018-05-10] MEDS: FLUoxetine HCL 20 MG CAPSULE (FP) PO SCH (10:16)
[2018-05-10] MEDS: PRENATAL VITAMINS W/ FOLIC ACID TABLET (FP) PO SCH (10:16)
[2018-05-10] MEDS: GABAPENTIN 300 MG CAPSULE (FP) PO SCH ×2 (10:16→17:34)
[2018-05-10] MEDS: IBUPROFEN 600 MG TABLET (FP) PO PRN (21:32)
[2018-05-10] MEDS: THIAMINE HCL 100 MG TABLET (FP) PO SCH (21:32)
[2018-05-11] MEDS ORDERED: METHADONE HCL 10 MG TABLET ONE (06:17)
[2018-05-11] MEDS ORDERED: METHADONE HCL 40 MG DISPERSABLE TABLET ONE (06:17)
[2018-05-11] MEDS: METHADONE 40 MG, METHADONE 20 MG PO SCH (06:32)
[2018-05-11] MEDS: TRIAMCINOLONE ACET 0.1% OINT 15 GM TUBE TP SCH (06:34)
[2018-05-11] MEDS: VITAMINS A AND D TOPICAL OINTMENT 60 GM TUBE TP SCH (06:35)
[2018-05-11 07:15] VITALS: BP 110/70; PULSE 82; TEMP 97.7
[2018-05-11] MEDS: PRENATAL VITAMINS W/ FOLIC ACID TABLET (FP) PO SCH (09:11)
[2018-05-11] MEDS: GABAPENTIN 300 MG CAPSULE (FP) PO SCH (09:11)
[2018-05-11] MEDS: FLUoxetine HCL 20 MG CAPSULE (FP) PO SCH (09:11)
--- NOTE | 2018-05-11 15:51 | PN ---
S Progress Note Note: PT COMPLETED REHAB AND DISCHARGED TODAY. PT MONIQUE REFERRED TO [facility] FOR CD AFTERCARE. PT REPORTS SHE HAS A PCP DR[facility] [place] [place]. PT IS ALSO ON THE [facility]. Vital Signs - 24 hr 05/11/18 05/11/18 05/11/18 00:30 03:30 07:14 Temperature 97.7 F Pulse Rate 82 Respiratory 18 18 16 Rate Blood Pressure 110/70 NAD MEDICALLY STABLE PLAN:FOLLOW UP WITH CD AFTERCARE AT [facility] ON 05/11/18 AT 11:00 A.M FOLLOW UP WITH PCP FOR MEDICAL MANAGEMENT WITHIN 1 WEEK AFTER DISCHARGE.
== END 2018-05-11 09:38 | disposition home or self-care (01) | DRG 772 ==
LOC: YASAS 13:19 → Y3E 17:16
PROVIDERS: ADMIT Neuromusculoskeletal Medicine & OMM; ATTEND Neuromusculoskeletal Medicine & OMM
PROC: HZ42ZZZ Group Counseling for Substance Abuse Treatment, Cognitive-Behavioral (ICD-10-PCS; principal; 2018-05-04)
DX: F10.20 Alcohol dependence, uncomplicated (principal); F11.20 Opioid dependence, uncomplicated; F17.210 Nicotine dependence, cigarettes, uncomplicated; F19.24 Other psychoactive substance dependence with psychoactive substance-induced mood disorder; I10 Essential (primary) hypertension; J45.909 Unspecified asthma, uncomplicated; G47.00 Insomnia, unspecified; R05 Cough; M12.9 Arthropathy, unspecified; L85.3 Xerosis cutis; R09.3 Abnormal sputum
CPT/HCPCS: 36415; 71046-TC-FY; 80053; 81003

== ENCOUNTER 2019-02-24 15:05 | Inpatient (IN) | payer OTHER ==
[2019-02-24 17:14] VITALS: BMI 29.9
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
[2019-02-24] MEDS ORDERED: MAG HYDROX/AL HYDROX/SIMETH 30 ML UNIT-DOSE CUP PO PRN (22:53)
[2019-02-24] MEDS ORDERED: MENTHOL/PHENOL 1 EACH UD MM PRN (22:53)
[2019-02-24] MEDS ORDERED: MELATONIN 5 MG TABLETS PO PRN (22:53)
[2019-02-24] MEDS ORDERED: ACETAMINOPHEN 325 MG TABLET (FP) PO PRN (22:53)
[2019-02-24] MEDS ORDERED: BISMUTH SUBSALICYLATE 524 MG/30 ML UD PO PRN (22:53)
[2019-02-24] MEDS ORDERED: MAGNESIUM CITRATE 300 ML BOTTLE PO PRN (22:53)
[2019-02-24] MEDS ORDERED: LORazepam 1 MG TABLET PO PRN (22:53)
[2019-02-24] MEDS ORDERED: MAGNESIUM HYDROX 2400MG/30ML ORAL SUSPENSION 30 ML CUP PO PRN (22:53)
[2019-02-24] MEDS ORDERED: ALBUTEROL SO4 8 GM HFA INHALER IH PRN (22:59)
[2019-02-25] MEDS: LORazepam 2 MG TABLET PO SCH ×6 (00:05→23:28)
[2019-02-25] MEDS: METHOCARBAMOL 500 MG TABLET PO PRN (07:03)
[2019-02-25] MEDS: hydrOXYzine PAMOATE 25 MG CAPSULE (FP) PO PRN (07:03)
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
[2019-02-25] MEDS ORDERED: METHADONE HCL 10 MG TABLET PO ONE (08:33)
[2019-02-25] MEDS ORDERED: METHADONE 40 MG, METHADONE 5 MG PO ONE (08:45)
[2019-02-25] MEDS ORDERED: METHADONE HCL 5 MG TABLET ONE (09:10)
[2019-02-25] MEDS ORDERED: METHADONE HCL 40 MG DISPERSABLE TABLET ONE (09:10)
--- NOTE | 2019-02-25 10:43 | PN ---
[facility] CIWA - CIWA Score Nausea/Vomitin-No Nausea/No Vomiting Muscle Tremors: 3 Anxiety: 2 Agitation: 3 Paroxysmal Sweats: 2 Orientation: 0-Oriented Tacttile Disturbances: 0-None Auditory Disturbances: 0-None Visual Disturbances: 0-None Headache: 0-None Present CIWA-Ar Total Score: 10 S Progress Note (SOAP) Subjective: irritable tired interrupted sleep body aches sweats Objective: 02/25/19 10:42 Vital Signs Temperature 98.2 F 02/25/19 10:04 Pulse Rate 72 02/25/19 10:04 Respiratory Rate 18 02/25/19 10:04 Blood Pressure 127/76 02/25/19 10:04 O2 Sat by Pulse Oximetry (%) labs ordered for tomorrow aaox3 ambulating no acute distress Assessment: 02/25/19 10:43 withdrawals Plan: continue detox increase fluids
[2019-02-25] MEDS: cloNIDine HCL 0.1 MG TABLET PO SCH ×3 (11:12→22:52)
[2019-02-25] MEDS: PRENATAL VITAMINS W/ FOLIC ACID TABLET (FP) PO SCH (11:12)
--- NOTE | 2019-02-25 11:31 | EKG ---
Test Reason : Blood Pressure : / mmHG Vent. Rate : 059 BPM Atrial Rate : 059 BPM P-R Int : 112 ms QRS Dur : 084 ms QT Int : 446 ms P-R-T Axes : 055 036 039 degrees QTc Int : 441 ms SINUS BRADYCARDIA INCOMPLETE RBBB WHEN COMPARED WITH ECG OF 18-MAR-2017 15:11, VENT. RATE HAS DECREASED BY 49 BPM Confirmed by YOGI GALLEGOS MD ([id number]) on 02/25/2019 11:31:20 AM Referred By: ROOPA Confirmed By:YOGI GALLEGOS MD
[2019-02-25] MEDS ORDERED: GABAPENTIN 300 MG CAPSULE (FP) PO ONE (17:45)
--- NOTE | 2019-02-25 17:45 | PN ---
[facility] Progress Note Note: per nursing , pt requesting Gabapentin from home med list . One-time order and re-eval in the a.m.
[2019-02-25] MEDS ORDERED: SUVOREXANT 10 MG TABLET PO PRN (22:00)
[2019-02-25] MEDS: THIAMINE HCL 100 MG TABLET (FP) PO SCH ×2 (22:42→22:52)
[2019-02-26] MEDS: IBUPROFEN 400 MG TABLET (FP) PO PRN (01:20)
[2019-02-26] MEDS: hydrOXYzine PAMOATE 25 MG CAPSULE (FP) PO PRN (02:15)
[2019-02-26] MEDS ORDERED: METHADONE HCL 40 MG DISPERSABLE TABLET ONE (04:55)
[2019-02-26] MEDS ORDERED: METHADONE HCL 5 MG TABLET ONE (04:56)
[2019-02-26] MEDS ORDERED: METHADONE HCL 40 MG DISPERSABLE TABLET PO SCH (06:00)
[2019-02-26] MEDS: METHADONE 40 MG, METHADONE 5 MG PO SCH (06:55)
[2019-02-26] MEDS: ACETAMINOPHEN 325 MG TABLET (FP) PO PRN (06:56)
[2019-02-26] MEDS: LORazepam 1 MG TABLET PO SCH ×3 (07:00→18:14)
[2019-02-26] MEDS: LORazepam 2 MG TABLET PO SCH (07:08)
[2019-02-26] MEDS ORDERED: ALBUTEROL SO4 2.5/IPRATROPIUM 0.5 INH SOL 3 ML VIAL.NEB. NEB PRN (10:24)
[2019-02-26] MEDS ORDERED: AZITHROMYCIN 250 MG TABLET PO ONE (11:00)
[2019-02-26] MEDS: PRENATAL VITAMINS W/ FOLIC ACID TABLET (FP) PO SCH (11:57)
[2019-02-26] MEDS: cloNIDine HCL 0.1 MG TABLET PO SCH ×2 (11:57→22:34)
[2019-02-26] MEDS: GABAPENTIN 300 MG CAPSULE (FP) PO SCH (17:22)
--- NOTE | 2019-02-26 17:26 | PN ---
[facility] CIWA - CIWA Score Nausea/Vomitin-No Nausea/No Vomiting Muscle Tremors: 2 Anxiety: 4-Mod. Anxious/Guarded Agitation: 3 Paroxysmal Sweats: 2 Orientation: 0-Oriented Tacttile Disturbances: 1-Very Mild Itch/Numbness Auditory Disturbances: 0-None Visual Disturbances: 2-Mild Sensitivity Headache: 0-None Present CIWA-Ar Total Score: 14 S Progress Note (SOAP) Subjective: Anxious, Tremors, Sweating. Patient reports frequent cough, productive with thick yellow-colored phlegm and nasal congestion X 4 days. Objective: PATIENT A & O X 3, OBSERVED AMBULATING ON DETOX UNIT UNASSISTED. IN NO ACUTE DISTRESS. LUNG SOUNDS AUSCULTATED CLEAR AND EQUAL BILATERALLY. 02/26/19 17:26 Vital Signs Temperature 97.1 F L 02/26/19 14:07 Pulse Rate 71 02/26/19 14:07 Respiratory Rate 16 02/26/19 14:07 Blood Pressure 119/81 02/26/19 14:07 O2 Sat by Pulse Oximetry (%) PATIENT REFUSED TO DETOX ADMISSION LABS DRAWN. 02/26/19 17:31 Assessment: 02/26/19 17:27 WITHDRAWAL SYMPTOMS. UPPER RESPIRATORY INFECTION. 02/26/19 17:31 Plan: CONTINUE DETOX. Z-PACK FOR URI. PRN ORAL ROBITUSSIN, DUONEB FOR COUGH.
--- NOTE | 2019-02-26 18:06 | PN ---
S Progress Note Note: teresa does not want ativan regien,would like regimen changed to valium
[2019-02-26] MEDS ORDERED: diazePAM 5 MG TABLET PO PRN (18:08)
[2019-02-26] MEDS: THIAMINE HCL 100 MG TABLET (FP) PO SCH (22:33)
[2019-02-26] MEDS: diazePAM 5 MG TABLET PO SCH (22:34)
[2019-02-27] MEDS ORDERED: LORazepam 0.5 MG TABLET PO PRN
[2019-02-27] MEDS: METHOCARBAMOL 500 MG TABLET PO PRN (03:04)
[2019-02-27] MEDS: IBUPROFEN 400 MG TABLET (FP) PO PRN (03:04)
[2019-02-27] MEDS ORDERED: METHADONE HCL 40 MG DISPERSABLE TABLET ONE (04:43)
[2019-02-27] MEDS ORDERED: METHADONE HCL 5 MG TABLET ONE (04:43)
[2019-02-27] MEDS ORDERED: LORazepam 0.5 MG TABLET PO SCH (05:00)
[2019-02-27] MEDS: diazePAM 5 MG TABLET PO SCH ×3 (08:18→22:27)
[2019-02-27] MEDS: cloNIDine HCL 0.1 MG TABLET PO SCH ×2 (10:53→22:27)
[2019-02-27] MEDS: METHADONE 40 MG, METHADONE 5 MG PO SCH (10:53)
[2019-02-27] MEDS: PRENATAL VITAMINS W/ FOLIC ACID TABLET (FP) PO SCH (10:54)
[2019-02-27] MEDS: AZITHROMYCIN 250 MG TABLET PO SCH (10:54)
[2019-02-27] MEDS: GABAPENTIN 300 MG CAPSULE (FP) PO PRN ×2 (11:31→22:30)
[2019-02-27] MEDS: GABAPENTIN 300 MG CAPSULE (FP) PO SCH (11:32)
--- NOTE | 2019-02-27 18:26 | PN ---
S CIWA - CIWA Score Nausea/Vomitin-Mild Nausea/No Vomiting Muscle Tremors: 2 Anxiety: 2 Agitation: 2 Paroxysmal Sweats: 2 Orientation: 0-Oriented Tacttile Disturbances: 0-None Auditory Disturbances: 0-None Visual Disturbances: 0-None Headache: 0-None Present CIWA-Ar Total Score: 9 S Progress Note (SOAP) Subjective: Chills, body ache, headache, back pain, interrupted sleep, anxious. Patient requesting her standing neurontin changed to prn so that she can request it. Objective: 02/27/19 18:24 Last Vital Signs Temp Pulse Resp BP Pulse Ox 97.7 F 63 18 116/71 02/27/19 18:07 02/27/19 18:07 02/27/19 18:07 02/27/19 18:07 No admission lab results available Assessment: 02/27/19 18:24 Withdrawal sxs Plan: Continue detox Encouraged PO water intake Neurontin 600mg bid changed to prn as per patient's request Admission labs reordered in AM
[2019-02-27] MEDS: ACETAMINOPHEN 325 MG TABLET (FP) PO PRN (18:35)
[2019-02-27] MEDS: THIAMINE HCL 100 MG TABLET (FP) PO SCH (22:27)
[2019-02-27] MEDS: guaiFENesin 200 MG/10 ML 10 ML UNIT-DOSE CUPS PO PRN (22:31)
[2019-02-28] MEDS ORDERED: METHADONE HCL 40 MG DISPERSABLE TABLET ONE (04:39)
[2019-02-28] MEDS ORDERED: METHADONE HCL 5 MG TABLET ONE (04:39)
[2019-02-28] MEDS ORDERED: LORazepam 0.5 MG TABLET PO ONE (05:00)
[2019-02-28] MEDS ORDERED: diazePAM 5 MG TABLET PO SCH (06:00)
[2019-02-28] MEDS: METHADONE 40 MG, METHADONE 5 MG PO SCH (06:04)
[2019-02-28] MEDS: IBUPROFEN 400 MG TABLET (FP) PO PRN ×2 (06:05→12:48)
[2019-02-28] MEDS: GABAPENTIN 300 MG CAPSULE (FP) PO PRN ×2 (06:12→12:49)
[2019-02-28] MEDS: guaiFENesin 200 MG/10 ML 10 ML UNIT-DOSE CUPS PO PRN (06:14)
[2019-02-28] MEDS: METHOCARBAMOL 500 MG TABLET PO PRN (08:52)
[2019-02-28] MEDS ORDERED: LIDOCAINE 5% TOPICAL PATCH TP SCH (10:00)
[2019-02-28] MEDS: PRENATAL VITAMINS W/ FOLIC ACID TABLET (FP) PO SCH (10:11)
--- NOTE | 2019-02-28 10:11 | DS ---
[facility] Detox Discharge Summary Admission Date: 02/24/19 Discharge Date: 02/28/19 - History Present History: Alcohol Dependence, Cannabis Dependence, Cocaine Dependence, Opioid Dependence - Physical Exam Results Vital Signs: Vital Signs Temperature 97.7 F 02/28/19 08:36 Pulse Rate 66 02/28/19 08:36 Respiratory Rate 18 02/28/19 08:36 Blood Pressure 121/71 02/28/19 08:36 O2 Sat by Pulse Oximetry (%) Pertinent Admission Physical Exam Findings: Vital Signs Temperature 97.7 F 02/28/19 08:36 Pulse Rate 66 02/28/19 08:36 Respiratory Rate 18 02/28/19 08:36 Blood Pressure 121/71 02/28/19 08:36 O2 Sat by Pulse Oximetry (%) aaox3 ambulating no acute distress - Treatment Hospital Course: Detox Protocol Followed, Detoxed Safely, Responded well, Discharged Condition Good, Rehab Referral Accepted Patient has Accepted a Rehab Referral to: pt [facility] - Medication Discharge Medications: Ambulatory Orders Albuterol Sulfate Inhaler - [Ventolin Hfa Inhaler -] 2 inh PO Q4H PRN 04/30/18 Gabapentin [Neurontin -] 600 mg PO BID@1000,1800 #30 capsule 05/11/18 Clonidine HCl 0.3 mg PO BID 02/24/19 Divalproex Sodium [Depakote] 250 mg PO DAILY 02/24/19 Fluoxetine HCl [Prozac] 40 mg PO DAILY 02/24/19 Zolpidem Tartrate [Ambien] 10 mg PO HS 02/24/19 - Diagnosis (1) Alcohol dependence with uncomplicated withdrawal Current Visit: Yes Status: Chronic (2) Cocaine dependence Current Visit: Yes Status: Chronic Qualifiers: Substance use status: uncomplicated Qualified Code(s): F14.20 - Cocaine dependence, uncomplicated (3) HTN (hypertension) Current Visit: Yes Status: Chronic Qualifiers: Hypertension type: essential hypertension Qualified Code(s): I10 - Essential (primary) hypertension (4) Substance-induced sleep disorder Current Visit: Yes Status: Acute (5) Opioid dependence on agonist therapy Current Visit: Yes Status: Chronic (6) Opioid dependence with withdrawal Current Visit: Yes Status: Chronic (7) PPD positive Current Visit: Yes Status: Resolved (8) Abrasion of right orbit Current Visit: No Status: Acute Qualifiers: Encounter type: subsequent encounter Qualified Code(s): S00.211D - Abrasion of right eyelid and periocular area, subsequent encounter (9) Eczema Current Visit: No Status: Acute (10) Elevated blood pressure reading without diagnosis of hypertension Current Visit: No Status: Acute (11) Insomnia Current Visit: No Status: Acute (12) Opioid dependence Current Visit: Yes Status: Chronic Qualifiers: Substance use status: uncomplicated Qualified Code(s): F11.20 - Opioid dependence, uncomplicated (13) Subconjunctival hemorrhage of right eye Current Visit: No Status: Acute (14) Substance induced mood disorder Current Visit: No Status: Acute (15) Anemia Current Visit: No Status: Chronic (16) Asthma Current Visit: No Status: Chronic Qualifiers: Asthma severity: mild (17) Chronic low back pain Current Visit: No Status: Chronic Qualifiers: Back pain laterality: midline (18) Cocaine abuse Current Visit: No Status: Chronic (19) Nicotine dependence Current Visit: No Status: Chronic Qualifiers: Nicotine product type: cigarettes (20) Non-compliance Current Visit: No Status: Chronic (21) Opioid dependence on agonist therapy Current Visit: No Status: Chronic - AMA Did Patient Leave Against Medical Advice: No
[2019-02-28] MEDS: AZITHROMYCIN 250 MG TABLET PO SCH ×2 (10:12→10:16)
[2019-02-28] MEDS: cloNIDine HCL 0.1 MG TABLET PO SCH (10:12)
[2019-02-28 11:06] LABS: BASO % 0.4 % (0-2.0); EOS % 2.1 % (0-4.5); HEMATOCRIT 41.3 % (32.4-45.2); HEMOGLOBIN 13.7 GM/dL (10.7-15.3); LYMPH % 40.6 % (8-40); MCHC 33.1 g/dl (32.0-36.0); MEAN CELL VOLUME 99.8 fl (80-96); MEAN PLT VOLUME 9.4 fl (7.5-11.1); MONO % 8.3 % (3.8-10.2); NEUT % 48.6 % (42.8-82.8); PLATELET COUNT 256 K/MM3 (134-434); RBC 4.14 M/mm3 (3.60-5.2); RDW 13.6 % (11.6-15.6); WHITE BLOOD COUNT 7.3 K/mm3 (4.0-10.0)
[2019-02-28 11:18] LABS: ALBUMIN 3.7 g/dl (3.4-5.0); BILIRUBIN,TOTAL 0.4 mg/dL (0.2-1); BLOOD UREA NITROGEN 17.8 mg/dL (7-18); CALCIUM 9.5 mg/dL (8.5-10.1); CREATININE 0.8 mg/dL (0.55-1.3); POTASSIUM 4.4 mmol/L (3.5-5.1); TOT PROT 6.8 g/dl (6.4-8.2)
[2019-02-28 12:05] VITALS: TEMP 97.9
[2019-02-28 14:39] VITALS: BP 108/76; PULSE 65
[2019-02-28] MEDS ORDERED: LIDOCAINE PATCH REMOVAL MC SCH (22:00)
[2019-03-01] MEDS ORDERED: diazePAM 5 MG TABLET PO ONE (06:00)
== END 2019-02-28 14:59 | disposition other institution (70) | DRG 773 ==
LOC: YASAS 15:05 → Y6N 23:14
PROVIDERS: ADMIT Allergy & Immunology; ATTEND Allergy & Immunology
PROC: HZ2ZZZZ Detoxification Services for Substance Abuse Treatment (ICD-10-PCS; principal; 2019-02-24)
DX: F10.230 Alcohol dependence with withdrawal, uncomplicated (principal); F11.23 Opioid dependence with withdrawal; F14.20 Cocaine dependence, uncomplicated; F12.20 Cannabis dependence, uncomplicated; F17.210 Nicotine dependence, cigarettes, uncomplicated; F19.282 Other psychoactive substance dependence with psychoactive substance-induced sleep disorder; F19.24 Other psychoactive substance dependence with psychoactive substance-induced mood disorder; I10 Essential (primary) hypertension; J45.20 Mild intermittent asthma, uncomplicated; H11.31 Conjunctival hemorrhage, right eye; G47.00 Insomnia, unspecified; L30.9 Dermatitis, unspecified; D64.9 Anemia, unspecified; M54.5 Low back pain; G89.29 Other chronic pain; R03.0 Elevated blood-pressure reading, without diagnosis of hypertension; R76.11 Nonspecific reaction to tuberculin skin test without active tuberculosis; Z91.018 Allergy to other foods; Z91.19 Patient's noncompliance with other medical treatment and regimen
CPT/HCPCS: 36415; 71046-TC-FY; 80053; 85025; 86593; 93005; 93010; J0735

== ENCOUNTER 2019-02-28 15:06 | Inpatient (IN) | payer OTHER ==
--- NOTE | 2019-02-28 11:58 | HP ---
[facility] Rehab Assess/Revision - Admission History Admitted to Rehab from[facility] - Findings Detox History & Physical reviewed: Yes Concur with findings: Yes Inpatient Rehab Admission - Rehab Decision to Admit Inpatient rehab admission?: Yes - Initial Determination Are CD services needed?: Yes Free of communicable disease: Yes Not in need of hospitalization: Yes - Rehab Admission Criteria Previous failed treatment: Yes Poor recovery environment: Yes Comorbidities: Yes Lacks judgement: Yes Patient is meeting Inpatient Rehab admission criteria:: Yes
[~2019-02-28 15:06] MED LIST: LOPERAMIDE HCL 2 MG CAPSULE PO PRN; MAG HYDROX/AL HYDROX/SIMETH 30 ML UNIT-DOSE CUP PO PRN; MAGNESIUM CITRATE 300 ML BOTTLE PO PRN; MAGNESIUM HYDROX 2400MG/30ML ORAL SUSPENSION 30 ML CUP PO PRN; MENTHOL/PHENOL 1 EACH UD MM PRN; NICOTINE POLACRILEX 4 MG GUM BUC PRN; P-EPHED 60MG/TRIPROLIDI 2.5MG TABLET PO PRN; SUVOREXANT 10 MG TABLET PO PRN; hydrOXYzine PAMOATE 50 MG CAPSULE (FP) PO PRN
[2019-02-28] MEDS: IBUPROFEN 400 MG TABLET (FP) PO PRN (16:39)
[2019-02-28] MEDS: GABAPENTIN 300 MG CAPSULE PO PRN (20:06)
[2019-02-28] MEDS: cloNIDine HCL 0.1 MG TABLET PO SCH (21:25)
[2019-02-28] MEDS: MELATONIN 5 MG TABLETS PO PRN (21:26)
[2019-02-28] MEDS: THIAMINE HCL 100 MG TABLET (FP) PO SCH (21:26)
[2019-02-28] MEDS: guaiFENesin 200 MG/10 ML 10 ML UNIT-DOSE CUPS PO PRN (23:03)
[2019-03-01] MEDS ORDERED: METHADONE HCL 40 MG DISPERSABLE TABLET ONE (05:31)
[2019-03-01] MEDS ORDERED: METHADONE HCL 5 MG TABLET ONE (05:32)
[2019-03-01] MEDS ORDERED: METHADONE HCL 10 MG TABLET PO SCH (06:00)
[2019-03-01] MEDS: METHADONE 40 MG, METHADONE 5 MG PO SCH (06:18)
[2019-03-01] MEDS: IBUPROFEN 400 MG TABLET (FP) PO PRN (06:18)
[2019-03-01] MEDS: GABAPENTIN 300 MG CAPSULE PO PRN ×2 (06:19→21:11)
[2019-03-01] MEDS: PRENATAL VITAMINS W/ FOLIC ACID TABLET (FP) PO SCH (10:07)
[2019-03-01] MEDS: NICOTINE 21 MG/24 HOURS TOPICAL PATCH TD SCH (10:07)
[2019-03-01] MEDS: LIDOCAINE 5% TOPICAL PATCH TP SCH (10:07)
[2019-03-01] MEDS: cloNIDine HCL 0.1 MG TABLET PO SCH ×2 (10:07→21:50)
[2019-03-01] MEDS: AZITHROMYCIN 250 MG TABLET PO SCH (10:07)
--- NOTE | 2019-03-01 10:20 | PN ---
S Progress Note (SOAP) Subjective: patient requesting Valium. States that she is"owed 3 days of Valium because she left detox early." States she is still going through withdrawal; her hands are shaking. She is also requesting an increase in her gabapentin and clonidine. States gabapentin is for arthritis and the clonidine is for her BP. She is also requesting PrEP; states she received through a amrit from her PCP. PMHx: 48 years old female with a long history of alcohol dependence. Patient has been in previous detox and reports about 6 years of sobriety. She has medical history of hypertension, asthma, anemia and arthritis. She is on Methadone 45mg tablet oral daily at [facility]. Objective: P/E General: No apparent distress HEENTM: normocephalic, sinus nontender, nares-clear. Lungs: clear Heart: s1 s2 ABD: soft, non-tender, +BS MSK: full weight bearing, ROM limited by pain Neurological CN 2-12 intact; no tremors noted. 03/01/19 10:18 03/01/19 10:26 03/01/19 10:27 Assessment: WD from ETOH Arthritis 03/01/19 10:29 Plan: Advised patient that she had vistaril available for feelings of anxiety, WD symptoms- patient refused. Offered her flexeril or roboxin for muscle pain, patient refused. Offered to change the dosing of gabapentin to every 8 hours or every 6 hours, the patient refused. Increased motrin to 600mg every 4 hours. Instructed patient that she would not be receiving valium while in rehab. Also advised patient that PrEP could not be confirmed and she could re-start it when she was discharged with her PCP. Patient requested benadryl cream for itchiness , will order.
[2019-03-01] MEDS: TRIAMCINOLONE ACET 0.1% OINT 15 GM TUBE TP SCH (11:31)
[2019-03-01] MEDS: ACETAMINOPHEN 325 MG TABLET (FP) PO PRN (11:50)
[2019-03-01] MEDS ORDERED: FLU VACCINE QUAD 60 MCG/0.5 ML (MDV 19-20) IM ONE ×2 (12:00→16:08)
--- NOTE | 2019-03-01 12:49 | PN ---
S Progress Note Note: Patient is now requesting benadryl po and robaxin. Benadryl topical and vistaril were discontinued. Patient aware.
[2019-03-01] MEDS: guaiFENesin 200 MG/10 ML 10 ML UNIT-DOSE CUPS PO PRN (13:46)
[2019-03-01] MEDS: METHOCARBAMOL 500 MG TABLET PO SCH ×3 (13:46→21:11)
[2019-03-01] MEDS: IBUPROFEN 600 MG TABLET (FP) PO PRN ×2 (16:57→21:15)
[2019-03-01] MEDS: diphenhydrAMINE HCL 25 MG CAPSULE (FP) PO PRN (16:59)
[2019-03-01] MEDS: LIDOCAINE PATCH REMOVAL MC SCH (21:12)
[2019-03-01] MEDS: THIAMINE HCL 100 MG TABLET (FP) PO SCH (21:12)
[2019-03-01] MEDS: MELATONIN 5 MG TABLETS PO PRN (23:45)
[2019-03-02] MEDS: diphenhydrAMINE HCL 25 MG CAPSULE (FP) PO PRN ×2 (02:28→21:32)
[2019-03-02] MEDS ORDERED: METHADONE HCL 5 MG TABLET ONE (05:55)
[2019-03-02] MEDS ORDERED: METHADONE HCL 40 MG DISPERSABLE TABLET ONE (05:55)
[2019-03-02] MEDS: METHADONE 40 MG, METHADONE 5 MG PO SCH (06:18)
[2019-03-02] MEDS: COLLOIDAL OATMEAL 1 BAR EACH TP PRN (06:20)
[2019-03-02] MEDS: IBUPROFEN 600 MG TABLET (FP) PO PRN ×2 (06:23→14:27)
[2019-03-02] MEDS: GABAPENTIN 300 MG CAPSULE PO PRN ×2 (06:23→21:30)
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
[2019-03-02] MEDS: METHOCARBAMOL 500 MG TABLET PO SCH ×4 (09:48→21:30)
[2019-03-02] MEDS: AZITHROMYCIN 250 MG TABLET PO SCH (09:49)
[2019-03-02] MEDS: PRENATAL VITAMINS W/ FOLIC ACID TABLET (FP) PO SCH (09:49)
[2019-03-02] MEDS: ACETAMINOPHEN 325 MG TABLET (FP) PO PRN ×2 (09:49→23:06)
[2019-03-02] MEDS: cloNIDine HCL 0.1 MG TABLET PO SCH ×2 (09:49→21:30)
[2019-03-02] MEDS: TRIAMCINOLONE ACET 0.1% OINT 15 GM TUBE TP SCH (09:51)
[2019-03-02] MEDS: LIDOCAINE 5% TOPICAL PATCH TP SCH (09:53)
[2019-03-02] MEDS: NICOTINE 21 MG/24 HOURS TOPICAL PATCH TD SCH (09:53)
[2019-03-02] MEDS: FLUoxetine HCL 20 MG CAPSULE PO SCH (11:24)
[2019-03-02] MEDS: DIVALPROEX SODIUM 250 MG TABLET E.C. PO SCH ×2 (11:24→21:30)
[2019-03-02] MEDS: LIDOCAINE PATCH REMOVAL MC SCH (21:30)
[2019-03-02] MEDS: MELATONIN 5 MG TABLETS PO PRN ×2 (21:31→23:07)
[2019-03-02] MEDS: THIAMINE HCL 100 MG TABLET (FP) PO SCH (21:31)
[2019-03-02] MEDS ORDERED: SUVOREXANT 10 MG TABLET PO PRN (22:00)
[2019-03-03] MEDS ORDERED: METHADONE HCL 40 MG DISPERSABLE TABLET ONE (05:33)
[2019-03-03] MEDS ORDERED: METHADONE HCL 5 MG TABLET ONE (05:33)
[2019-03-03] MEDS: METHADONE 40 MG, METHADONE 5 MG PO SCH (06:24)
[2019-03-03] MEDS: diphenhydrAMINE HCL 25 MG CAPSULE (FP) PO PRN ×2 (06:27→22:04)
[2019-03-03] MEDS: ACETAMINOPHEN 325 MG TABLET (FP) PO PRN (06:27)
[2019-03-03] MEDS: GABAPENTIN 300 MG CAPSULE PO PRN ×2 (06:27→22:05)
[2019-03-03] MEDS: guaiFENesin 200 MG/10 ML 10 ML UNIT-DOSE CUPS PO PRN (06:28)
[2019-03-03] MEDS: PRENATAL VITAMINS W/ FOLIC ACID TABLET (FP) PO SCH (09:52)
[2019-03-03] MEDS: METHOCARBAMOL 500 MG TABLET PO SCH ×2 (09:52→14:41)
[2019-03-03] MEDS: DIVALPROEX SODIUM 250 MG TABLET E.C. PO SCH ×2 (09:52→21:59)
[2019-03-03] MEDS: TRIAMCINOLONE ACET 0.1% OINT 15 GM TUBE TP SCH (09:53)
[2019-03-03] MEDS: NICOTINE 21 MG/24 HOURS TOPICAL PATCH TD SCH (09:53)
[2019-03-03] MEDS: FLUoxetine HCL 20 MG CAPSULE PO SCH (09:53)
[2019-03-03] MEDS: LIDOCAINE 5% TOPICAL PATCH TP SCH (09:53)
[2019-03-03] MEDS: cloNIDine HCL 0.1 MG TABLET PO SCH ×2 (09:53→21:59)
[2019-03-03] MEDS: AZITHROMYCIN 250 MG TABLET PO SCH (09:54)
[2019-03-03] MEDS ORDERED: SODIUM CHLORIDE NASAL SPRAY 44 ML BOTTLE NS PRN (14:26)
--- NOTE | 2019-03-03 14:26 | PN ---
BHS Progress Note (SOAP) Subjective: Patient with blood tinged sputum. PPD+, CXR is negative. Objective: 03/03/19 14:23 Vital Signs Period Temp Pulse Resp BP Sys/Barton Pulse Ox Last 24 Hr 97.3 F 68-80 18-20 118-149/79-88 P/E General- No apparent distress HEENTM: nares: clear, no bleeding or blockage. Teeth/gums: no bleeding, Throat: clear, no exudate, bleeding,erythema Neck: supple Lungs: clear Heart: s1 s2 Abd: +BS Assessment: dry sinus 03/03/19 14:26 Plan: will order ocean spray
[2019-03-03] MEDS: IBUPROFEN 600 MG TABLET (FP) PO PRN ×2 (14:40→18:04)
--- NOTE | 2019-03-03 14:41 | PN ---
BHS Progress Note Note: Patient refusing fingerstick. Requesting that all medications be removed from the orders except for motrin. Patient was informed that she can refuse any medications that she does not want.
[2019-03-03] MEDS: METHOCARBAMOL 750 MG TABLET PO SCH ×2 (15:25→22:03)
[2019-03-03] MEDS: THIAMINE HCL 100 MG TABLET (FP) PO SCH (21:59)
[2019-03-03] MEDS: LIDOCAINE PATCH REMOVAL MC SCH (22:01)
[2019-03-03] MEDS: ALBUTEROL SO4 HFA INHALER IH PRN (23:27)
[2019-03-04] MEDS ORDERED: METHADONE HCL 5 MG TABLET ONE (05:31)
[2019-03-04] MEDS ORDERED: METHADONE HCL 40 MG DISPERSABLE TABLET ONE (05:31)
[2019-03-04] MEDS: METHOCARBAMOL 750 MG TABLET PO SCH ×3 (06:30→22:02)
[2019-03-04] MEDS: METHADONE 40 MG, METHADONE 5 MG PO SCH (06:30)
[2019-03-04] MEDS: GABAPENTIN 300 MG CAPSULE PO PRN ×3 (06:31→22:01)
[2019-03-04] MEDS: IBUPROFEN 600 MG TABLET (FP) PO PRN ×3 (06:31→18:53)
[2019-03-04] MEDS: ALBUTEROL SO4 HFA INHALER IH PRN (06:33)
[2019-03-04] MEDS: FLUoxetine HCL 20 MG CAPSULE PO SCH (10:31)
[2019-03-04] MEDS: cloNIDine HCL 0.1 MG TABLET PO SCH ×2 (10:32→22:01)
[2019-03-04] MEDS: DIVALPROEX SODIUM 250 MG TABLET E.C. PO SCH ×2 (10:32→22:02)
[2019-03-04] MEDS: PRENATAL VITAMINS W/ FOLIC ACID TABLET (FP) PO SCH (10:32)
[2019-03-04] MEDS: LIDOCAINE 5% TOPICAL PATCH TP SCH (10:36)
[2019-03-04] MEDS: NICOTINE 21 MG/24 HOURS TOPICAL PATCH TD SCH (10:36)
[2019-03-04] MEDS: TRIAMCINOLONE ACET 0.1% OINT 15 GM TUBE TP SCH (10:36)
[2019-03-04] MEDS ORDERED: PT OWN MED DRAWER 7, Y5N ONE (19:34)
[2019-03-04] MEDS: LIDOCAINE PATCH REMOVAL MC SCH (22:02)
[2019-03-04] MEDS: THIAMINE HCL 100 MG TABLET (FP) PO SCH (22:02)
[2019-03-04] MEDS: MELATONIN 5 MG TABLETS PO PRN (22:02)
[2019-03-05] MEDS: IBUPROFEN 600 MG TABLET (FP) PO PRN ×3 (03:14→17:53)
[2019-03-05] MEDS ORDERED: METHADONE HCL 40 MG DISPERSABLE TABLET ONE (05:57)
[2019-03-05] MEDS ORDERED: METHADONE HCL 5 MG TABLET ONE (05:58)
[2019-03-05] MEDS: METHADONE 40 MG, METHADONE 5 MG PO SCH (06:32)
[2019-03-05] MEDS: GABAPENTIN 300 MG CAPSULE PO PRN ×2 (06:32→21:41)
[2019-03-05] MEDS: METHOCARBAMOL 750 MG TABLET PO SCH ×3 (06:32→21:42)
[2019-03-05] MEDS ORDERED: PT OWN MED DRAWER 7, Y5N ONE (08:32)
[2019-03-05] MEDS: LIDOCAINE 5% TOPICAL PATCH TP SCH (10:05)
[2019-03-05] MEDS: cloNIDine HCL 0.1 MG TABLET PO SCH ×2 (10:05→21:41)
[2019-03-05] MEDS: TRIAMCINOLONE ACET 0.1% OINT 15 GM TUBE TP SCH (10:05)
[2019-03-05] MEDS: PRENATAL VITAMINS W/ FOLIC ACID TABLET (FP) PO SCH (10:05)
[2019-03-05] MEDS: DIVALPROEX SODIUM 250 MG TABLET E.C. PO SCH ×2 (10:05→21:42)
[2019-03-05] MEDS: FLUoxetine HCL 20 MG CAPSULE PO SCH (10:05)
[2019-03-05] MEDS: NICOTINE 21 MG/24 HOURS TOPICAL PATCH TD SCH (10:05)
--- NOTE | 2019-03-05 16:04 | PN ---
Sheryl Progress Note Note: Psychiatry Attending's note : Nurse Rosa Garcia called : Needed renewal order for suvorexant. Chart reviewed. Dr Ray's note is appreciated. Medication is confirmed. No report of adverse effects. Belsomra 10 mg po hs prn. Order entered.
[2019-03-05] MEDS: THIAMINE HCL 100 MG TABLET (FP) PO SCH (21:41)
[2019-03-05] MEDS: LIDOCAINE PATCH REMOVAL MC SCH (21:42)
[2019-03-05] MEDS ORDERED: SUVOREXANT 10 MG TABLET PO PRN (22:00)
[2019-03-05] MEDS: MELATONIN 5 MG TABLETS PO PRN (23:39)
[2019-03-06] MEDS: diphenhydrAMINE HCL 25 MG CAPSULE (FP) PO PRN (02:29)
[2019-03-06] MEDS ORDERED: METHADONE HCL 40 MG DISPERSABLE TABLET ONE (05:51)
[2019-03-06] MEDS ORDERED: METHADONE HCL 5 MG TABLET ONE (05:51)
[2019-03-06] MEDS: GABAPENTIN 300 MG CAPSULE PO PRN ×2 (06:36→21:38)
[2019-03-06] MEDS: METHADONE 40 MG, METHADONE 5 MG PO SCH (06:36)
[2019-03-06] MEDS: METHOCARBAMOL 750 MG TABLET PO SCH ×3 (06:51→21:40)
[2019-03-06] MEDS: LIDOCAINE 5% TOPICAL PATCH TP SCH (09:33)
[2019-03-06] MEDS: TRIAMCINOLONE ACET 0.1% OINT 15 GM TUBE TP SCH (09:34)
[2019-03-06] MEDS: FLUoxetine HCL 20 MG CAPSULE PO SCH (09:34)
[2019-03-06] MEDS: PRENATAL VITAMINS W/ FOLIC ACID TABLET (FP) PO SCH (09:34)
[2019-03-06] MEDS: NICOTINE 21 MG/24 HOURS TOPICAL PATCH TD SCH (09:34)
[2019-03-06] MEDS: DIVALPROEX SODIUM 250 MG TABLET E.C. PO SCH ×2 (09:34→21:39)
[2019-03-06] MEDS: cloNIDine HCL 0.1 MG TABLET PO SCH ×2 (09:34→21:38)
[2019-03-06] MEDS: IBUPROFEN 600 MG TABLET (FP) PO PRN (17:33)
[2019-03-06] MEDS: THIAMINE HCL 100 MG TABLET (FP) PO SCH (21:39)
[2019-03-06] MEDS: LIDOCAINE PATCH REMOVAL MC SCH (21:39)
[2019-03-07] MEDS: diphenhydrAMINE HCL 25 MG CAPSULE (FP) PO PRN ×3 (02:22→18:12)
[2019-03-07] MEDS ORDERED: METHADONE HCL 40 MG DISPERSABLE TABLET ONE (05:29)
[2019-03-07] MEDS ORDERED: METHADONE HCL 5 MG TABLET ONE (05:29)
[2019-03-07] MEDS: METHOCARBAMOL 750 MG TABLET PO SCH ×3 (06:13→22:15)
[2019-03-07] MEDS: METHADONE 40 MG, METHADONE 5 MG PO SCH (06:14)
[2019-03-07] MEDS: GABAPENTIN 300 MG CAPSULE PO PRN ×2 (06:16→22:13)
[2019-03-07] MEDS: IBUPROFEN 600 MG TABLET (FP) PO PRN ×2 (06:46→16:02)
[2019-03-07] MEDS: PRENATAL VITAMINS W/ FOLIC ACID TABLET (FP) PO SCH (09:43)
[2019-03-07] MEDS: cloNIDine HCL 0.1 MG TABLET PO SCH ×2 (09:43→22:13)
[2019-03-07] MEDS: NICOTINE 21 MG/24 HOURS TOPICAL PATCH TD SCH (09:44)
[2019-03-07] MEDS: DIVALPROEX SODIUM 250 MG TABLET E.C. PO SCH ×2 (09:44→22:14)
[2019-03-07] MEDS: LIDOCAINE 5% TOPICAL PATCH TP SCH (09:44)
[2019-03-07] MEDS ORDERED: PT OWN MED DRAWER 7, Y5N ONE (09:46)
[2019-03-07] MEDS: FLUoxetine HCL 20 MG CAPSULE PO SCH (10:12)
[2019-03-07] MEDS: TRIAMCINOLONE ACET 0.1% OINT 15 GM TUBE TP SCH (13:12)
[2019-03-07] MEDS: COLLOIDAL OATMEAL 1 BAR EACH TP PRN (16:04)
[2019-03-07] MEDS: ACETAMINOPHEN 325 MG TABLET (FP) PO PRN (18:12)
[2019-03-07] MEDS: LIDOCAINE PATCH REMOVAL MC SCH (22:11)
[2019-03-07] MEDS: THIAMINE HCL 100 MG TABLET (FP) PO SCH (22:12)
[2019-03-08] MEDS ORDERED: METHADONE HCL 5 MG TABLET ONE (05:55)
[2019-03-08] MEDS ORDERED: METHADONE HCL 40 MG DISPERSABLE TABLET ONE (05:55)
[2019-03-08] MEDS ORDERED: PT OWN MED DRAWER 7, Y5N ONE ×5 (05:55→21:53)
[2019-03-08] MEDS: METHADONE 40 MG, METHADONE 5 MG PO SCH (07:38)
[2019-03-08] MEDS: IBUPROFEN 600 MG TABLET (FP) PO PRN ×3 (07:38→18:26)
[2019-03-08] MEDS: METHOCARBAMOL 750 MG TABLET PO SCH ×3 (07:39→21:54)
[2019-03-08] MEDS: FLUoxetine HCL 20 MG CAPSULE PO SCH (10:15)
[2019-03-08] MEDS: PRENATAL VITAMINS W/ FOLIC ACID TABLET (FP) PO SCH (10:15)
[2019-03-08] MEDS: DIVALPROEX SODIUM 250 MG TABLET E.C. PO SCH ×2 (10:15→21:49)
[2019-03-08] MEDS: LIDOCAINE 5% TOPICAL PATCH TP SCH (10:16)
[2019-03-08] MEDS: TRIAMCINOLONE ACET 0.1% OINT 15 GM TUBE TP SCH (10:16)
[2019-03-08] MEDS: NICOTINE 21 MG/24 HOURS TOPICAL PATCH TD SCH (10:16)
[2019-03-08] MEDS: GABAPENTIN 300 MG CAPSULE PO PRN ×2 (10:18→21:55)
[2019-03-08] MEDS: cloNIDine HCL 0.1 MG TABLET PO SCH ×2 (11:00→21:49)
[2019-03-08] MEDS: ACETAMINOPHEN 325 MG TABLET (FP) PO PRN ×2 (11:02→21:50)
[2019-03-08] MEDS: guaiFENesin 200 MG/10 ML 10 ML UNIT-DOSE CUPS PO PRN (12:36)
--- NOTE | 2019-03-08 15:16 | PN ---
BHS Progress Note Note: Patient refusing depakote; level ordered.
[2019-03-08] MEDS: diphenhydrAMINE HCL 25 MG CAPSULE (FP) PO PRN (21:49)
[2019-03-08] MEDS: THIAMINE HCL 100 MG TABLET (FP) PO SCH (21:49)
[2019-03-08] MEDS: SUVOREXANT 10 MG TABLET PO PRN (21:49)
[2019-03-08] MEDS: LIDOCAINE PATCH REMOVAL MC SCH (21:53)
[2019-03-09] MEDS ORDERED: METHADONE HCL 5 MG TABLET ONE (04:00)
[2019-03-09] MEDS ORDERED: METHADONE HCL 40 MG DISPERSABLE TABLET ONE (04:01)
[2019-03-09] MEDS ORDERED: PT OWN MED DRAWER 7, Y5N ONE ×5 (04:02→22:01)
[2019-03-09] MEDS: METHADONE 40 MG, METHADONE 5 MG PO SCH (07:44)
[2019-03-09] MEDS: GABAPENTIN 300 MG CAPSULE PO PRN ×2 (07:45→22:03)
[2019-03-09] MEDS: METHOCARBAMOL 750 MG TABLET PO SCH ×3 (07:45→22:05)
[2019-03-09] MEDS: ACETAMINOPHEN 325 MG TABLET (FP) PO PRN ×2 (07:47→18:28)
[2019-03-09] MEDS: FLUoxetine HCL 20 MG CAPSULE PO SCH (10:03)
[2019-03-09] MEDS: LIDOCAINE 5% TOPICAL PATCH TP SCH (10:03)
[2019-03-09] MEDS: PRENATAL VITAMINS W/ FOLIC ACID TABLET (FP) PO SCH (10:03)
[2019-03-09] MEDS: NICOTINE 21 MG/24 HOURS TOPICAL PATCH TD SCH (10:04)
[2019-03-09] MEDS: cloNIDine HCL 0.1 MG TABLET PO SCH ×2 (10:04→22:03)
[2019-03-09] MEDS: DIVALPROEX SODIUM 250 MG TABLET E.C. PO SCH ×2 (10:05→22:04)
[2019-03-09] MEDS: TRIAMCINOLONE ACET 0.1% OINT 15 GM TUBE TP SCH (11:00)
[2019-03-09] MEDS: IBUPROFEN 600 MG TABLET (FP) PO PRN (15:18)
--- NOTE | 2019-03-09 15:51 | PN ---
BHS Progress Note Note: Valproic acid level =0.3, low. Patient states that she could not tolerate it and stopped the medication. Continues to refuse here. Patient understands the risk of a seizure. Laboratory Last Values POC Glucometer 106 UNITS (80-120) 03/04/19 08:27 Valproic Acid < 3.0 ug/mL (50-100) L 03/09/19 09:50 Vital Signs Period Temp Pulse Resp BP Sys/Barton Pulse Ox Last 24 Hr 97.9 F-98.2 F 56-77 -18 114-151/79-96 General: no apparent distress Neuro: CN 2-12 intact HEENTM: PERRLA MSK: full weight bearing, steady gait. Continue to monitor.
[2019-03-09] MEDS: THIAMINE HCL 100 MG TABLET (FP) PO SCH (22:03)
[2019-03-09] MEDS: SUVOREXANT 10 MG TABLET PO PRN (22:03)
[2019-03-09] MEDS: diphenhydrAMINE HCL 25 MG CAPSULE (FP) PO PRN (22:03)
[2019-03-09] MEDS: LIDOCAINE PATCH REMOVAL MC SCH (22:04)
[2019-03-10] MEDS ORDERED: METHADONE HCL 5 MG TABLET ONE (03:25)
[2019-03-10] MEDS ORDERED: METHADONE HCL 40 MG DISPERSABLE TABLET ONE (03:26)
[2019-03-10] MEDS: METHADONE 40 MG, METHADONE 5 MG PO SCH (07:14)
[2019-03-10] MEDS: GABAPENTIN 300 MG CAPSULE PO PRN (07:16)
[2019-03-10] MEDS: METHOCARBAMOL 750 MG TABLET PO SCH ×3 (07:16→21:42)
[2019-03-10] MEDS: IBUPROFEN 600 MG TABLET (FP) PO PRN (07:22)
[2019-03-10] MEDS: LIDOCAINE 5% TOPICAL PATCH TP SCH (09:10)
[2019-03-10] MEDS: FLUoxetine HCL 20 MG CAPSULE PO SCH (09:13)
[2019-03-10] MEDS: TRIAMCINOLONE ACET 0.1% OINT 15 GM TUBE TP SCH (09:13)
[2019-03-10] MEDS: DIVALPROEX SODIUM 250 MG TABLET E.C. PO SCH ×2 (09:13→21:41)
[2019-03-10] MEDS: cloNIDine HCL 0.1 MG TABLET PO SCH ×2 (09:16→21:41)
[2019-03-10] MEDS: NICOTINE 21 MG/24 HOURS TOPICAL PATCH TD SCH (09:17)
[2019-03-10] MEDS: PRENATAL VITAMINS W/ FOLIC ACID TABLET (FP) PO SCH (09:17)
--- NOTE | 2019-03-10 10:13 | DS ---
[facility] Rehab Discharge Summary - [facility] Rehab Discharge Summary Admission Date: 02/28/19 Discharge Date: 03/11/19 - History Present History: Alcohol dependence, Cocaine dependence, MMTP, Opioid dependence Pertinent Past History: 48 years old female with a long history of alcohol dependence. Patient has been in previous detox and reports about 6 years of sobriety. She has medical history of hypertension, asthma, anemia and arthritis. - Discharge Physical Exam Vital Signs: Vital Signs Temperature 97.9 F 03/10/19 07:14 Pulse Rate 79 03/10/19 09:23 Respiratory Rate 16 03/10/19 07:14 Blood Pressure 127/82 03/10/19 09:23 O2 Sat by Pulse Oximetry (%) Pertinent Admission Physical Exam Findings: Physical General Appearance: No apparent distress HEENTM: normocephalic, PERRLA Respiratory: Lungs Clear, Neck: Supple, Trachea in good position Cardiology: S1 S2 Abdominal: +Bowel Sounds, Soft Musculoskeletal: full weight bearing, full ROM, steady gaits Neurological: CN 2-12 intact - Treatment Discharge Condition: Outpatient referral accepted (Medically stable for discharge. patient returning to [facility] for aftercare support and [facility] ([facility])) Hospital Course: Patient attended groups, had 1:1 with her counselor, and was seen by the psychiatric service. Patient had problems adhering to her medication regimen-nd refused fingersticks and depakote (her level was low); medical consequences of refusal was discussed with the patient. However, as rehab progressed, patient understood the benefits of certain medications and took them. Patient was advised to discuss her medication regimen with her PCP when discharged. - Medication Discharge Medications: Ambulatory Orders Albuterol Sulfate Inhaler - [Ventolin Hfa Inhaler -] 2 inh PO Q4H PRN 04/30/18 Clonidine HCl 0.3 mg PO BID 02/24/19 Fluoxetine HCl [Prozac] 40 mg PO DAILY 02/24/19 Zolpidem Tartrate [Ambien] 10 mg PO HS 02/24/19 Gabapentin [Neurontin -] 600 mg PO BID@1000,1800 PRN 02/28/19 - Medication-Assisted Treatment (MAT) Medication-Assisted Treatment (MAT): Yes MAT Follow-up Referral: [facility] at [facility] - Discharge Instructions Diet, activity, other medical instructions: Diet: as tolerated Activity: as tolerated Other medical instructions: Please follow up with AA/NA groups at [facility]. Also f/u with PCP at [facility]. Please continue with MMTP at [facility]. - Diagnosis (1) Alcohol dependence Status: Chronic (2) Cocaine dependence Status: Chronic Qualifiers: Substance use status: uncomplicated Qualified Code(s): F14.20 - Cocaine dependence, uncomplicated (3) Opioid dependence on agonist therapy Status: Chronic - Follow-up Referral Minutes to complete discharge: 20 - AMA Did Patient Leave Against Medical Advice: No Additional Comments: Patient does not need prescriptions transmitted to her pharmacy; states she received refills prior to admission to [facility].
[2019-03-10] MEDS ORDERED: PT OWN MED DRAWER 7, Y5N ONE (13:13)
[2019-03-10] MEDS: THIAMINE HCL 100 MG TABLET (FP) PO SCH (21:40)
[2019-03-10] MEDS: diphenhydrAMINE HCL 25 MG CAPSULE (FP) PO PRN (21:41)
[2019-03-10] MEDS: LIDOCAINE PATCH REMOVAL MC SCH (21:41)
[2019-03-10] MEDS ORDERED: SUVOREXANT 10 MG TABLET PO PRN (22:00)
[2019-03-11] MEDS ORDERED: METHADONE HCL 5 MG TABLET ONE (05:51)
[2019-03-11] MEDS ORDERED: METHADONE HCL 40 MG DISPERSABLE TABLET ONE (05:52)
[2019-03-11] MEDS: METHADONE 40 MG, METHADONE 5 MG PO SCH (06:00)
[2019-03-11] MEDS: METHOCARBAMOL 750 MG TABLET PO SCH (06:00)
[2019-03-11] MEDS: GABAPENTIN 300 MG CAPSULE PO PRN (06:22)
[2019-03-11] MEDS ORDERED: PT OWN MED DRAWER 7, Y5N ONE (06:24)
[2019-03-11 06:36] VITALS: BP 119/82; PULSE 72; TEMP 97.6
== END 2019-03-11 07:05 | disposition home or self-care (01) | DRG 772 ==
LOC: YASAS 15:06 → Y3W 15:07 → Y3E 03-07 17:33
PROVIDERS: ADMIT Neuromusculoskeletal Medicine & OMM; ATTEND Neuromusculoskeletal Medicine & OMM
PROC: HZ42ZZZ Group Counseling for Substance Abuse Treatment, Cognitive-Behavioral (ICD-10-PCS; principal; 2019-02-28)
DX: F10.20 Alcohol dependence, uncomplicated (principal); F11.20 Opioid dependence, uncomplicated; F14.20 Cocaine dependence, uncomplicated; F17.210 Nicotine dependence, cigarettes, uncomplicated; F19.24 Other psychoactive substance dependence with psychoactive substance-induced mood disorder; F19.282 Other psychoactive substance dependence with psychoactive substance-induced sleep disorder; F39 Unspecified mood [affective] disorder; I10 Essential (primary) hypertension; J45.909 Unspecified asthma, uncomplicated; M54.5 Low back pain; G89.29 Other chronic pain; M19.90 Unspecified osteoarthritis, unspecified site
CPT/HCPCS: 80164; 82962; G0008; J0735; Q2036

== ENCOUNTER 2019-05-17 08:45 | Inpatient (IN) | payer OTHER ==
--- NOTE | 2019-05-17 09:23 | BHS.RME ---
Substance Use & Tx History - Substance Use History Alcohol Substance amount: 2 pints plus 12 . 24 ounce beers Frequency of use: Daily Substance route: Oral Date of Last Use: 05/17/19 Cocaine (Crack) Substance amount: 2 dimes Frequency of use: Less than 3 times per week Substance route: Smoking Date of Last Use: 05/15/19 Opiates (Heroin) Substance amount: 2 bags Frequency of use: Less than 3 times per week Substance route: Inhalation (ex: sniffing or snorting) Date of Last Use: 05/15/19 Physical/Psych/Mental Status - Behavior General Behavior: Increased activity (restlessness, agitation) Eye Contact: Normal - Cooperativeness Cooperativeness: Cooperative - Thinking Thought Processes: Loosened Thought content: Future oriented - Physical Health Problems Is patient presently having any pain?: No Does patient presently have any injuries (include location): No Does patient currently have a fever: No COWS - Scale Resting Pulse: 2= MA 101-120 Sweatin= Chills/Flushing Restless Observation: 1= Difficult to Sit Still Pupil Size: 0= Normal to Room Light Bone or Joint Aches: 1= Mild Discomfort Runny Nose/ Eye Tearin= Runny Nose/Eyes GI Upset > 30mins: 2= Nausea/Diarrhea Tremor Observation: 1= Tremor [place], Not Seen Yawning Observation: 2= >3x During Session Anxiety or Irritability: 2=Irritable/Anxious Goose Flesh Skin: 0=Smooth Skin COWS Score: 14 CIWA Nausea/Vomitin Muscle Tremors: 1-None Visible, but [place] Anxiety: 2 Agitation: 1-Slight > Activity Paroxysmal Sweats: No Perspiration Orientation: 0-Oriented Tacttile Disturbances: 0-None Auditory Disturbances: 2-Mild Harshness/Frighten Visual Disturbances: 2-Mild Sensitivity Headache: 0-None Present CIWA-Ar Total Score: 10
[2019-05-17 10:06] VITALS: BMI 29.4
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
[2019-05-17] MEDS ORDERED: ALBUTEROL SO4 HFA INHALER IH PRN (10:26)
[2019-05-17] MEDS ORDERED: MELATONIN 5 MG TABLETS PO PRN (10:27)
[2019-05-17] MEDS ORDERED: BISMUTH SUBSALICYLATE 262 MG/15 ML BTL PO PRN (10:27)
[2019-05-17] MEDS ORDERED: ACETAMINOPHEN 325 MG TABLET (FP) PO PRN ×2 (10:27)
[2019-05-17] MEDS ORDERED: MAG HYDROX/AL HYDROX/SIMETH 30 ML UNIT-DOSE CUP PO PRN (10:27)
[2019-05-17] MEDS ORDERED: MENTHOL/PHENOL 1 EACH UD MM PRN (10:27)
[2019-05-17] MEDS ORDERED: MAGNESIUM HYDROX 2400MG/30ML ORAL SUSPENSION 30 ML CUP PO PRN (10:27)
[2019-05-17] MEDS ORDERED: chlordiazePOXIDE HCL 25 MG CAPSULE PO PRN (10:27)
[2019-05-17] MEDS ORDERED: hydrOXYzine PAMOATE 25 MG CAPSULE (FP) PO PRN (10:27)
[2019-05-17] MEDS ORDERED: MAGNESIUM CITRATE 300 ML BOTTLE PO PRN (10:27)
[2019-05-17] MEDS: chlordiazePOXIDE HCL 25 MG CAPSULE PO SCH ×3 (11:20→22:17)
[2019-05-17] MEDS: NICOTINE 14 MG/24 HOURS TOPICAL PATCH TD SCH (11:20)
[2019-05-17] MEDS: cloNIDine HCL 0.1 MG TABLET PO SCH ×2 (11:20→22:17)
[2019-05-17] MEDS ORDERED: METHADONE HCL 10 MG TABLET PO SCH ×2 (11:30→12:00)
[2019-05-17] MEDS ORDERED: METHADONE HCL 10 MG TABLET ONE (12:43)
[2019-05-17] MEDS ORDERED: METHADONE HCL 40 MG DISPERSABLE TABLET ONE (12:44)
[2019-05-17] MEDS: METHADONE 40 MG, METHADONE 10 MG PO SCH (12:46)
[2019-05-17 15:32] LABS: HEMATOCRIT 38.8 % (32.4-45.2); HEMOGLOBIN 12.9 GM/dL (10.7-15.3); MCH 32.4 pg (25.7-33.7); MCHC 33.3 g/dl (32.0-36.0); MEAN CELL VOLUME 97.2 fl (80-96); MEAN PLT VOLUME 9.1 fl (7.5-11.1); PLATELET COUNT 259 K/MM3 (134-434); WHITE BLOOD COUNT 4.3 K/mm3 (4.0-10.0)
[2019-05-17 15:42] LABS: ALBUMIN 3.7 g/dl (3.4-5.0); BILIRUBIN,TOTAL 0.3 mg/dL (0.2-1); BLOOD UREA NITROGEN 8.2 mg/dL (7-18); CALCIUM 9.1 mg/dL (8.5-10.1); CREATININE 0.7 mg/dL (0.55-1.3); TOT PROT 7.3 g/dl (6.4-8.2)
[2019-05-17] MEDS: THIAMINE HCL 100 MG TABLET (FP) PO SCH (22:18)
[2019-05-17] MEDS: IBUPROFEN 400 MG TABLET (FP) PO PRN (22:20)
[2019-05-18] MEDS ORDERED: METHADONE HCL 10 MG TABLET ONE (04:01)
[2019-05-18] MEDS ORDERED: METHADONE HCL 40 MG DISPERSABLE TABLET ONE (04:02)
[2019-05-18] MEDS: METHADONE 40 MG, METHADONE 10 MG PO SCH (06:09)
[2019-05-18] MEDS: chlordiazePOXIDE HCL 25 MG CAPSULE PO SCH ×4 (06:10→23:05)
--- NOTE | 2019-05-18 09:29 | PN ---
S CIWA - CIWA Score Nausea/Vomitin-No Nausea/No Vomiting Muscle Tremors: 3 Anxiety: 3 Agitation: 2 Paroxysmal Sweats: 2 Orientation: 0-Oriented Tacttile Disturbances: 0-None Auditory Disturbances: 0-None Visual Disturbances: 1-Very Mild Sensitivity Headache: 1-Very Mild CIWA-Ar Total Score: 12 S Progress Note (SOAP) Subjective: 48 years old female admitted on 05/17/19 for alcohol withdrawal sx management treating with librium detox regiment adding regular diet order received methadone 50 mg today feeling tired resting in bed prefers to sleep longer Objective: 05/18/19 09:37 Vital Signs Temperature 97.7 F 05/18/19 06:52 Pulse Rate 57 L 05/18/19 06:52 Respiratory Rate 18 05/18/19 06:52 Blood Pressure 157/93 05/18/19 06:52 O2 Sat by Pulse Oximetry (%) Laboratory Last Values WBC 4.3 K/mm3 (4.0-10.0) 05/17/19 10:45 RBC 4.00 M/mm3 (3.60-5.2) 05/17/19 10:45 Hgb 12.9 GM/dL (10.7-15.3) 05/17/19 10:45 Hct 38.8 % (32.4-45.2) 05/17/19 10:45 MCV 97.2 fl (80-96) H 05/17/19 10:45 MCH 32.4 pg (25.7-33.7) 05/17/19 10:45 MCHC 33.3 g/dl (32.0-36.0) 05/17/19 10:45 RDW 14.0 % (11.6-15.6) 05/17/19 10:45 Plt Count 259 K/MM3 (134-434) 05/17/19 10:45 MPV 9.1 fl (7.5-11.1) 05/17/19 10:45 Sodium 141 mmol/L (136-145) 05/17/19 10:45 Potassium 4.0 mmol/L (3.5-5.1) 05/17/19 10:45 Chloride 104 mmol/L (98-107) 05/17/19 10:45 Carbon Dioxide 29 mmol/L (21-32) 05/17/19 10:45 Anion Gap 8 MMOL/L (8-16) 05/17/19 10:45 BUN 8.2 mg/dL (7-18) 05/17/19 10:45 Creatinine 0.7 mg/dL (0.55-1.3) 05/17/19 10:45 Est GFR (CKD-EPI)AfAm 119.58 05/17/19 10:45 Est GFR (CKD-EPI)NonAf 103.18 05/17/19 10:45 Random Glucose 115 mg/dL (74-106) H 05/17/19 10:45 Calcium 9.1 mg/dL (8.5-10.1) 05/17/19 10:45 Total Bilirubin 0.3 mg/dL (0.2-1) 05/17/19 10:45 AST 37 U/L (15-37) 05/17/19 10:45 ALT 31 U/L (13-61) 05/17/19 10:45 Alkaline Phosphatase 163 U/L (45-117) H 05/17/19 10:45 Total Protein 7.3 g/dl (6.4-8.2) 05/17/19 10:45 Albumin 3.7 g/dl (3.4-5.0) 05/17/19 10:45 RPR Titer Nonreactive (NONREACTIVE) 05/17/19 10:45 lab noted 05/18/19 09:37 bp elevation will receive clonidine 0.3 mg bid daily Assessment: 05/18/19 09:38 alcohol withdrawal Plan: librium regiment
[2019-05-18] MEDS: PRENATAL VITAMINS W/ FOLIC ACID TABLET (FP) PO SCH (10:21)
[2019-05-18] MEDS: NICOTINE 14 MG/24 HOURS TOPICAL PATCH TD SCH (10:22)
[2019-05-18] MEDS: cloNIDine HCL 0.1 MG TABLET PO SCH ×2 (10:23→21:55)
--- NOTE | 2019-05-18 13:15 | PN ---
S Progress Note Note: received nurse call that the patient is taking neurontine 600mg po bid and neurontine has not been ordered teletypewriter operator call preferred pharmacy [phone] last neurontine 300mg po tid filled on 02/2019 "seven days" hold neurontine at this time
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
[2019-05-18] MEDS: IBUPROFEN 400 MG TABLET (FP) PO PRN (19:41)
[2019-05-18] MEDS: hydrOXYzine PAMOATE 50 MG CAPSULE (FP) PO PRN (19:44)
[2019-05-18] MEDS: THIAMINE HCL 100 MG TABLET (FP) PO SCH (21:54)
[2019-05-19] MEDS ORDERED: METHADONE HCL 10 MG TABLET ONE (04:17)
[2019-05-19] MEDS ORDERED: METHADONE HCL 40 MG DISPERSABLE TABLET ONE (04:18)
[2019-05-19] MEDS: chlordiazePOXIDE HCL 25 MG CAPSULE PO SCH ×2 (05:48→11:28)
[2019-05-19] MEDS: METHADONE 40 MG, METHADONE 10 MG PO SCH (05:48)
[2019-05-19] MEDS: cloNIDine HCL 0.1 MG TABLET PO SCH ×2 (10:32→22:24)
[2019-05-19] MEDS: PRENATAL VITAMINS W/ FOLIC ACID TABLET (FP) PO SCH (10:33)
[2019-05-19] MEDS: NICOTINE 14 MG/24 HOURS TOPICAL PATCH TD SCH (10:33)
--- NOTE | 2019-05-19 11:24 | PN ---
S CIWA - CIWA Score Nausea/Vomitin-No Nausea/No Vomiting Muscle Tremors: 2 Anxiety: 2 Agitation: 0-Normal Activity Paroxysmal Sweats: 2 Orientation: 0-Oriented Tacttile Disturbances: 1-Very Mild Itch/Numbness Auditory Disturbances: 0-None Visual Disturbances: 0-None Headache: 2-Mild CIWA-Ar Total Score: 9 S Progress Note (SOAP) Subjective: 48 years old female admitted on 05/17/19 for alcohol withdrawal sx management treating with librium detox regiment received methadone 50 mg today resting in bed comfortably requests to make a phone call during group hour encourage the patient return later when group ended for phone call patient is receptive and cooperative ambulating with steady gait Objective: 05/19/19 11:24 Vital Signs Temperature 98.6 F 05/19/19 08:53 Pulse Rate 61 05/19/19 08:53 Respiratory Rate 16 05/19/19 08:53 Blood Pressure 139/91 05/19/19 08:53 O2 Sat by Pulse Oximetry (%) Laboratory Last Values WBC 4.3 K/mm3 (4.0-10.0) 05/17/19 10:45 RBC 4.00 M/mm3 (3.60-5.2) 05/17/19 10:45 Hgb 12.9 GM/dL (10.7-15.3) 05/17/19 10:45 Hct 38.8 % (32.4-45.2) 05/17/19 10:45 MCV 97.2 fl (80-96) H 05/17/19 10:45 MCH 32.4 pg (25.7-33.7) 05/17/19 10:45 MCHC 33.3 g/dl (32.0-36.0) 05/17/19 10:45 RDW 14.0 % (11.6-15.6) 05/17/19 10:45 Plt Count 259 K/MM3 (134-434) 05/17/19 10:45 MPV 9.1 fl (7.5-11.1) 05/17/19 10:45 Sodium 141 mmol/L (136-145) 05/17/19 10:45 Potassium 4.0 mmol/L (3.5-5.1) 05/17/19 10:45 Chloride 104 mmol/L (98-107) 05/17/19 10:45 Carbon Dioxide 29 mmol/L (21-32) 05/17/19 10:45 Anion Gap 8 MMOL/L (8-16) 05/17/19 10:45 BUN 8.2 mg/dL (7-18) 05/17/19 10:45 Creatinine 0.7 mg/dL (0.55-1.3) 05/17/19 10:45 Est GFR (CKD-EPI)AfAm 119.58 05/17/19 10:45 Est GFR (CKD-EPI)NonAf 103.18 05/17/19 10:45 Random Glucose 115 mg/dL (74-106) H 05/17/19 10:45 Calcium 9.1 mg/dL (8.5-10.1) 05/17/19 10:45 Total Bilirubin 0.3 mg/dL (0.2-1) 05/17/19 10:45 AST 37 U/L (15-37) 05/17/19 10:45 ALT 31 U/L (13-61) 05/17/19 10:45 Alkaline Phosphatase 163 U/L (45-117) H 05/17/19 10:45 Total Protein 7.3 g/dl (6.4-8.2) 05/17/19 10:45 Albumin 3.7 g/dl (3.4-5.0) 05/17/19 10:45 RPR Titer Nonreactive (NONREACTIVE) 05/17/19 10:45 lab noted Assessment: 05/19/19 11:24 alcohol withdrawal Plan: librium regiment
[2019-05-19] MEDS: chlordiazePOXIDE HCL 10 MG CAPSULE PO SCH ×2 (17:13→22:24)
[2019-05-19] MEDS: METHOCARBAMOL 500 MG TABLET PO PRN (17:14)
[2019-05-19] MEDS: THIAMINE HCL 100 MG TABLET (FP) PO SCH (22:24)
[2019-05-20] MEDS ORDERED: chlordiazePOXIDE HCL 10 MG CAPSULE PO PRN
[2019-05-20] MEDS: METHOCARBAMOL 500 MG TABLET PO PRN (03:09)
[2019-05-20] MEDS ORDERED: METHADONE HCL 40 MG DISPERSABLE TABLET ONE (04:48)
[2019-05-20] MEDS ORDERED: METHADONE HCL 10 MG TABLET ONE (04:48)
[2019-05-20] MEDS: chlordiazePOXIDE HCL 10 MG CAPSULE PO SCH ×4 (05:20→22:17)
[2019-05-20] MEDS: METHADONE 40 MG, METHADONE 10 MG PO SCH (05:20)
[2019-05-20] MEDS: hydrOXYzine PAMOATE 50 MG CAPSULE (FP) PO PRN ×2 (06:10→13:54)
[2019-05-20] MEDS ORDERED: cloNIDine HCL 0.1 MG TABLET PO ONE (06:38)
--- NOTE | 2019-05-20 06:40 | PN ---
ELIZABETH Progress Note Note: Patient's blood pressure this morning is B/P 183/104. Patient is asymptomatic Vital Signs Temperature 97.2 F L 05/20/19 06:19 Pulse Rate 75 05/20/19 06:19 Respiratory Rate 18 05/20/19 06:19 Blood Pressure 183/104 H 05/20/19 06:19 O2 Sat by Pulse Oximetry (%) Action: Clonidine 0.3mg tablet oral stat ordered
[2019-05-20] MEDS: PRENATAL VITAMINS W/ FOLIC ACID TABLET (FP) PO SCH (10:47)
[2019-05-20] MEDS: NICOTINE 14 MG/24 HOURS TOPICAL PATCH TD SCH (10:49)
[2019-05-20] MEDS: cloNIDine HCL 0.1 MG TABLET PO SCH ×2 (10:49→22:16)
--- NOTE | 2019-05-20 11:32 | PN ---
S CIWA - CIWA Score Nausea/Vomitin-Mild Nausea/No Vomiting Muscle Tremors: 2 Anxiety: 2 Agitation: 1-Slight > Activity Paroxysmal Sweats: No Perspiration Orientation: 0-Oriented Tacttile Disturbances: 1-Very Mild Itch/Numbness Auditory Disturbances: 0-None Visual Disturbances: 0-None Headache: 1-Very Mild CIWA-Ar Total Score: 8 BHS Progress Note (SOAP) Subjective: alert,irritable,anxious,interrupted sleep,pain in the back Objective: 05/20/19 11:31 Vital Signs Temperature 66.1 F L 05/20/19 08:37 Pulse Rate 73 05/20/19 08:37 Respiratory Rate 16 05/20/19 08:37 Blood Pressure 144/94 05/20/19 08:37 O2 Sat by Pulse Oximetry (%) Assessment: 05/20/19 11:32 withdrawal symptom Plan: continue detox librium regimen,lidoderm patch to lower back
[2019-05-20] MEDS: LIDOCAINE 5% TOPICAL PATCH TP SCH (11:56)
[2019-05-20] MEDS: IBUPROFEN 400 MG TABLET (FP) PO PRN (13:51)
[2019-05-20] MEDS: THIAMINE HCL 100 MG TABLET (FP) PO SCH (22:17)
[2019-05-20] MEDS: LIDOCAINE PATCH REMOVAL MC SCH (22:17)
[2019-05-21] MEDS ORDERED: METHADONE HCL 40 MG DISPERSABLE TABLET ONE (04:56)
[2019-05-21] MEDS ORDERED: METHADONE HCL 10 MG TABLET ONE (04:56)
[2019-05-21] MEDS: METHADONE 40 MG, METHADONE 10 MG PO SCH (05:17)
[2019-05-21] MEDS: chlordiazePOXIDE HCL 10 MG CAPSULE PO SCH ×2 (05:17→17:24)
[2019-05-21] MEDS: hydrOXYzine PAMOATE 50 MG CAPSULE (FP) PO PRN (05:21)
[2019-05-21] MEDS: IBUPROFEN 400 MG TABLET (FP) PO PRN (06:41)
[2019-05-21] MEDS: cloNIDine HCL 0.1 MG TABLET PO SCH ×2 (11:00→22:27)
[2019-05-21] MEDS: PRENATAL VITAMINS W/ FOLIC ACID TABLET (FP) PO SCH (11:00)
[2019-05-21] MEDS: NICOTINE 14 MG/24 HOURS TOPICAL PATCH TD SCH (11:08)
[2019-05-21] MEDS: LIDOCAINE 5% TOPICAL PATCH TP SCH (11:09)
--- NOTE | 2019-05-21 12:28 | PN ---
[facility] CIWA - CIWA Score Nausea/Vomitin-No Nausea/No Vomiting Muscle Tremors: None Anxiety: 1-Mildly Anxious Agitation: 0-Normal Activity Paroxysmal Sweats: 2 Orientation: 0-Oriented Tacttile Disturbances: 0-None Auditory Disturbances: 0-None Visual Disturbances: 0-None Headache: 0-None Present CIWA-Ar Total Score: 3 S Progress Note (SOAP) Subjective: c/o mild withdrawal symptoms. Objective: 05/21/19 12:27 Vital Signs 05/21/19 05/21/19 07:24 09:23 Temperature 97 F L 97.5 F L Pulse Rate 75 64 Respiratory 18 17 Rate Blood Pressure 148/92 147/81 Laboratory Last Values WBC 4.3 K/mm3 (4.0-10.0) 05/17/19 10:45 RBC 4.00 M/mm3 (3.60-5.2) 05/17/19 10:45 Hgb 12.9 GM/dL (10.7-15.3) 05/17/19 10:45 Hct 38.8 % (32.4-45.2) 05/17/19 10:45 MCV 97.2 fl (80-96) H 05/17/19 10:45 MCH 32.4 pg (25.7-33.7) 05/17/19 10:45 MCHC 33.3 g/dl (32.0-36.0) 05/17/19 10:45 RDW 14.0 % (11.6-15.6) 05/17/19 10:45 Plt Count 259 K/MM3 (134-434) 05/17/19 10:45 MPV 9.1 fl (7.5-11.1) 05/17/19 10:45 Sodium 141 mmol/L (136-145) 05/17/19 10:45 Potassium 4.0 mmol/L (3.5-5.1) 05/17/19 10:45 Chloride 104 mmol/L (98-107) 05/17/19 10:45 Carbon Dioxide 29 mmol/L (21-32) 05/17/19 10:45 Anion Gap 8 MMOL/L (8-16) 05/17/19 10:45 BUN 8.2 mg/dL (7-18) 05/17/19 10:45 Creatinine 0.7 mg/dL (0.55-1.3) 05/17/19 10:45 Est GFR (CKD-EPI)AfAm 119.58 05/17/19 10:45 Est GFR (CKD-EPI)NonAf 103.18 05/17/19 10:45 Random Glucose 115 mg/dL (74-106) H 05/17/19 10:45 Calcium 9.1 mg/dL (8.5-10.1) 05/17/19 10:45 Total Bilirubin 0.3 mg/dL (0.2-1) 05/17/19 10:45 AST 37 U/L (15-37) 05/17/19 10:45 ALT 31 U/L (13-61) 05/17/19 10:45 Alkaline Phosphatase 163 U/L (45-117) H 05/17/19 10:45 Total Protein 7.3 g/dl (6.4-8.2) 05/17/19 10:45 Albumin 3.7 g/dl (3.4-5.0) 05/17/19 10:45 RPR Titer Nonreactive (NONREACTIVE) 05/17/19 10:45 Labs noted. Assessment: 05/21/19 12:27 AOX3, in no respiratory distress. Full ROM, ambulating in the unit. Mild Withdrawal symptoms. For d/c tomorrow. Plan: continue detox. D/C in AM.
[2019-05-21] MEDS: LIDOCAINE PATCH REMOVAL MC SCH (23:11)
[2019-05-21] MEDS: THIAMINE HCL 100 MG TABLET (FP) PO SCH (23:11)
[2019-05-22] MEDS: IBUPROFEN 400 MG TABLET (FP) PO PRN (03:11)
[2019-05-22] MEDS: hydrOXYzine PAMOATE 50 MG CAPSULE (FP) PO PRN (03:12)
[2019-05-22] MEDS ORDERED: chlordiazePOXIDE HCL 10 MG CAPSULE PO ONE (05:00)
[2019-05-22] MEDS ORDERED: METHADONE HCL 40 MG DISPERSABLE TABLET ONE (05:04)
[2019-05-22] MEDS ORDERED: METHADONE HCL 10 MG TABLET ONE (05:04)
[2019-05-22] MEDS: METHADONE 40 MG, METHADONE 10 MG PO SCH (05:37)
[2019-05-22 07:07] VITALS: BP 134/84; PULSE 70; TEMP 98.3
--- NOTE | 2019-05-22 11:35 | DS ---
[facility] Detox Discharge Summary Admission Date: 05/17/19 Discharge Date: 05/22/19 - History Present History: Alcohol Dependence Additional Comments: 48 years old female admitted on 05/17/19 for alcohol withdrawal sx management treated with librium detox regiment Ms Butler has completed the librium regiment and tolerated well seen by psychiatrist codye vistaril prn alert oriented x 3 speech clearly coherently steady gait respiratory clear lungs bilaterally on auscultation extremities full range of motion skin warm and dry Pertinent Past History: time for discharge 48 minutes patient has long history of hypertension and none adherence to clonidine treatment regiment frequent rebound hypertension episodes encourage the patient to discuss different antihypertensive medication for better outcome patient walks out the detox unit designer/writer call security [phone] that the patient has safely arrived the formerly [facility] area - Physical Exam Results Vital Signs: Vital Signs Temperature 98.3 F 05/22/19 05:06 Pulse Rate 70 05/22/19 05:06 Respiratory Rate 18 05/22/19 05:06 Blood Pressure 134/84 05/22/19 05:06 O2 Sat by Pulse Oximetry (%) Pertinent Admission Physical Exam Findings: alcohol withdrawal Vital Signs Temperature 98.3 F 05/22/19 05:06 Pulse Rate 70 05/22/19 05:06 Respiratory Rate 18 05/22/19 05:06 Blood Pressure 134/84 05/22/19 05:06 O2 Sat by Pulse Oximetry (%) Laboratory Last Values WBC 4.3 K/mm3 (4.0-10.0) 05/17/19 10:45 RBC 4.00 M/mm3 (3.60-5.2) 05/17/19 10:45 Hgb 12.9 GM/dL (10.7-15.3) 05/17/19 10:45 Hct 38.8 % (32.4-45.2) 05/17/19 10:45 MCV 97.2 fl (80-96) H 05/17/19 10:45 MCH 32.4 pg (25.7-33.7) 05/17/19 10:45 MCHC 33.3 g/dl (32.0-36.0) 05/17/19 10:45 RDW 14.0 % (11.6-15.6) 05/17/19 10:45 Plt Count 259 K/MM3 (134-434) 05/17/19 10:45 MPV 9.1 fl (7.5-11.1) 05/17/19 10:45 Sodium 141 mmol/L (136-145) 05/17/19 10:45 Potassium 4.0 mmol/L (3.5-5.1) 05/17/19 10:45 Chloride 104 mmol/L (98-107) 05/17/19 10:45 Carbon Dioxide 29 mmol/L (21-32) 05/17/19 10:45 Anion Gap 8 MMOL/L (8-16) 05/17/19 10:45 BUN 8.2 mg/dL (7-18) 05/17/19 10:45 Creatinine 0.7 mg/dL (0.55-1.3) 05/17/19 10:45 Est GFR (CKD-EPI)AfAm 119.58 05/17/19 10:45 Est GFR (CKD-EPI)NonAf 103.18 05/17/19 10:45 Random Glucose 115 mg/dL (74-106) H 05/17/19 10:45 Calcium 9.1 mg/dL (8.5-10.1) 05/17/19 10:45 Total Bilirubin 0.3 mg/dL (0.2-1) 05/17/19 10:45 AST 37 U/L (15-37) 05/17/19 10:45 ALT 31 U/L (13-61) 05/17/19 10:45 Alkaline Phosphatase 163 U/L (45-117) H 05/17/19 10:45 Total Protein 7.3 g/dl (6.4-8.2) 05/17/19 10:45 Albumin 3.7 g/dl (3.4-5.0) 05/17/19 10:45 RPR Titer Nonreactive (NONREACTIVE) 05/17/19 10:45 la bnoted - Treatment Hospital Course: Detox Protocol Followed, Detoxed Safely, Responded well, Discharged Condition Good, Rehab Referral Accepted Patient has Accepted a Rehab Referral to: return to methadone maintenance program - Medication Discharge Medications: Ambulatory Orders Albuterol Sulfate Inhaler - [Ventolin Hfa Inhaler -] 2 inh PO Q4H PRN 04/30/18 Clonidine HCl 0.3 mg PO BID 02/24/19 Fluoxetine HCl [Prozac] 40 mg PO DAILY 02/24/19 Gabapentin [Neurontin -] 600 mg PO BID@1000,1800 PRN 02/28/19 - Diagnosis (1) Substance induced mood disorder Status: Suspected (2) Alcohol dependence with uncomplicated withdrawal Status: Acute (3) Asthma Status: Chronic Qualifiers: Asthma severity: mild Asthma persistence: intermittent Asthma complication type: with status asthmaticus Qualified Code(s): J45.22 - Mild intermittent asthma with status asthmaticus (4) HTN (hypertension) Status: Chronic Qualifiers: Hypertension type: essential hypertension Qualified Code(s): I10 - Essential (primary) hypertension (5) Nicotine dependence Status: Acute Qualifiers: Nicotine product type: cigarettes Substance use status: in withdrawal Qualified Code(s): F17.213 - Nicotine dependence, cigarettes, with withdrawal (6) Opioid dependence on agonist therapy Status: Chronic (7) PPD positive Status: Resolved - AMA Did Patient Leave Against Medical Advice: No CIWA Score - CIWA Score Nausea/Vomitin-No Nausea/No Vomiting Muscle Tremors: None Anxiety: 1-Mildly Anxious Agitation: 0-Normal Activity Paroxysmal Sweats: No Perspiration Orientation: 0-Oriented Tacttile Disturbances: 0-None Auditory Disturbances: 0-None Visual Disturbances: 0-None Headache: 0-None Present CIWA-Ar Total Score: 1
== END 2019-05-22 10:17 | disposition home or self-care (01) | DRG 773 ==
LOC: YASAS 08:45 → Y3N 10:19
PROVIDERS: ADMIT Allergy & Immunology; ATTEND Allergy & Immunology
PROC: HZ2ZZZZ Detoxification Services for Substance Abuse Treatment (ICD-10-PCS; principal; 2019-05-17)
DX: F10.230 Alcohol dependence with withdrawal, uncomplicated (principal); F11.20 Opioid dependence, uncomplicated; F14.20 Cocaine dependence, uncomplicated; F17.210 Nicotine dependence, cigarettes, uncomplicated; F19.24 Other psychoactive substance dependence with psychoactive substance-induced mood disorder; F39 Unspecified mood [affective] disorder; F32.9 Major depressive disorder, single episode, unspecified; I10 Essential (primary) hypertension; J45.22 Mild intermittent asthma with status asthmaticus; D64.9 Anemia, unspecified; M12.9 Arthropathy, unspecified; M54.5 Low back pain; G89.29 Other chronic pain; R76.11 Nonspecific reaction to tuberculin skin test without active tuberculosis; Z56.0 Unemployment, unspecified; Z91.018 Allergy to other foods
CPT/HCPCS: 36415; 80053; 85027; 86593; J0735

== ENCOUNTER 2019-12-19 19:08 | Inpatient (IN) | payer OTHER ==
[~2019-12-19 19:08] MED LIST changes: +COLLOIDAL OATMEAL 1 BAR EACH TP ONE; -LOPERAMIDE HCL 2 MG CAPSULE PO PRN; -MAG HYDROX/AL HYDROX/SIMETH 30 ML UNIT-DOSE CUP PO PRN; -MAGNESIUM CITRATE 300 ML BOTTLE PO PRN; -MAGNESIUM HYDROX 2400MG/30ML ORAL SUSPENSION 30 ML CUP PO PRN; -MENTHOL/PHENOL 1 EACH UD MM PRN; -NICOTINE POLACRILEX 4 MG GUM BUC PRN; -P-EPHED 60MG/TRIPROLIDI 2.5MG TABLET PO PRN; -SUVOREXANT 10 MG TABLET PO PRN; -hydrOXYzine PAMOATE 50 MG CAPSULE (FP) PO PRN
[2019-12-19 20:10] VITALS: BMI 23.9
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
[2019-12-19] MEDS ORDERED: MAGNESIUM HYDROX 2400MG/30ML ORAL SUSPENSION 30 ML CUP PO PRN (21:26)
[2019-12-19] MEDS ORDERED: MENTHOL/PHENOL 1 EACH UD MM PRN (21:26)
[2019-12-19] MEDS ORDERED: MAG HYDROX/AL HYDROX/SIMETH 30 ML UNIT-DOSE CUP PO PRN (21:26)
[2019-12-19] MEDS ORDERED: ONDANSETRON *ODT* 4 MG TABLET SL PRN (21:26)
[2019-12-19] MEDS ORDERED: MAGNESIUM CITRATE 300 ML BOTTLE PO PRN (21:26)
[2019-12-19] MEDS ORDERED: BISMUTH SUBSALICYLATE 524 MG/30 ML UD PO PRN (21:26)
[2019-12-19] MEDS ORDERED: ACETAMINOPHEN 325 MG TABLET (FP) PO PRN (21:26)
[2019-12-19] MEDS ORDERED: METHOCARBAMOL 500 MG TABLET PO PRN (21:26)
[2019-12-19] MEDS ORDERED: chlordiazePOXIDE HCL 25 MG CAPSULE PO PRN (21:26)
[2019-12-19] MEDS ORDERED: NICOTINE POLACRILEX 2 MG GUM BUC PRN (21:26)
[2019-12-19] MEDS ORDERED: IBUPROFEN 400 MG TABLET (FP) PO PRN (21:26)
[2019-12-19] MEDS ORDERED: COLLOIDAL OATMEAL 1 BAR EACH TP PRN (21:29)
--- OUTSIDE RECORDS SUMMARY | 2019-12-19 22:28 | XMS ---
:1970 Author Organization [facility] Support Name Relationship Address Phone UE Unavailable Unavailable Unavailable PAM BEE DAUGHTER [place], [place] CITLALY BROWN FRIEND [address] [place] [address] PAM BEE Child UNK Unavailable [place], [place] Re-disclosure Warning The records that you are about to access may contain information from federally- assisted alcohol or drug abuse programs. If such information is present, then the following federally mandated warning applies: This information has been disclosed to you from records protected by federal confidentiality rules (42 CFR part 2). The federal rules prohibit you from making any further disclosure of this information unless further disclosure is expressly permitted by the written consent of the person to whom it pertains or as otherwise permitted by 42 CFR part 2. A general authorization for the release of medical or other information is NOT sufficient for this purpose. The Federal rules restrict any use of the information to criminally investigate or prosecute any alcohol or drug abuse patient.The records that you are about to access may contain highly sensitive health information, the redisclosure of which is protected by Article 27-F of the [facility] Public Health law. If you continue you may haveaccess to information: Regarding HIV / AIDS; Provided by facilities licensed or operated by the [facility] Office of Mental Health; or Provided by the [facility] Office for People With Developmental Disabilities. If such information is present, then the following [facility] mandated warning applies: This information has been disclosed to you from confidential records which are protected by state law. State law prohibits you from making any further disclosure of this information without the specific written consent of the person to whom it pertains, or as otherwise permitted by law. Any unauthorized further disclosure in violation of state law may result in a fine or long-term sentence or both. A general authorization for the release of medical or other information is NOT sufficient authorization for further disclosure. Insurance Providers Payer name Policy type Policy ID Covered Covered alliance party's Policy P luiz / Coverage alliance party ID relationship to [employer] Inf ormation type [employer] [id number] SP [id number] [employer] [id number] SP [id number] FIRST Results ID Date Data Source [id number] 12/09/2019 12:00:00 AM EDT [facility] Name Value Range Interpretation Code Description Data Delia rce(s) Supporting Document(s ) 2019-nCoV [facility] RNA XXX JANE+probe- Imp This lab was ordered by LEENA GREEN T ALEXX and reported by [employer] Procedure
[2019-12-20] MEDS: chlordiazePOXIDE HCL 25 MG CAPSULE PO SCH ×5 (00:08→22:41)
[2019-12-20] MEDS: MELATONIN 5 MG TABLETS PO SCH ×2 (00:08→22:43)
[2019-12-20] MEDS: THIAMINE HCL 100 MG TABLET (FP) PO SCH ×2 (00:08→22:42)
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
[2019-12-20] MEDS ORDERED: METHADONE HCL 10 MG TABLET PO ONE (09:46)
[2019-12-20] MEDS ORDERED: METHADONE 40 MG, METHADONE 10 MG PO ONE (09:57)
[2019-12-20] MEDS ORDERED: METHADONE HCL 40 MG DISPERSABLE TABLET ONE (10:08)
[2019-12-20] MEDS ORDERED: METHADONE HCL 10 MG TABLET ONE (10:08)
--- NOTE | 2019-12-20 10:14 | EKG ---
Test Reason : Blood Pressure : / mmHG Vent. Rate : 077 BPM Atrial Rate : 077 BPM P-R Int : 130 ms QRS Dur : 086 ms QT Int : 376 ms P-R-T Axes : 054 040 045 degrees QTc Int : 425 ms NORMAL SINUS RHYTHM NORMAL ECG WHEN COMPARED WITH ECG OF 25-FEB-2019 00:32, NO SIGNIFICANT CHANGE WAS FOUND Confirmed by MD Tatiana, Demarcus ([id number]) on 12/20/2019 10:14:18 AM Referred By: Omari Mckeon Confirmed By:Demarcus Simpson MD
[2019-12-20] MEDS: ARIPiprazole 2 MG TABLET PO SCH (10:47)
[2019-12-20] MEDS: NICOTINE 21 MG/24 HOURS TOPICAL PATCH TD SCH (10:48)
[2019-12-20] MEDS: PRENATAL VITAMINS W/ FOLIC ACID TABLET (FP) PO SCH (10:48)
[2019-12-20] MEDS: FLUoxetine HCL 20 MG CAPSULE PO SCH (10:52)
[2019-12-20] MEDS ORDERED: FLUOCINONIDE 0.05% CREAM (15 GM TUBE) TP SCH (14:30)
--- NOTE | 2019-12-20 14:30 | PN ---
S CIWA - CIWA Score Nausea/Vomitin-No Nausea/No Vomiting Muscle Tremors: 3 Anxiety: 2 Agitation: 3 Paroxysmal Sweats: 3 Orientation: 0-Oriented Tacttile Disturbances: 0-None Auditory Disturbances: 0-None Visual Disturbances: 0-None Headache: 0-None Present CIWA-Ar Total Score: 11 S Progress Note (SOAP) Subjective: sweats shakes body aches dry skin Objective: 12/20/19 14:26 Vital Signs Temperature 97.3 F L 12/20/19 05:27 Pulse Rate 61 12/20/19 05:27 Respiratory Rate 18 12/20/19 05:27 Blood Pressure 125/72 12/20/19 05:27 O2 Sat by Pulse Oximetry (%) 97 12/20/19 05:27 labs will be drawn tomorrow morning aaox3 ambulating no acute distress Assessment: 12/20/19 14:27 withdrawals Plan: continue detox lidex cream ordered
[2019-12-20] MEDS: VITAMINS A AND D TOPICAL OINTMENT 60 GM TUBE TP SCH (18:16)
[2019-12-20] MEDS ORDERED: SUVOREXANT 10 MG TABLET PO PRN (22:00)
[2019-12-21] MEDS ORDERED: cloNIDine HCL 0.1 MG TABLET PO ONE (00:13)
[2019-12-21] MEDS: VITAMINS A AND D TOPICAL OINTMENT 60 GM TUBE TP SCH ×5 (00:49→23:43)
[2019-12-21] MEDS: ACETAMINOPHEN 325 MG TABLET (FP) PO PRN ×2 (03:56→22:47)
[2019-12-21] MEDS ORDERED: METHADONE HCL 40 MG DISPERSABLE TABLET ONE (04:38)
[2019-12-21] MEDS ORDERED: METHADONE HCL 10 MG TABLET ONE (04:38)
[2019-12-21] MEDS ORDERED: METHADONE HCL 40 MG DISPERSABLE TABLET PO SCH (06:00)
[2019-12-21] MEDS: METHADONE 40 MG, METHADONE 10 MG PO SCH (06:53)
[2019-12-21] MEDS: chlordiazePOXIDE HCL 25 MG CAPSULE PO SCH ×4 (06:53→22:44)
[2019-12-21] MEDS: PRENATAL VITAMINS W/ FOLIC ACID TABLET (FP) PO SCH (10:06)
[2019-12-21] MEDS: FLUoxetine HCL 20 MG CAPSULE PO SCH (10:06)
[2019-12-21] MEDS: NICOTINE 21 MG/24 HOURS TOPICAL PATCH TD SCH (10:06)
[2019-12-21] MEDS: ARIPiprazole 2 MG TABLET PO SCH (10:08)
[2019-12-21 10:34] LABS: HEMATOCRIT 41.8 % (32.4-45.2); HEMOGLOBIN 13.8 GM/dL (10.7-15.3); MCH 31.8 pg (25.7-33.7); MCHC 33.1 g/dl (32.0-36.0); MEAN CELL VOLUME 96.1 fl (80-96); MEAN PLT VOLUME 9.5 fl (7.5-11.1); PLATELET COUNT 194 K/MM3 (134-434); RBC 4.35 M/mm3 (3.60-5.2); RDW 13.9 % (11.6-15.6); WHITE BLOOD COUNT 5.9 K/mm3 (4.0-10.0)
[2019-12-21 10:43] LABS: ALBUMIN 3.5 g/dl (3.4-5.0); BILIRUBIN,TOTAL 0.4 mg/dL (0.2-1); BLOOD UREA NITROGEN 13.5 mg/dL (7-18); CALCIUM 9.5 mg/dL (8.5-10.1); CREATININE 0.7 mg/dL (0.55-1.3); POTASSIUM 4.3 mmol/L (3.5-5.1); TOT PROT 6.9 g/dl (6.4-8.2)
[2019-12-21] MEDS: cloNIDine HCL 0.1 MG TABLET PO SCH ×2 (11:50→22:44)
[2019-12-21] MEDS ORDERED: diphenhydrAMINE HCL 25 MG CAPSULE (FP) PO ONE (12:03)
--- NOTE | 2019-12-21 13:38 | PN ---
S CIWA - CIWA Score Nausea/Vomitin-No Nausea/No Vomiting Muscle Tremors: 2 Anxiety: 2 Agitation: 2 Paroxysmal Sweats: 2 Orientation: 0-Oriented Tacttile Disturbances: 0-None Auditory Disturbances: 0-None Visual Disturbances: 0-None Headache: 0-None Present CIWA-Ar Total Score: 8 BHS Progress Note (SOAP) Subjective: sweats shakes interrupted sleep skin itchy Objective: 12/21/19 13:37 Vital Signs Temperature 97.1 F L 12/21/19 09:02 Pulse Rate 77 12/21/19 09:02 Respiratory Rate 18 12/21/19 09:02 Blood Pressure 153/99 12/21/19 09:02 O2 Sat by Pulse Oximetry (%) 95 12/21/19 06:25 Laboratory Tests 12/19/19 12/19/19 12/21/19 20:10 22:20 07:00 WBC RBC Hgb Hct MCV MCH MCHC RDW Plt Count MPV Sodium Potassium Chloride Carbon Dioxide Anion Gap BUN Creatinine Est GFR (CKD-EPI)AfAm Est GFR (CKD-EPI)NonAf Random Glucose Calcium Total Bilirubin AST ALT Alkaline Phosphatase Total Protein Albumin POC Urine HCG, Qual Negative Syphilis Serology Non-reactive COVID-19 (JANE) Not detected 12/21/19 12/21/19 07:00 07:00 WBC 5.9 RBC 4.35 Hgb 13.8 Hct 41.8 MCV 96.1 H MCH 31.8 MCHC 33.1 RDW 13.9 Plt Count 194 MPV 9.5 Sodium 139 Potassium 4.3 Chloride 101 Carbon Dioxide 32 Anion Gap 6 L BUN 13.5 Creatinine 0.7 Est GFR (CKD-EPI)AfAm 118.74 Est GFR (CKD-EPI)NonAf 102.45 Random Glucose 103 Calcium 9.5 Total Bilirubin 0.4 AST 26 ALT 32 Alkaline Phosphatase 235 H Total Protein 6.9 Albumin 3.5 POC Urine HCG, Qual Syphilis Serology COVID-19 (JANE) labs noted aaox3 ambulating no acute distress Assessment: 12/21/19 13:37 withdrawals skin with bumps noted; itchy noted Plan: continue detox benadryl 25mg x one
[2019-12-21] MEDS: THIAMINE HCL 100 MG TABLET (FP) PO SCH (22:45)
[2019-12-21] MEDS: MELATONIN 5 MG TABLETS PO SCH (22:45)
[2019-12-22] MEDS ORDERED: chlordiazePOXIDE HCL 10 MG CAPSULE PO PRN
[2019-12-22] MEDS ORDERED: METHADONE HCL 40 MG DISPERSABLE TABLET ONE (04:49)
[2019-12-22] MEDS ORDERED: METHADONE HCL 10 MG TABLET ONE (04:49)
[2019-12-22] MEDS: chlordiazePOXIDE HCL 10 MG CAPSULE PO SCH ×4 (07:03→22:51)
[2019-12-22] MEDS: METHADONE 40 MG, METHADONE 10 MG PO SCH (07:04)
[2019-12-22] MEDS: VITAMINS A AND D TOPICAL OINTMENT 60 GM TUBE TP SCH ×4 (07:05→18:09)
[2019-12-22] MEDS: NICOTINE 21 MG/24 HOURS TOPICAL PATCH TD SCH (10:48)
[2019-12-22] MEDS: cloNIDine HCL 0.1 MG TABLET PO SCH ×2 (10:48→22:50)
[2019-12-22] MEDS: FLUoxetine HCL 20 MG CAPSULE PO SCH (10:48)
[2019-12-22] MEDS: PRENATAL VITAMINS W/ FOLIC ACID TABLET (FP) PO SCH (10:48)
[2019-12-22] MEDS: ARIPiprazole 2 MG TABLET PO SCH (10:50)
--- NOTE | 2019-12-22 14:08 | PN ---
S CIWA - CIWA Score Nausea/Vomitin-No Nausea/No Vomiting Muscle Tremors: 2 Anxiety: 1-Mildly Anxious Agitation: 2 Paroxysmal Sweats: 1-Minimal Palms Moist Orientation: 0-Oriented Tacttile Disturbances: 0-None Auditory Disturbances: 0-None Visual Disturbances: 0-None Headache: 0-None Present CIWA-Ar Total Score: 6 BHS Progress Note (SOAP) Subjective: sweats restless Objective: 12/22/19 14:06 Vital Signs Temperature 97 F L 12/22/19 12:32 Pulse Rate 64 12/22/19 12:32 Respiratory Rate 18 12/22/19 12:32 Blood Pressure 127/83 12/22/19 12:32 O2 Sat by Pulse Oximetry (%) 96 12/22/19 12:32 Laboratory Tests 12/19/19 12/19/19 12/21/19 20:10 22:20 07:00 WBC RBC Hgb Hct MCV MCH MCHC RDW Plt Count MPV Sodium Potassium Chloride Carbon Dioxide Anion Gap BUN Creatinine Est GFR (CKD-EPI)AfAm Est GFR (CKD-EPI)NonAf Random Glucose Calcium Total Bilirubin AST ALT Alkaline Phosphatase Total Protein Albumin POC Urine HCG, Qual Negative Syphilis Serology Non-reactive COVID-19 (JANE) Not detected 12/21/19 12/21/19 07:00 07:00 WBC 5.9 RBC 4.35 Hgb 13.8 Hct 41.8 MCV 96.1 H MCH 31.8 MCHC 33.1 RDW 13.9 Plt Count 194 MPV 9.5 Sodium 139 Potassium 4.3 Chloride 101 Carbon Dioxide 32 Anion Gap 6 L BUN 13.5 Creatinine 0.7 Est GFR (CKD-EPI)AfAm 118.74 Est GFR (CKD-EPI)NonAf 102.45 Random Glucose 103 Calcium 9.5 Total Bilirubin 0.4 AST 26 ALT 32 Alkaline Phosphatase 235 H Total Protein 6.9 Albumin 3.5 POC Urine HCG, Qual Syphilis Serology COVID-19 (JANE) labs noted aaox3 ambulating no acute distress Assessment: 12/22/19 14:07 withdrawals Plan: continue detox
[2019-12-22] MEDS: ACETAMINOPHEN 325 MG TABLET (FP) PO PRN (15:54)
[2019-12-22] MEDS: THIAMINE HCL 100 MG TABLET (FP) PO SCH (22:51)
[2019-12-22] MEDS: MELATONIN 5 MG TABLETS PO SCH (22:53)
[2019-12-23] MEDS: VITAMINS A AND D TOPICAL OINTMENT 60 GM TUBE TP SCH ×2 (02:31→07:03)
[2019-12-23] MEDS ORDERED: METHADONE HCL 40 MG DISPERSABLE TABLET ONE (03:48)
[2019-12-23] MEDS ORDERED: METHADONE HCL 10 MG TABLET ONE (03:48)
[2019-12-23] MEDS ORDERED: chlordiazePOXIDE HCL 10 MG CAPSULE PO SCH (05:00)
[2019-12-23] MEDS: METHADONE 40 MG, METHADONE 10 MG PO SCH (07:03)
[2019-12-23] MEDS: ACETAMINOPHEN 325 MG TABLET (FP) PO PRN (07:11)
--- NOTE | 2019-12-23 09:36 | DS ---
[facility] Detox Discharge Summary Admission Date: 12/19/19 Discharge Date: 12/23/19 - History Present History: Alcohol Dependence, Cocaine Dependence, MMTP - Physical Exam Results Vital Signs: Vital Signs Temperature 97.7 F 12/23/19 06:25 Pulse Rate 63 12/23/19 06:25 Respiratory Rate 16 12/23/19 06:25 Blood Pressure 149/97 12/23/19 06:25 O2 Sat by Pulse Oximetry (%) 98 12/23/19 06:25 Pertinent Admission Physical Exam Findings: Vital Signs Temperature 97.7 F 12/23/19 06:25 Pulse Rate 63 12/23/19 06:25 Respiratory Rate 16 12/23/19 06:25 Blood Pressure 149/97 12/23/19 06:25 O2 Sat by Pulse Oximetry (%) 98 12/23/19 06:25 Laboratory Tests 12/19/19 12/19/19 12/21/19 20:10 22:20 07:00 WBC RBC Hgb Hct MCV MCH MCHC RDW Plt Count MPV Sodium Potassium Chloride Carbon Dioxide Anion Gap BUN Creatinine Est GFR (CKD-EPI)AfAm Est GFR (CKD-EPI)NonAf Random Glucose Calcium Total Bilirubin AST ALT Alkaline Phosphatase Total Protein Albumin POC Urine HCG, Qual Negative Syphilis Serology Non-reactive COVID-19 (JANE) Not detected 12/21/19 12/21/19 07:00 07:00 WBC 5.9 RBC 4.35 Hgb 13.8 Hct 41.8 MCV 96.1 H MCH 31.8 MCHC 33.1 RDW 13.9 Plt Count 194 MPV 9.5 Sodium 139 Potassium 4.3 Chloride 101 Carbon Dioxide 32 Anion Gap 6 L BUN 13.5 Creatinine 0.7 Est GFR (CKD-EPI)AfAm 118.74 Est GFR (CKD-EPI)NonAf 102.45 Random Glucose 103 Calcium 9.5 Total Bilirubin 0.4 AST 26 ALT 32 Alkaline Phosphatase 235 H Total Protein 6.9 Albumin 3.5 POC Urine HCG, Qual Syphilis Serology COVID-19 (JANE) labs noted aaox3 ambulating no acute distress lungs CTA - Treatment Hospital Course: Detox Protocol Followed, Detoxed Safely, Responded well, Discharged Condition Good, Rehab Referral Accepted - Medication Discharge Medications: Ambulatory Orders Albuterol Sulfate Inhaler - [Ventolin Hfa Inhaler -] 2 inh PO Q4H PRN 04/30/18 Gabapentin [Neurontin -] 600 mg PO BID@1000,1800 PRN 02/28/19 Aripiprazole [Abilify -] 2 mg PO DAILY 08/04/19 Fluoxetine HCl [Prozac -] 20 mg PO DAILY 08/04/19 - Diagnosis (1) Asthma Current Visit: Yes Status: Chronic Qualifiers: Asthma severity: mild Asthma persistence: intermittent Asthma complication type: with status asthmaticus Qualified Code(s): J45.22 - Mild intermittent asthma with status asthmaticus (2) Chronic low back pain Current Visit: Yes Status: Chronic Qualifiers: Back pain laterality: unspecified (3) Eczema Current Visit: Yes Status: Chronic Qualifiers: Eczema type: unspecified Qualified Code(s): L30.9 - Dermatitis, unspecified (4) HTN (hypertension) Current Visit: Yes Status: Chronic Qualifiers: Hypertension type: essential hypertension Qualified Code(s): I10 - Essential (primary) hypertension (5) Mood disorder Current Visit: Yes Status: Chronic (6) Nicotine dependence Current Visit: Yes Status: Chronic Qualifiers: Nicotine product type: cigarettes Substance use status: uncomplicated Qualified Code(s): F17.210 - Nicotine dependence, cigarettes, uncomplicated (7) Opioid dependence on agonist therapy Current Visit: Yes Status: Chronic (8) PPD positive Current Visit: Yes Status: Chronic (9) Bipolar disorder Current Visit: Yes Status: Ruled-out (10) Alcohol dependence with uncomplicated withdrawal Current Visit: Yes Status: Chronic (11) Cocaine dependence Current Visit: Yes Status: Chronic Qualifiers: Substance use status: uncomplicated Qualified Code(s): F14.20 - Cocaine dependence, uncomplicated (12) Elevated blood pressure reading without diagnosis of hypertension Current Visit: No Status: Acute (13) Insomnia Current Visit: No Status: Acute (14) Subconjunctival hemorrhage of right eye Current Visit: No Status: Acute (15) Substance induced mood disorder Current Visit: No Status: Acute (16) Substance-induced sleep disorder Current Visit: No Status: Acute (17) Cocaine dependence Current Visit: Yes Status: Chronic Qualifiers: Substance use status: uncomplicated Qualified Code(s): F14.20 - Cocaine dependence, uncomplicated (18) Mood disorder Current Visit: No Status: Chronic (19) Opioid dependence on agonist therapy Current Visit: No Status: Chronic - AMA Did Patient Leave Against Medical Advice: No
[2019-12-23 09:56] VITALS: BP 127/77; PULSE 71; TEMP 97.5
[2019-12-23] MEDS: PRENATAL VITAMINS W/ FOLIC ACID TABLET (FP) PO SCH (10:40)
[2019-12-23] MEDS: NICOTINE 21 MG/24 HOURS TOPICAL PATCH TD SCH (10:40)
[2019-12-23] MEDS: cloNIDine HCL 0.1 MG TABLET PO SCH (10:40)
[2019-12-23] MEDS: FLUoxetine HCL 20 MG CAPSULE PO SCH (10:40)
[2019-12-23] MEDS: ARIPiprazole 2 MG TABLET PO SCH (10:40)
[2019-12-24] MEDS ORDERED: chlordiazePOXIDE HCL 10 MG CAPSULE PO ONE (05:00)
--- NOTE | 2020-01-01 17:37 | DS ---
[facility] Rehab Discharge Summary - [facility] Rehab Discharge Summary Admission Date: 12/19/19 Discharge Date: 12/31/19 - History Present History: Alcohol dependence, MMTP Pertinent Past History: asthma hypertension eczema nicotine dependence bipolar disorder - Discharge Physical Exam Vital Signs: Vital Signs Temperature 97.5 F L 12/23/19 08:55 Pulse Rate 71 12/23/19 08:55 Respiratory Rate 18 12/23/19 08:55 Blood Pressure 127/77 12/23/19 08:55 O2 Sat by Pulse Oximetry (%) 98 12/23/19 08:55 Pertinent Admission Physical Exam Findings: alert,oriented x 3 lung clear on auscultation no abdominal pain ready to move on further level of care rehab - Treatment Discharge Condition: Discharge condition good, Rehabilitated safely, Responded well, Outpatient referral accepted Hospital Course: doing well with good motivation to move on for better life - Medication Discharge Medications: Ambulatory Orders Albuterol Sulfate Inhaler - [Ventolin Hfa Inhaler -] 2 inh PO Q4H PRN 04/30/18 Aripiprazole [Abilify -] 2 mg PO DAILY 08/04/19 Fluoxetine HCl [Prozac -] 20 mg PO DAILY 08/04/19 Methadone HCl 50 mg PO DAILY 12/23/19 cloNIDine HCL [Catapres -] 0.3 mg PO BID 12/23/19 - Discharge Instructions Diet, activity, other medical instructions: Diet: Activity: Other medical instructions: - Diagnosis (1) Eczema Status: Acute (2) Asthma Status: Chronic Qualifiers: Asthma severity: mild Asthma persistence: intermittent Asthma complication type: with status asthmaticus Qualified Code(s): J45.22 - Mild intermittent asthma with status asthmaticus (3) Opioid dependence on agonist therapy Status: Chronic (4) HTN (hypertension) Status: Chronic Qualifiers: Hypertension type: essential hypertension Qualified Code(s): I10 - Essential (primary) hypertension (5) Cocaine dependence Status: Chronic Qualifiers: Substance use status: uncomplicated Qualified Code(s): F14.20 - Cocaine dependence, uncomplicated (6) Bipolar disorder Status: Ruled-out (7) Alcohol dependence Status: Acute (8) Insomnia Status: Acute - Follow-up Referral Minutes to complete discharge: 40 - AMA Did Patient Leave Against Medical Advice: No Additional Comments: alert,oriented x 3 ambulation on the unit lung clear on auscultation bilaterally no edema of legs stable for discharge left the unit in good and stable condition has her medications at home will follow up with after care program as arrangement by counselor Tiffany Zarco and methadone maintenance clinic
== END 2019-12-23 12:08 | disposition home or self-care (01) | DRG 773 ==
LOC: YASAS 19:08 → Y6N 22:24
PROVIDERS: ADMIT Allergy & Immunology; ATTEND Allergy & Immunology
PROC: HZ2ZZZZ Detoxification Services for Substance Abuse Treatment (ICD-10-PCS; principal; 2019-12-19)
DX: F10.230 Alcohol dependence with withdrawal, uncomplicated (principal); F11.20 Opioid dependence, uncomplicated; F14.20 Cocaine dependence, uncomplicated; F17.210 Nicotine dependence, cigarettes, uncomplicated; F19.282 Other psychoactive substance dependence with psychoactive substance-induced sleep disorder; F19.24 Other psychoactive substance dependence with psychoactive substance-induced mood disorder; F39 Unspecified mood [affective] disorder; D50.9 Iron deficiency anemia, unspecified; L30.9 Dermatitis, unspecified; G47.00 Insomnia, unspecified; I10 Essential (primary) hypertension; H11.31 Conjunctival hemorrhage, right eye; M54.5 Low back pain; G89.29 Other chronic pain; R76.11 Nonspecific reaction to tuberculin skin test without active tuberculosis; Z91.018 Allergy to other foods
CPT/HCPCS: 36415; 80053; 81025; 85027; 86780; 93005; 93010; J0735; U0003

== ENCOUNTER 2019-12-23 12:53 | Inpatient (IN) | payer OTHER ==
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
--- NOTE | 2019-12-23 14:37 | HP ---
[facility] Rehab Assess/Revision - Admission History Admitted to Rehab from: Date of Admission to Rehab: 12/23/19 - Vital signs Vital Signs: Vital Signs Period Temp Pulse Resp BP Sys/Barton Pulse Ox Last 24 Hr 96.8 F 61 18 170/104 100 - Findings Detox History & Physical reviewed: Yes Concur with findings: Yes Comments/Additional Findings: Pt is a 49 y/o female with alcohol use disorder who completed detox and referred to rehab today. Pt is on MMTP with 50 mg po daily, last dosed on today. PMHx:Asthma, HTN, Arthritis. Pt is a poor historian and gave multiple PCPs with no further information. Pt appears agitated and irritated when asked questions and not readily giving primary care information. Pt appears tired-s/p detox. Alert o x 3. nad. oob ambulating with steady. s/p detox. ALMA. Increase po fluids. maintain safety. f/u with pt when less agitated and rested. Clonidine 0.1 mg po now for BP 174/107. Inpatient Rehab Admission - Rehab Decision to Admit Inpatient rehab admission?: Yes - Initial Determination Are CD services needed?: Yes Free of communicable disease: Yes Not in need of hospitalization: Yes - Rehab Admission Criteria Previous failed treatment: Yes Poor recovery environment: Yes Comorbidities: Yes Lacks judgement: Yes Patient is meeting Inpatient Rehab admission criteria:: Yes
[2019-12-23] MEDS ORDERED: MAG HYDROX/AL HYDROX/SIMETH 30 ML UNIT-DOSE CUP PO PRN (14:42)
[2019-12-23] MEDS ORDERED: IBUPROFEN 400 MG TABLET (FP) PO PRN (14:42)
[2019-12-23] MEDS ORDERED: P-EPHED 60MG/TRIPROLIDI 2.5MG TABLET PO PRN (14:42)
[2019-12-23] MEDS ORDERED: MAGNESIUM CITRATE 300 ML BOTTLE PO PRN (14:42)
[2019-12-23] MEDS ORDERED: MENTHOL/PHENOL 1 EACH UD MM PRN (14:42)
[2019-12-23] MEDS ORDERED: guaiFENesin 200 MG/10 ML 10 ML UNIT-DOSE CUPS PO PRN (14:42)
[2019-12-23] MEDS ORDERED: MAGNESIUM HYDROX 2400MG/30ML ORAL SUSPENSION 30 ML CUP PO PRN (14:42)
[2019-12-23] MEDS ORDERED: LOPERAMIDE HCL 2 MG CAPSULE PO PRN (14:42)
[2019-12-23] MEDS ORDERED: NICOTINE POLACRILEX 2 MG GUM BUC PRN (14:42)
[2019-12-23] MEDS ORDERED: ALBUTEROL SO4 HFA INHALER IH PRN (14:50)
[2019-12-23] MEDS ORDERED: cloNIDine HCL 0.1 MG TABLET PO ONE (15:39)
[2019-12-23] MEDS ORDERED: PT OWN MED DRAWER 7, Y5N ONE (16:03)
--- OUTSIDE RECORDS SUMMARY | 2019-12-23 17:46 | XMS ---
:1970 Author Organization [facility] Support Name Relationship Address Phone UE Unavailable Unavailable Unavailable PAM BEE DAUGHTER UNK [place], [place] CITLALY BROWN FRIEND [address] [place] [address] PAM BEE Child UNK Unavailable [place], [place] Re-disclosure Warning The records that [...] is protected by Article 27-F of the [facility] Public Health law. If you continue you may haveaccess to information: Regarding HIV / AIDS; Provided by facilities licensed or operated by the [facility] Office of Mental Health; or Provided by the [facility] Office for People With Developmental Disabilities. If such information is present, then the following [facility] mandated warning applies: This information has [...] law may result in a fine or shelter sentence or both. A general authorization for the release of medical or other information is NOT sufficient authorization for further disclosure. Insurance Providers Payer name Policy type Policy ID Covered Covered alliance party's Policy P luiz / Coverage alliance party ID relationship to [employer] Inf ormation type gomez HEALTH [id number] SP [id number] FIRST [employer] [id number] SP [id number] FIRST Results ID Date Data Source [id number] 12/19/2019 10:20:00 PM EDT [facility] Name Value Range Interpretation Description Data Sup porting Code Source(s) Document(s ) SARS [facility] coronavirus 2 RNA This lab was ordered by [facility] Ac ct Bill Inter and reported by [facility]. ID Date Data Source [id number] 12/09/2019 12:00:00 AM EDT [facility] Name Value Range Interpretation Code Description Data Delia rce(s) Supporting Document(s ) 2019-nCoV [facility] RNA XXX JANE+probe- Imp This lab was ordered by [facility] and reported by [employer] Procedure
--- OUTSIDE RECORDS SUMMARY | 2019-12-23 17:51 | XMS ---
:1970 Author Organization [facility] Support Name Relationship Address Phone UE Unavailable Unavailable Unavailable PAM BEE DAUGHTER UNK [place], [place] CITLALY BROWN FRIEND [address] [place] [address] PAM BEE Child UNK Unavailable [place], [place] Re-disclosure Warning The records that [...] is protected by Article 27-F of the [facility] Public Health law. If you continue you may haveaccess to information: Regarding HIV / AIDS; Provided by facilities licensed or operated by the [facility] Office of Mental Health; or Provided by the [facility] Office for People With Developmental Disabilities. If such information is present, then the following [facility] mandated warning applies: This information has been [...] law may result in a fine or usp sentence or both. A general authorization for the release of medical or other information is NOT sufficient authorization for further disclosure. Insurance Providers Payer name Policy type Policy ID Covered Covered constitution party's Policy P luiz / Coverage constitution party ID relationship to [employer] ormation type gomez HEALTH [id number] SP [id number] [employer] [id number] SP [id number] FIRST Results ID Date Data Source [id number] 12/19/2019 10:20:00 PM EDT [facility] Name Value Range Interpretation Description Data Sup porting Code Source(s) Document(s ) SARS [facility] coronavirus 2 RNA This lab was ordered by [facility] Ac ct Bill Inter and reported by [facility]. ID Date Data Source [id number] 12/09/2019 12:00:00 AM EDT [facility] Name Value Range Interpretation Code Description Data Delia rce(s) Supporting Document(s ) 2019-nCoV [facility] RNA XXX JANE+probe- Imp This lab was ordered by [facility] and reported by [employer] Procedure
[2019-12-23] MEDS ORDERED: MASKS NR ONE ×2 (18:28→18:29)
[2019-12-23] MEDS: cloNIDine HCL 0.1 MG TABLET PO SCH (21:48)
[2019-12-23] MEDS: hydrOXYzine PAMOATE 25 MG CAPSULE (FP) PO PRN (21:49)
[2019-12-23] MEDS: THIAMINE HCL 100 MG TABLET (FP) PO SCH (21:49)
[2019-12-23] MEDS: METHOCARBAMOL 500 MG TABLET PO PRN (21:54)
[2019-12-23] MEDS ORDERED: MELATONIN 5 MG TABLETS PO SCH (22:00)
[2019-12-23] MEDS ORDERED: SUVOREXANT 10 MG TABLET PO PRN (22:00)
[2019-12-24] MEDS ORDERED: METHADONE HCL 10 MG TABLET PO SCH (06:00)
[2019-12-24] MEDS ORDERED: METHADONE HCL 40 MG DISPERSABLE TABLET ONE (06:34)
[2019-12-24] MEDS ORDERED: METHADONE HCL 10 MG TABLET ONE (06:34)
[2019-12-24] MEDS: METHADONE 40 MG, METHADONE 10 MG PO SCH (07:15)
[2019-12-24] MEDS: hydrOXYzine PAMOATE 25 MG CAPSULE (FP) PO PRN ×2 (07:18→22:11)
[2019-12-24] MEDS ORDERED: PT OWN MED DRAWER 7, Y5N ONE (08:22)
[2019-12-24] MEDS ORDERED: MASKS NR ONE (08:52)
[2019-12-24] MEDS: ARIPiprazole 2 MG TABLET PO SCH (09:27)
[2019-12-24] MEDS: cloNIDine HCL 0.1 MG TABLET PO SCH ×2 (09:27→22:09)
[2019-12-24] MEDS: FLUoxetine HCL 20 MG CAPSULE PO SCH (09:28)
[2019-12-24] MEDS: NICOTINE 7 MG/24 HOURS TOPICAL PATCH TD SCH (09:28)
[2019-12-24] MEDS: PRENATAL VITAMINS W/ FOLIC ACID TABLET (FP) PO SCH (09:28)
[2019-12-24] MEDS ORDERED: FLU VACCINE (FLULAVAL) PF 60 MCG/0.5 ML SYRINGE 2020-2021 IM ONE (12:00)
[2019-12-24] MEDS: THIAMINE HCL 100 MG TABLET (FP) PO SCH (22:10)
[2019-12-25] MEDS ORDERED: METHADONE HCL 10 MG TABLET ONE (03:17)
[2019-12-25] MEDS ORDERED: METHADONE HCL 40 MG DISPERSABLE TABLET ONE (03:17)
[2019-12-25] MEDS: METHADONE 40 MG, METHADONE 10 MG PO SCH (06:40)
[2019-12-25] MEDS: hydrOXYzine PAMOATE 25 MG CAPSULE (FP) PO PRN ×2 (06:41→15:26)
[2019-12-25] MEDS: ACETAMINOPHEN 325 MG TABLET (FP) PO PRN ×2 (07:39→21:04)
[2019-12-25] MEDS ORDERED: PT OWN MED DRAWER 7, Y5N ONE (08:27)
[2019-12-25] MEDS: ARIPiprazole 2 MG TABLET PO SCH (10:05)
[2019-12-25] MEDS: cloNIDine HCL 0.1 MG TABLET PO SCH ×2 (10:06→21:03)
[2019-12-25] MEDS: FLUoxetine HCL 20 MG CAPSULE PO SCH (10:07)
[2019-12-25] MEDS: PRENATAL VITAMINS W/ FOLIC ACID TABLET (FP) PO SCH (10:07)
[2019-12-25] MEDS: NICOTINE 7 MG/24 HOURS TOPICAL PATCH TD SCH (10:07)
[2019-12-25] MEDS: THIAMINE HCL 100 MG TABLET (FP) PO SCH (21:03)
[2019-12-26] MEDS ORDERED: METHADONE HCL 40 MG DISPERSABLE TABLET ONE (03:22)
[2019-12-26] MEDS ORDERED: METHADONE HCL 10 MG TABLET ONE (03:22)
[2019-12-26] MEDS: METHADONE 40 MG, METHADONE 10 MG PO SCH (07:07)
[2019-12-26] MEDS: hydrOXYzine PAMOATE 25 MG CAPSULE (FP) PO PRN (07:10)
[2019-12-26] MEDS: ACETAMINOPHEN 325 MG TABLET (FP) PO PRN (07:23)
[2019-12-26] MEDS: ARIPiprazole 2 MG TABLET PO SCH (10:04)
[2019-12-26] MEDS: FLUoxetine HCL 20 MG CAPSULE PO SCH (10:04)
[2019-12-26] MEDS: PRENATAL VITAMINS W/ FOLIC ACID TABLET (FP) PO SCH (10:04)
[2019-12-26] MEDS: cloNIDine HCL 0.1 MG TABLET PO SCH ×2 (10:05→21:30)
[2019-12-26] MEDS: NICOTINE 7 MG/24 HOURS TOPICAL PATCH TD SCH (10:05)
[2019-12-26] MEDS ORDERED: diphenhydrAMINE HCL 25 MG CAPSULE (FP) PO ONE (13:00)
--- NOTE | 2019-12-26 13:12 | PN ---
S Progress Note Note: Pt c/o generalized rash with itch. Reports may have been the red sauce/tomato sauce she ate on Thursday. Pt also c/o of itchiness to groin/upper thigh area. Vital Signs - 24 hr 12/25/19 12/25/19 12/25/19 15:00 21:02 22:28 Temperature Pulse Rate 69 Respiratory Rate Blood Pressure 153/98 O2 Sat by Pulse 97 99 Oximetry (%) 12/26/19 12/26/19 07:15 09:30 Temperature 97.1 F L Pulse Rate 77 67 Respiratory 16 Rate Blood Pressure 118/76 132/96 O2 Sat by Pulse 99 Oximetry (%) Alert o x 3 nad oob ambulating with steady gait Skin:Generalized macula rash with some redness. Possible food allergy Benadryl 25 mg po now Benadryl 25 mg po BID prn Pt was seen by the Guest Specialist today.
[2019-12-26] MEDS: METHOCARBAMOL 500 MG TABLET PO PRN (21:28)
[2019-12-26] MEDS: diphenhydrAMINE HCL 25 MG CAPSULE (FP) PO PRN (21:28)
[2019-12-26] MEDS: THIAMINE HCL 100 MG TABLET (FP) PO SCH (21:31)
[2019-12-26] MEDS: NYSTATIN 100000 UNIT/GM TOPICAL OINTMENT 15 GM TUBE TP SCH (21:31)
[2019-12-26] MEDS ORDERED: SUVOREXANT 10 MG TABLET PO PRN (22:00)
[2019-12-27] MEDS ORDERED: METHADONE HCL 10 MG TABLET ONE (05:50)
[2019-12-27] MEDS ORDERED: METHADONE HCL 40 MG DISPERSABLE TABLET ONE (05:50)
[2019-12-27] MEDS: METHADONE 40 MG, METHADONE 10 MG PO SCH (06:19)
[2019-12-27] MEDS: ACETAMINOPHEN 325 MG TABLET (FP) PO PRN ×2 (06:22→12:07)
[2019-12-27] MEDS: hydrOXYzine PAMOATE 25 MG CAPSULE (FP) PO PRN ×2 (06:22→21:35)
[2019-12-27] MEDS ORDERED: PT OWN MED DRAWER 7, Y5N ONE (09:59)
[2019-12-27] MEDS: PRENATAL VITAMINS W/ FOLIC ACID TABLET (FP) PO SCH (10:01)
[2019-12-27] MEDS: NICOTINE 7 MG/24 HOURS TOPICAL PATCH TD SCH (10:01)
[2019-12-27] MEDS: FLUoxetine HCL 20 MG CAPSULE PO SCH (10:01)
[2019-12-27] MEDS: ARIPiprazole 2 MG TABLET PO SCH (10:01)
[2019-12-27] MEDS: cloNIDine HCL 0.1 MG TABLET PO SCH ×2 (10:01→21:35)
[2019-12-27] MEDS: diphenhydrAMINE HCL 25 MG CAPSULE (FP) PO PRN (10:02)
[2019-12-27] MEDS: NYSTATIN 100000 UNIT/GM TOPICAL OINTMENT 15 GM TUBE TP SCH ×2 (11:00→21:35)
[2019-12-27] MEDS: THIAMINE HCL 100 MG TABLET (FP) PO SCH (21:34)
[2019-12-28] MEDS ORDERED: METHADONE HCL 10 MG TABLET ONE (03:27)
[2019-12-28] MEDS ORDERED: METHADONE HCL 40 MG DISPERSABLE TABLET ONE (03:28)
[2019-12-28] MEDS: diphenhydrAMINE HCL 25 MG CAPSULE (FP) PO PRN ×2 (06:23→21:37)
[2019-12-28] MEDS: METHADONE 40 MG, METHADONE 10 MG PO SCH (06:23)
[2019-12-28] MEDS ORDERED: PT OWN MED DRAWER 7, Y5N ONE (08:48)
[2019-12-28] MEDS: ARIPiprazole 2 MG TABLET PO SCH (09:51)
[2019-12-28] MEDS: cloNIDine HCL 0.1 MG TABLET PO SCH ×2 (09:51→21:34)
[2019-12-28] MEDS: PRENATAL VITAMINS W/ FOLIC ACID TABLET (FP) PO SCH (09:52)
[2019-12-28] MEDS: NICOTINE 7 MG/24 HOURS TOPICAL PATCH TD SCH (09:52)
[2019-12-28] MEDS: FLUoxetine HCL 20 MG CAPSULE PO SCH (09:52)
[2019-12-28] MEDS: NYSTATIN 100000 UNIT/GM TOPICAL OINTMENT 15 GM TUBE TP SCH ×2 (09:53→21:34)
[2019-12-28] MEDS: ACETAMINOPHEN 325 MG TABLET (FP) PO PRN (13:04)
[2019-12-28] MEDS: THIAMINE HCL 100 MG TABLET (FP) PO SCH (21:33)
[2019-12-29] MEDS ORDERED: METHADONE HCL 40 MG DISPERSABLE TABLET ONE (03:59)
[2019-12-29] MEDS ORDERED: METHADONE HCL 10 MG TABLET ONE (03:59)
[2019-12-29] MEDS: METHADONE 40 MG, METHADONE 10 MG PO SCH (07:06)
[2019-12-29] MEDS: ACETAMINOPHEN 325 MG TABLET (FP) PO PRN (07:07)
[2019-12-29] MEDS: diphenhydrAMINE HCL 25 MG CAPSULE (FP) PO PRN ×3 (07:07→22:16)
[2019-12-29] MEDS: FLUoxetine HCL 20 MG CAPSULE PO SCH (10:09)
[2019-12-29] MEDS: NYSTATIN 100000 UNIT/GM TOPICAL OINTMENT 15 GM TUBE TP SCH ×2 (10:09→22:16)
[2019-12-29] MEDS: NICOTINE 7 MG/24 HOURS TOPICAL PATCH TD SCH (10:10)
[2019-12-29] MEDS: PRENATAL VITAMINS W/ FOLIC ACID TABLET (FP) PO SCH (10:10)
[2019-12-29] MEDS: cloNIDine HCL 0.1 MG TABLET PO SCH ×2 (10:10→22:16)
[2019-12-29] MEDS: ARIPiprazole 2 MG TABLET PO SCH (10:11)
[2019-12-29] MEDS ORDERED: PT OWN MED DRAWER 7, Y5N ONE ×2 (10:14→10:18)
--- NOTE | 2019-12-29 15:47 | PN ---
[facility] Progress Note Note: Pt requested and contacted her program to decrease her Methadone dose. Counselor, Ms Juarez Seda on behalf of patient faxed conset for request and Pt's Methadone provider Dr. Norberto Castrejon gave permission and faxed order to decrease pt by methadone 5 mg effective today 12/29/19 to receive metahdone 45 mg po daily. Vital Signs - 24 hr 12/28/19 12/28/19 12/29/19 21:07 21:15 07:04 Temperature 97.1 F L Pulse Rate 78 66 Respiratory 16 Rate Blood Pressure 127/82 116/76 O2 Sat by Pulse 97 95 Oximetry (%) 12/29/19 12/29/19 10:00 13:47 Temperature Pulse Rate 79 Respiratory Rate Blood Pressure 120/85 O2 Sat by Pulse 100 Oximetry (%) Methadone 45 mg po daily starting 12/30/19(pt already dosed this morning with methadone 50 mg .
[2019-12-29] MEDS ORDERED: SUVOREXANT 10 MG TABLET PO PRN (22:00)
[2019-12-29] MEDS: THIAMINE HCL 100 MG TABLET (FP) PO SCH (22:16)
[2019-12-30] MEDS ORDERED: METHADONE HCL 10 MG TABLET PO SCH (06:00)
[2019-12-30] MEDS ORDERED: METHADONE HCL 40 MG DISPERSABLE TABLET ONE (06:39)
[2019-12-30] MEDS ORDERED: METHADONE HCL 5 MG TABLET ONE (06:39)
[2019-12-30] MEDS: METHADONE 40 MG, METHADONE 5 MG PO SCH (06:40)
[2019-12-30] MEDS: diphenhydrAMINE HCL 25 MG CAPSULE (FP) PO PRN ×2 (06:41→22:06)
[2019-12-30] MEDS: ACETAMINOPHEN 325 MG TABLET (FP) PO PRN (06:41)
[2019-12-30] MEDS: ARIPiprazole 2 MG TABLET PO SCH (09:08)
[2019-12-30] MEDS: cloNIDine HCL 0.1 MG TABLET PO SCH ×2 (09:08→22:04)
[2019-12-30] MEDS: FLUoxetine HCL 20 MG CAPSULE PO SCH (09:09)
[2019-12-30] MEDS: NICOTINE 7 MG/24 HOURS TOPICAL PATCH TD SCH (09:09)
[2019-12-30] MEDS: PRENATAL VITAMINS W/ FOLIC ACID TABLET (FP) PO SCH (09:09)
[2019-12-30] MEDS: NYSTATIN 100000 UNIT/GM TOPICAL OINTMENT 15 GM TUBE TP SCH ×2 (09:09→22:03)
[2019-12-30] MEDS: hydrOXYzine PAMOATE 25 MG CAPSULE (FP) PO PRN (19:14)
[2019-12-30] MEDS ORDERED: PT OWN MED DRAWER 7, Y5N ONE (19:57)
[2019-12-30] MEDS: THIAMINE HCL 100 MG TABLET (FP) PO SCH (22:04)
[2019-12-31] MEDS ORDERED: METHADONE HCL 5 MG TABLET ONE (05:29)
[2019-12-31] MEDS ORDERED: METHADONE HCL 40 MG DISPERSABLE TABLET ONE (05:29)
[2019-12-31] MEDS: METHADONE 40 MG, METHADONE 5 MG PO SCH (06:11)
[2019-12-31] MEDS: hydrOXYzine PAMOATE 25 MG CAPSULE (FP) PO PRN (06:14)
[2019-12-31 06:47] VITALS: TEMP 98
--- NOTE | 2019-12-31 09:21 | PN ---
[facility] Progress Note Note: patient charmaine like to leave,stated feel much better,would like to leave now to get to her methadone maintenance clinic will follow up with after care program as arrangement by counselor,left the unit in stable condition
--- NOTE | 2019-12-31 09:21 | DS ---
[facility] Detox Discharge Summary Admission Date: 12/23/19 - Physical Exam Results Vital Signs: Vital Signs Temperature 98.0 F 12/31/19 06:44 Pulse Rate 76 12/31/19 06:44 Respiratory Rate 16 12/31/19 06:44 Blood Pressure 112/71 12/31/19 06:44 O2 Sat by Pulse Oximetry (%) 98 12/31/19 06:44 - Medication Discharge Medications: Ambulatory Orders Albuterol Sulfate Inhaler - [Ventolin Hfa Inhaler -] 2 inh PO Q4H PRN 04/30/18 Aripiprazole [Abilify -] 2 mg PO DAILY 08/04/19 Fluoxetine HCl [Prozac -] 20 mg PO DAILY 08/04/19 Methadone HCl 50 mg PO DAILY 12/23/19 cloNIDine HCL [Catapres -] 0.3 mg PO BID 12/23/19
[2019-12-31 10:21] VITALS: BP 109/75; PULSE 82
== END 2019-12-31 09:24 | disposition home or self-care (01) | DRG 772 ==
LOC: YASAS 12:53 → Y3E 12:54
PROVIDERS: ADMIT Allergy & Immunology; ATTEND Allergy & Immunology
PROC: HZ42ZZZ Group Counseling for Substance Abuse Treatment, Cognitive-Behavioral (ICD-10-PCS; principal; 2019-12-23)
DX: F10.20 Alcohol dependence, uncomplicated (principal); F11.20 Opioid dependence, uncomplicated; F14.20 Cocaine dependence, uncomplicated; F17.210 Nicotine dependence, cigarettes, uncomplicated; F19.282 Other psychoactive substance dependence with psychoactive substance-induced sleep disorder; F19.24 Other psychoactive substance dependence with psychoactive substance-induced mood disorder; I10 Essential (primary) hypertension; M19.90 Unspecified osteoarthritis, unspecified site; J45.909 Unspecified asthma, uncomplicated; M54.5 Low back pain; G89.29 Other chronic pain; R21 Rash and other nonspecific skin eruption; L27.2 Dermatitis due to ingested food; R76.11 Nonspecific reaction to tuberculin skin test without active tuberculosis; Z86.2 Personal history of diseases of the blood and blood-forming organs and certain disorders involving the immune mechanism; Z91.018 Allergy to other foods
CPT/HCPCS: J0735; Q2036

== ENCOUNTER 2021-12-27 15:42 | Inpatient (IN) | payer OTHER ==
[2021-12-27 19:20] VITALS: BMI 27.4
[2021-12-28] MEDS ORDERED: ONDANSETRON *ODT* 4 MG TABLET SL PRN (05:22)
[2021-12-28] MEDS ORDERED: chlordiazePOXIDE HCL 25 MG CAPSULE PO PRN (05:22)
[2021-12-28] MEDS ORDERED: ACETAMINOPHEN 325 MG TABLET (FP) PO PRN ×2 (05:22)
[2021-12-28] MEDS ORDERED: DICYCLOMINE HCL 10 MG CAPSULE PO PRN (05:22)
[2021-12-28] MEDS ORDERED: IBUPROFEN 600 MG TABLET (FP) PO PRN (05:22)
[2021-12-28] MEDS ORDERED: MAGNESIUM HYDROX 2400MG/30ML ORAL SUSPENSION 30 ML CUP PO PRN (05:22)
[2021-12-28] MEDS ORDERED: BISMUTH SUBSALICYLATE 524 MG/30 ML PO PRN (05:22)
[2021-12-28] MEDS ORDERED: BENZOCAINE/MENTHOL (CHLORASEPTIC ) LOZENGE MM PRN (05:22)
[2021-12-28] MEDS ORDERED: METHOCARBAMOL 500 MG TABLET PO PRN (05:22)
[2021-12-28] MEDS ORDERED: LOPERAMIDE HCL 2 MG CAPSULE PO PRN (05:22)
[2021-12-28] MEDS ORDERED: IBUPROFEN 400 MG TABLET (FP) PO PRN (05:22)
[2021-12-28] MEDS ORDERED: NICOTINE POLACRILEX 2 MG GUM BUC PRN (05:22)
[2021-12-28] MEDS ORDERED: MAG HYDROX/AL HYDROX/SIMETH 30 ML UNIT-DOSE CUP PO PRN (05:22)
[2021-12-28] MEDS ORDERED: NALOXONE HCL (KLOXXADO) 8 MG SPRAY NS PRN (05:22)
[2021-12-28] MEDS ORDERED: MAGNESIUM CITRATE 300 ML BOTTLE PO PRN (05:22)
[2021-12-28] MEDS: chlordiazePOXIDE HCL 25 MG CAPSULE PO SCH ×4 (06:41→23:13)
[2021-12-28] MEDS ORDERED: methaDONE HCL 40 MG DISPERSABLE TABLET PO SCH (10:00)
[2021-12-28] MEDS: PRENATAL VITAMINS W/ FOLIC ACID TABLET (FP) PO SCH (10:50)
[2021-12-28] MEDS: NICOTINE 14 MG/24 HOURS TOPICAL PATCH TD SCH (10:51)
[2021-12-28] MEDS ORDERED: SUVOREXANT 10 MG TABLET PO PRN (14:18)
[2021-12-28] MEDS: MELATONIN 5 MG TABLETS PO SCH (23:13)
[2021-12-28] MEDS: THIAMINE HCL 100 MG TABLET (FP) PO SCH (23:13)
[2021-12-28] MEDS: GABAPENTIN 100 MG CAPSULE PO SCH (23:13)
[2021-12-29] MEDS: chlordiazePOXIDE HCL 25 MG CAPSULE PO SCH ×4 (06:24→23:42)
[2021-12-29] MEDS: GABAPENTIN 100 MG CAPSULE PO SCH ×4 (06:29→23:43)
[2021-12-29] MEDS ORDERED: ALBUTEROL SO4 HFA INHALER IH PRN (09:47)
[2021-12-29] MEDS ORDERED: cloNIDine HCL 0.1 MG TABLET PO SCH (10:00)
[2021-12-29] MEDS: NICOTINE 14 MG/24 HOURS TOPICAL PATCH TD SCH (11:02)
[2021-12-29] MEDS: PRENATAL VITAMINS W/ FOLIC ACID TABLET (FP) PO SCH (11:02)
[2021-12-29] MEDS: FLUoxetine HCL 20 MG CAPSULE PO SCH (11:02)
[2021-12-29 11:20] LABS: HEMATOCRIT 42.8 % (32.4-45.2); HEMOGLOBIN 13.7 GM/dL (10.7-15.3); MCH 30.4 pg (25.7-33.7); MEAN CELL VOLUME 94.9 fl (80-96); MEAN PLT VOLUME 10.2 fl (7.5-11.1); PLATELET COUNT 211 10^3/uL (134-434); RBC 4.51 M/mm3 (3.60-5.2); RDW 13.3 % (11.6-15.6); WHITE BLOOD COUNT 6.1 K/mm3 (4.0-10.0)
[2021-12-29 11:41] LABS: CALCIUM 9.8 mg/dL (8.5-10.1)
[2021-12-29 11:43] LABS: ALBUMIN 3.5 g/dl (3.4-5.0); BLOOD UREA NITROGEN 15.4 mg/dL (7-18)
[2021-12-29 11:45] LABS: CREATININE 0.8 mg/dL (0.55-1.3)
[2021-12-29 11:46] LABS: BILIRUBIN,TOTAL 0.2 mg/dL (0.2-1); TOT PROT 6.6 g/dl (6.4-8.2)
[2021-12-29] MEDS ORDERED: GABAPENTIN 300 MG CAPSULE PO SCH (22:00)
[2021-12-29] MEDS: cloNIDine HCL 0.1 MG TABLET PO SCH (23:42)
[2021-12-29] MEDS: MELATONIN 5 MG TABLETS PO SCH (23:43)
[2021-12-29] MEDS: THIAMINE HCL 100 MG TABLET (FP) PO SCH (23:43)
[2021-12-30] MEDS ORDERED: chlordiazePOXIDE HCL 10 MG CAPSULE PO PRN
[2021-12-30] MEDS: chlordiazePOXIDE HCL 10 MG CAPSULE PO SCH ×4 (06:32→22:24)
[2021-12-30] MEDS: GABAPENTIN 100 MG CAPSULE PO SCH (06:32)
[2021-12-30] MEDS: NICOTINE 14 MG/24 HOURS TOPICAL PATCH TD SCH (10:33)
[2021-12-30] MEDS: PRENATAL VITAMINS W/ FOLIC ACID TABLET (FP) PO SCH (10:34)
[2021-12-30] MEDS: amLODIPine BESYLATE 5 MG TABLET (FP) PO SCH (10:35)
[2021-12-30] MEDS: cloNIDine HCL 0.1 MG TABLET PO SCH ×2 (10:35→22:26)
[2021-12-30] MEDS: FLUoxetine HCL 20 MG CAPSULE PO SCH (10:38)
[2021-12-30] MEDS: GABAPENTIN 300 MG CAPSULE PO SCH ×2 (15:01→22:24)
[2021-12-30] MEDS: THIAMINE HCL 100 MG TABLET (FP) PO SCH (22:24)
[2021-12-30] MEDS: MELATONIN 5 MG TABLETS PO SCH (22:24)
[2021-12-31] MEDS: chlordiazePOXIDE HCL 10 MG CAPSULE PO SCH ×2 (05:50→18:02)
[2021-12-31] MEDS: GABAPENTIN 300 MG CAPSULE PO SCH ×3 (05:51→22:31)
[2021-12-31] MEDS: NICOTINE 14 MG/24 HOURS TOPICAL PATCH TD SCH (11:26)
[2021-12-31] MEDS: FLUoxetine HCL 20 MG CAPSULE PO SCH (11:28)
[2021-12-31] MEDS: PRENATAL VITAMINS W/ FOLIC ACID TABLET (FP) PO SCH (11:28)
[2021-12-31] MEDS: cloNIDine HCL 0.1 MG TABLET PO SCH ×2 (11:28→22:33)
[2021-12-31] MEDS: amLODIPine BESYLATE 5 MG TABLET (FP) PO SCH (11:29)
[2021-12-31 21:07] VITALS: TEMP 97.3
[2021-12-31] MEDS: THIAMINE HCL 100 MG TABLET (FP) PO SCH (22:31)
[2021-12-31] MEDS: MELATONIN 5 MG TABLETS PO SCH (22:32)
[2022-01-01] MEDS ORDERED: chlordiazePOXIDE HCL 10 MG CAPSULE PO ONE (05:00)
[2022-01-01] MEDS: GABAPENTIN 300 MG CAPSULE PO SCH (06:42)
[2022-01-01 07:05] VITALS: BP 134/89; PULSE 77; RESP 16
== END 2022-01-01 07:40 | disposition home or self-care (01) | DRG 773 ==
LOC: YASAS 15:42 → Y6N 12-28 05:19
PROVIDERS: ADMIT Allergy & Immunology; ATTEND Allergy & Immunology
PROC: HZ2ZZZZ Detoxification Services for Substance Abuse Treatment (ICD-10-PCS; principal; 2021-12-27)
DX: F10.230 Alcohol dependence with withdrawal, uncomplicated (principal); F11.20 Opioid dependence, uncomplicated; F14.20 Cocaine dependence, uncomplicated; F17.210 Nicotine dependence, cigarettes, uncomplicated; F31.9 Bipolar disorder, unspecified; F19.24 Other psychoactive substance dependence with psychoactive substance-induced mood disorder; D64.9 Anemia, unspecified; I10 Essential (primary) hypertension; J45.20 Mild intermittent asthma, uncomplicated; L30.9 Dermatitis, unspecified; R76.11 Nonspecific reaction to tuberculin skin test without active tuberculosis; Z91.014 Allergy to mammalian meats
CPT/HCPCS: 36415; 80053; 81025; 82962; 85027; 86780; 93005; 93010; C9803-CS; U0003; U0005